=== PATIENT | female | born 1950 | race Caucasian/White ===

== ENCOUNTER 2016-10-09 09:00 | Inpatient (IN) | payer MEDICARE ==
[2016-10-09] MEDS ORDERED: ceFAZolin 2 GM in SODIUM CHLORIDE 0.9% 100 ML IVPB STA (12:48)
[2016-10-09] MEDS ORDERED: LACTATED RINGERS 1,000 ML IV ONE (12:52)
[2016-10-09] MEDS ORDERED: LIDOCAINE 1% 20 ML VIAL (10MG/ML) FOR IV START INTRADERMA ONE (12:53)
[2016-10-09 12:57] LABS: Glucose,Whole Blood 159 mg/dL (75-99)
[2016-10-09] MEDS ORDERED: HEPARIN SODIUM,PORCINE 5,000 UNIT/ML 1 ML VIAL SQ STA (12:57)
[2016-10-09] MEDS ORDERED: ONDANSETRON 4 MG/2 ML VIAL IVP ONE (13:17)
[2016-10-09] MEDS ORDERED: DEXAMETHASONE SOD PHOS (MDV) 100 MG/10 ML VIAL IVP ONE (13:18)
[2016-10-09 13:35] LABS: Anisocytosis Slight; Aty Lym Flag Slight; CH 19.8; CHCM 26.3; HCT 29.5 % (34.0-46.0); HDW 3.18; HGB 8.2 gm/dL (11.4-16.0); Hypochromasia Marked; MCH 20.8 pg (25.0-35.0); MCHC 27.7 g/dL (31.0-37.0); MCV 75.2 fL (80.0-100.0); Mean Platelet Volume 8.4; Microcytosis Moderate; RBC 3.92 m/uL (3.80-5.40); RDW 17.4 % (11.5-15.5); WBC 8.2 k/uL (3.8-10.6); WBC (Perox) 8.66
[2016-10-09 13:38] LABS: Anion Gap 11 mmol/L; Blood Urea Nitrogen 23 mg/dL (7-17); C Reactive Protein 8.1 mg/L (<10.0); Carbon Dioxide 27 mmol/L (22-30); Chloride 104 mmol/L (98-107); Glucose 151 mg/dL (74-99); Magnesium 1.3 mg/dL (1.6-2.3); Non-African American GFR(MDRD) >60 (>60 ml/min/1.73 sqM); Potassium 4.2 mmol/L (3.5-5.1); Sodium 142 mmol/L (137-145)
[2016-10-09 13:47] LABS: INR 1.2 (<1.1); Prothrombin Time 12.2 sec (9.0-12.0)
[2016-10-09 14:18] LABS: Add Differential Manual Differential
[2016-10-09 14:19] LABS: Manual Review Performed; Nucleated Red Blood Cells 0 /100 WBC (0-0); Total Cells Counted 100
[2016-10-09 14:20] LABS: Toxic Granulation Present
[2016-10-09] MEDS ORDERED: PROPOFOL 10 MG/ML 20 ML VIAL IV ONE (14:37)
[2016-10-09] MEDS ORDERED: fentaNYL (PF) 50 MCG/ML 2 ML AMP ONE (14:37)
[2016-10-09] MEDS ORDERED: MIDAZOLAM 2 MG/2 ML VIAL ONE (14:37)
[2016-10-09] MEDS ORDERED: SUCCINYLCHOLINE CHLORIDE 100 MG/5 ML SYR IV ONE (14:37)
[2016-10-09] MEDS ORDERED: LIDOCAINE 1% INJ 10MG/ML (20 ML MDV) ONE (14:37)
[2016-10-09 14:58] LABS: Erythrocyte Sedimentation Rate 14 mm/hr (0-20)
[2016-10-09] MEDS ORDERED: SENNOSIDES-DOCUSATE SODIUM 1 EACH TAB PO PRN (15:35)
[2016-10-09] MEDS ORDERED: HYDROcodone/APAP 5-325MG 1 EACH TAB PO PRN (15:35)
[2016-10-09] MEDS ORDERED: diphenhydrAMINE 25 MG CAP PO PRN (15:35)
[2016-10-09] MEDS ORDERED: ONDANSETRON 4 MG/2 ML VIAL IVP PRN (15:35)
[2016-10-09] MEDS ORDERED: hydrOXYzine PAMOATE 25 MG CAP PO PRN (15:35)
[2016-10-09] MEDS ORDERED: PROCHLORPERAZINE SUPPOSITORY 25 MG SUPP RECTAL PRN (15:35)
[2016-10-09] MEDS ORDERED: TEMAZEPAM 15 MG CAP PO PRN (15:35)
[2016-10-09] MEDS ORDERED: METOCLOPRAMIDE 5 MG/ML 2 ML VIAL IVP PRN (15:35)
[2016-10-09] MEDS ORDERED: HYDROmorphone 1 MG/ML 1 ML SYRINGE IVP PRN ×3 (15:35)
[2016-10-09 16:04] LABS: Glucose,Whole Blood 178 mg/dL (75-99)
[2016-10-09 17:37] LABS: Glucose,Whole Blood 291 mg/dL (75-99)
[2016-10-09] MEDS: LACTATED RINGERS 1,000 ML IV SCH (19:22)
[2016-10-09] MEDS: SOTALOL 80 MG TAB PO SCH (20:40)
[2016-10-09] MEDS: ASPIRIN 325 MG TAB PO SCH (20:40)
[2016-10-09 21:16] LABS: Glucose,Whole Blood 330 mg/dL (75-99)
--- NOTE | 2016-10-09 21:59 | P.CONS ---
History of Present Illness - Reason for Consult Consult date: 10/09/16 - Chief Complaint Pain left knee - History of Present Illness 66-year-old female with a long-standing history of diabetes mellitus type 2, obesity, and COPD presents to Hospital status post fall more than a month ago. She relates that she was trying to kill [place] that was in the house. She lost her balance or 260 pounds fell directly onto the left knee. She felt like was a rug burn at first. In the following days it became worse. She saw her primary care physician. She was treated locally in the office. She had some local debridements performed in the office also. She then developed marked worsening. She was seen in orthopedics. She has now been admitted recently had a room for the surgical incision and drainage of the site. Possibly a patellar bursa debridement also occurred. She's feeling relatively well postoperative. Pain is well-controlled. She denying fevers, chills or rigors. Other new acute complaints at this time. Review of Systems HEENT:Denies headache or acute visual change. Denies sinus or mouth discomforts. Denies neck stiffness or pain. Denies significant oral cavity pain. Denies difficulty on swallowing. Lungs: She has chronic shortness of breath and cough without much sputum production. She has no hemoptysis. Cardiovascular: Chronic shortness of breath with cough but has no orthopnea or PND. She does have dyspnea on exertion. Denies chest pain or pressure Gastrointestinal:Denies nausea, vomiting, diarrhea, constipation, hematemesis, melena, hematochezia. No no significant change of bowel habit noticed. Musculoskeletal: denies significant myalgias or arthralgias. No new joint swelling. Denies new back pain. Skin: As per the HPI Neuro: Denies headache or visual change. Denies any new onset weakness or difficulty with ambulation. Denies falls or seizures. Psychiatric:Denies anxiety or depression. Endocrine: Denies significant fatigue, chronic weight gain Past Medical History Past Medical History: Atrial Fibrillation, Diabetes Mellitus, GERD/Reflux History of Any Multi-Drug Resistant Organisms: None Reported Past Surgical History: Appendectomy, Hysterectomy, Orthopedic Surgery, Tonsillectomy Additional Past Surgical History / Comment(s): cardioversion, arthroscopy lt knee Past Anesthesia/Blood Transfusion Reactions: No Reported Reaction Additional Psychological History / Comment(s): and lives independently. No animal exposures. Retired. Stopped smoking 3 years ago with a [id number] history. Denies alcohol abuse no experience. No travels Smoking Status: Former smoker - Past Family History Mother Family Medical History: No Reported History Medications and Allergies Home Medications and Allergies Comment(s): Current Medications Hydrocodone Bitart/Acetaminophen ([place] 5-325) 1 each PO Q6HR PRN PRN Reason: Pain Scale 1 to 5 Hydrocodone Bitart/Acetaminophen ([place] 5-325) 2 each PO Q6HR PRN PRN Reason: Pain Scale 6 to 10 Aspirin (Aspirin) 325 mg PO BID [facility] Last Admin: 10/09/16 20:40 Dose: Not Given Atenolol (Tenormin) 50 mg PO DAILY [facility] Diphenhydramine HCl (Benadryl) 25 mg PO HS PRN PRN Reason: Insomnia Furosemide (Lasix) 40 mg PO DAILY [facility] Hydromorphone HCl (Dilaudid) 0.125 mg IVP Q3HR PRN PRN Reason: Pain Scale 1 to 3 Hydromorphone HCl (Dilaudid) 0.25 mg IVP Q3HR PRN PRN Reason: Pain Scale 4 to 6 Hydromorphone HCl (Dilaudid) 0.5 mg IVP Q3HR PRN PRN Reason: Pain Scale 7 to 10 Lactated Ringer's (Lactated Ringers) 1,000 mls @ 20 mls/hr IV .Q24H [facility] Last Admin: 10/09/16 19:22 Dose: Not Given Cefazolin Sodium 2 gm/ Sodium (Chloride) 100 mls @ 100 mls/hr IVPB Q8HR [facility] Stop: 10/10/16 08:59 Isosorbide Mononitrate (Imdur) 60 mg PO DAILY [facility] Lisinopril (Zestril) 20 mg PO DAILY [facility] Metformin HCl (Glucophage) 1,000 mg PO BID-W/MEALS [facility] Metoclopramide HCl (Reglan) 10 mg IVP Q6HR PRN PRN Reason: Nausea And Vomiting Miscellaneous Information (Pre Op Abx Message) 1 each MISCELLANE ONCE ONE Stop: 10/10/16 05:01 Multivitamins (Theragran) 1 each PO DAILY@1200 [facility] Pantoprazole Sodium (Protonix) 40 mg PO AC-BRKFST [facility] Prochlorperazine Maleate (Compazine) 25 mg RECTAL BID PRN PRN Reason: Nausea And Vomiting Rivaroxaban (Xarelto) 20 mg PO W/SUPPER [facility] Senna/Docusate Sodium (Senokot-S) 2 each PO HS PRN PRN Reason: Constipation Sotalol HCl (Betapace) 80 mg PO BID [facility] Last Admin: 10/09/16 20:40 Dose: Not Given Temazepam (Restoril) 15 mg PO HS PRN PRN Reason: Insomnia Home Medications Medication Instructions Recorded Confirmed Type Aspirin 325 mg PO DAILY 06/17/16 10/09/16 History Atenolol [Tenormin] 50 mg PO DAILY 06/17/16 10/09/16 History Enalapril [Vasotec] 20 mg PO DAILY 06/17/16 10/09/16 History Furosemide [Lasix] 40 mg PO DAILY 06/17/16 10/09/16 History Isosorbide Mononitrate ER [Imdur] 60 mg PO DAILY 06/17/16 10/09/16 History Multivitamins, Thera [Multivitamin] 1 tab PO DAILY 06/17/16 10/09/16 History Omeprazole [PriLOSEC] 20 mg PO -[facility] 06/17/16 10/09/16 History Rivaroxaban [Xarelto] 20 mg PO DAILY 06/17/16 10/09/16 History Sotalol [Betapace] 80 mg PO BID 06/17/16 10/09/16 History metFORMIN HCL 1,000 mg PO BID 06/17/16 10/09/16 History Allergies Allergy/AdvReac Type Severity Reaction Status Date / Time No Known Allergies Allergy Verified 06/17/16 10:27 Physical Exam Vitals: Vital Signs Temp Pulse Pulse Resp BP BP Pulse Ox 10/09/16 16:20 84 18 164/80 96 10/09/16 16:05 87 18 162/82 96 10/09/16 15:50 79 18 166/85 97 10/09/16 15:35 85 18 182/84 97 10/09/16 15:20 97.6 F 96 20 184/79 96 10/09/16 12:20 97.8 F 85 16 149/91 96 Intake and Output 10/09/16 10/09/16 10/09/16 06:59 14:59 22:59 Intake Total 600 100 Output Total 5 Balance 600 95 Intake: IV 600 100 Output: Estimated Blood Loss 5 Other: Weight 117.934 kg Patient Weight 10/10/16 06:59 Weight 117.934 kg Obese 66-year-old woman who is comfortable at this time. HEENT: Anicteric conjunctiva are pink and moist nasal mucosa grossly intact without significant lesions, there is no thrush. Neck: The neck is supple without significant lymphadenopathy or thyromegaly. Lungs: Symmetrical air entry. Expiratory wheezes are scattered in the lung hernandez but no jesus bronchial sounds are heard. No dullness or egophony is noted. Heart: Regular rate and rhythm with an audible S1-S2, no S3 no S4. There is no significant murmur click or rub, PMI was nondisplaced. Abdomen: Obese, Positive bowel sounds soft and nontender without palpable masses or organomegaly. There was no guarding or rebound. Extremities: The upper extremities have excellent pulses they are symmetric, no significant petechiae or telangiectasia. No splinter hemorrhages were noted. T the right lower extremity reveals no acute injuries or lesions. The left lower extremity reveals evidence the recent surgical intervention and being such a short time the dressing is not removed. Above and below the dressing is not ascending erythema. No ascending lymphangitis. No lymphadenopathy to the left groin. No other abnormal lymph nodes are noted. Neuro: Awake alert oriented to person place and time. There are no acute new gross focal sensory motor deficits. Results CBC & Chem 7: 10/09/16 13:10 10/09/16 13:10 Labs: Abnormal Lab Results - Last 24 Hours (Table) 10/09/16 10/09/16 10/09/16 Range/Units 12:55 13:10 13:10 Hgb 8.2 L (11.4-16.0) gm/dL Hct 29.5 L (34.0-46.0) % MCV 75.2 L (80.0-100.0) fL MCH 20.8 L (25.0-35.0) pg MCHC 27.7 L (31.0-37.0) g/dL RDW 17.4 H (11.5-15.5) % PT (9.0-12.0) sec BUN 23 H (7-17) mg/dL Glucose 151 H (74-99) mg/dL POC Glucose (mg/dL) 159 H (75-99) mg/dL Magnesium 1.3 L (1.6-2.3) mg/dL 10/09/16 10/09/16 10/09/16 Range/Units 13:10 16:01 17:35 Hgb (11.4-16.0) gm/dL Hct (34.0-46.0) % MCV (80.0-100.0) fL MCH (25.0-35.0) pg MCHC (31.0-37.0) g/dL RDW (11.5-15.5) % PT 12.2 H (9.0-12.0) sec BUN (7-17) mg/dL Glucose (74-99) mg/dL POC Glucose (mg/dL) 178 H 291 H (75-99) mg/dL Magnesium (1.6-2.3) mg/dL 10/09/16 Range/Units 20:51 Hgb (11.4-16.0) gm/dL Hct (34.0-46.0) % MCV (80.0-100.0) fL MCH (25.0-35.0) pg MCHC (31.0-37.0) g/dL RDW (11.5-15.5) % PT (9.0-12.0) sec BUN (7-17) mg/dL Glucose (74-99) mg/dL POC Glucose (mg/dL) 330 H (75-99) mg/dL Magnesium (1.6-2.3) mg/dL Laboratory Results WBC 8.2 k/uL (3.8-10.6) 10/09/16 13:10 RBC 3.92 m/uL (3.80-5.40) 10/09/16 13:10 Hgb 8.2 gm/dL (11.4-16.0) L 10/09/16 13:10 Hct 29.5 % (34.0-46.0) L 10/09/16 13:10 MCV 75.2 fL (80.0-100.0) L 10/09/16 13:10 MCH 20.8 pg (25.0-35.0) L 10/09/16 13:10 MCHC 27.7 g/dL (31.0-37.0) L 10/09/16 13:10 RDW 17.4 % (11.5-15.5) H 10/09/16 13:10 Plt Count 351 k/uL (150-450) 10/09/16 13:10 Neutrophils % (Manual) 74.0 % 10/09/16 13:10 Lymphocytes % (Manual) 21.0 % 10/09/16 13:10 Monocytes % (Manual) 5.0 % 10/09/16 13:10 Neutrophils # (Manual) 6.1 k/uL (1.3-7.7) 10/09/16 13:10 Lymphocytes # (Manual) 1.7 k/uL (1.0-4.8) 10/09/16 13:10 Monocytes # (Manual) 0.4 k/uL (0-1.0) 10/09/16 13:10 Nucleated RBCs 0 /100 WBC (0-0) 10/09/16 13:10 Manual Slide Review Performed 10/09/16 13:10 Toxic Granulation Present 10/09/16 13:10 Hypochromasia Marked 10/09/16 13:10 Poikilocytosis (manual Present 10/09/16 13:10 Anisocytosis Slight 10/09/16 13:10 Microcytosis Moderate 10/09/16 13:10 ESR 14 mm/hr (0-20) 10/09/16 13:10 PT 12.2 sec (9.0-12.0) H 10/09/16 13:10 INR 1.2 (<1.1) 10/09/16 13:10 Sodium 142 mmol/L (137-145) 10/09/16 13:10 Potassium 4.2 mmol/L (3.5-5.1) 10/09/16 13:10 Chloride 104 mmol/L (98-107) 10/09/16 13:10 Carbon Dioxide 27 mmol/L (22-30) 10/09/16 13:10 Anion Gap 11 mmol/L 10/09/16 13:10 BUN 23 mg/dL (7-17) H 10/09/16 13:10 Creatinine 0.80 mg/dL (0.52-1.04) 10/09/16 13:10 Est GFR (MDRD) Af Amer >60 (>60 ml/min/1.73 sqM) 10/09/16 13:10 Est GFR (MDRD) Non-Af >60 (>60 ml/min/1.73 sqM) 10/09/16 13:10 Glucose 151 mg/dL (74-99) H 10/09/16 13:10 POC Glucose (mg/dL) 330 mg/dL (75-99) H 10/09/16 20:51 POC Glu Staff Physical Therapy Assistant ID Nidia Benites 10/09/16 20:51 Magnesium 1.3 mg/dL (1.6-2.3) L 10/09/16 13:10 C-Reactive Protein 8.1 mg/L (<10.0) 10/09/16 13:10 Assessment and Plan (1) Ulcer of left knee Narrative/Plan: 66-year-old female with a history of obesity, diabetes mellitus type 2 poorly controlled and COPD presents to Hospital for evaluation and surgical incision and drainage of her left knee. Suffered a fall approximately a month ago was been having a nonhealing ulceration since. Appears to possibly had a bursal involvement. Now status post incision and drainage. Dressings intact at this time. Cultures are process. No notation from the out patient evaluations of MRSA. We'll continue ceftezole and and high dose given her obesity and normal renal function. Local wound care can be derived once the postsurgical dressings are removed. If the bursa infection was encountered may do well to have a course of intravenous antibiotic therapy at discharge. Status: Acute (2) Traumatic ecchymosis of left knee Status: Acute (3) Diabetes mellitus type 2 in obese Status: Acute (4) Anemia Status: Acute
[2016-10-09] MEDS: HYDROcodone/APAP 5-325MG 1 EACH TAB PO PRN (22:46)
[2016-10-10] MEDS: ceFAZolin 2 GM in SODIUM CHLORIDE 0.9% 100 ML IVPB SCH ×2 (00:35→07:20)
[2016-10-10] MEDS: HYDROcodone/APAP 5-325MG 1 EACH TAB PO PRN ×2 (01:07→17:46)
[2016-10-10] MEDS ORDERED: Pre Op ABX Message 1 EACH MISC MISCELLANE ONE (05:00)
[2016-10-10] MEDS ORDERED: PANTOPRAZOLE 40 MG TABLET PO SCH (07:30)
[2016-10-10] MEDS ORDERED: metFORMIN 500 MG TAB PO SCH ×4 (07:30→19:30)
[2016-10-10 07:38] LABS: Glucose,Whole Blood 264 mg/dL (75-99)
[2016-10-10 08:52] LABS: Anisocytosis Slight; Aty Lym Flag Slight; CH 19.7; CHCM 24.9; HCT 29.1 % (34.0-46.0); HDW 2.99; HGB 7.6 gm/dL (11.4-16.0); Hypochromasia Marked; MCH 20.5 pg (25.0-35.0); MCV 78.9 fL (80.0-100.0); Mean Platelet Volume 7.1; Microcytosis Slight; RBC 3.69 m/uL (3.80-5.40); RDW 17.2 % (11.5-15.5); WBC 12.2 k/uL (3.8-10.6); WBC (Perox) 13.04
[2016-10-10] MEDS ORDERED: FUROSEMIDE 40 MG TAB PO SCH (09:00)
[2016-10-10] MEDS ORDERED: LISINOPRIL 20 MG TAB PO SCH ×2 (09:00→18:00)
[2016-10-10] MEDS ORDERED: ATENOLOL 50 MG TAB PO SCH (09:00)
[2016-10-10] MEDS ORDERED: ISOSORBIDE MONONITRATE ER 60 MG TAB.ER.24H PO SCH (09:00)
--- NOTE | 2016-10-10 09:02 | P.PN ---
Subjective Principal diagnosis: Open wound left knee Status post irrigation and debridement left knee This is a 66-year-old female who is status post irrigation and debridement of her wound to the left knee. We are waiting recommendations by infectious disease. She is doing well today with no new complaints or concerns. Vital signs are stable. Objective - Vital Signs Vital signs: Vital Signs Temp 97.9 F 10/10/16 07:00 Pulse 92 10/10/16 07:00 Resp 20 10/10/16 07:00 BP 130/60 10/10/16 07:00 Pulse Ox 95 10/10/16 07:00 Intake & Output 10/09/16 10/10/16 10/10/16 18:59 06:59 18:59 Intake Total 700 1090 Output Total 5 Balance 695 1090 Weight 117.934 kg Intake: IV 700 Intake, IV Titration 300 Amount Lactated Ringers 1,000 ml 200 @ 20 mls/hr IV .Q24H [facility] Rx#:[id number] ceFAZolin 2 gm In Sodium 100 Chloride 0.9% 100 ml @ 100 mls/hr IVPB Q8HR [facility] Rx#:[id number] Oral 790 Output: Estimated Blood Loss 5 Other: Voiding Method Toilet # Voids 3 2 - Exam This is a pleasant 66-year-old female in no acute distress. She is alert and oriented 3. Exam the left knee reveals that her dressing is clean, dry and intact. She has full foot and ankle motion without difficulty or pain. Neurovascular status to the lower extremities intact. - Labs CBC & Chem 7: 10/09/16 13:10 10/09/16 13:10 Labs: Abnormal Lab Results - Last 24 Hours (Table) 10/09/16 10/09/16 10/09/16 Range/Units 12:55 13:10 13:10 Hgb 8.2 L (11.4-16.0) gm/dL Hct 29.5 L (34.0-46.0) % MCV 75.2 L (80.0-100.0) fL MCH 20.8 L (25.0-35.0) pg MCHC 27.7 L (31.0-37.0) g/dL RDW 17.4 H (11.5-15.5) % PT (9.0-12.0) sec BUN 23 H (7-17) mg/dL Glucose 151 H (74-99) mg/dL POC Glucose (mg/dL) 159 H (75-99) mg/dL Magnesium 1.3 L (1.6-2.3) mg/dL 10/09/16 10/09/16 10/09/16 Range/Units 13:10 16:01 17:35 Hgb (11.4-16.0) gm/dL Hct (34.0-46.0) % MCV (80.0-100.0) fL MCH (25.0-35.0) pg MCHC (31.0-37.0) g/dL RDW (11.5-15.5) % PT 12.2 H (9.0-12.0) sec BUN (7-17) mg/dL Glucose (74-99) mg/dL POC Glucose (mg/dL) 178 H 291 H (75-99) mg/dL Magnesium (1.6-2.3) mg/dL 10/09/16 10/10/16 Range/Units 20:51 07:29 Hgb (11.4-16.0) gm/dL Hct (34.0-46.0) % MCV (80.0-100.0) fL MCH (25.0-35.0) pg MCHC (31.0-37.0) g/dL RDW (11.5-15.5) % PT (9.0-12.0) sec BUN (7-17) mg/dL Glucose (74-99) mg/dL POC Glucose (mg/dL) 330 H 264 H (75-99) mg/dL Magnesium (1.6-2.3) mg/dL Microbiology - Last 24 Hours (Table) 10/09/16 15:02 Gram Stain - Preliminary Knee - Left Wound Culture - Preliminary 10/09/16 15:02 Anaerobic Culture - Preliminary Knee - Left Assessment and Plan (1) Diabetes mellitus type 2 in obese Status: Acute (2) Open wound of left knee Status: Acute Plan: The clinical findings are discussed the patient. We're waiting recommendations for wound care by Dr. Cortés. She'll most likely follow-up with home care center.
[2016-10-10] MEDS: ASPIRIN 325 MG TAB PO SCH ×2 (09:26→20:15)
[2016-10-10] MEDS: SOTALOL 80 MG TAB PO SCH (09:27)
[2016-10-10 10:45] LABS: Add Differential Manual Differential
[2016-10-10 10:46] LABS: Manual Review Performed; Nucleated Red Blood Cells 0 /100 WBC (0-0); Total Cells Counted 100
[2016-10-10 11:29] LABS: Glucose,Whole Blood 168 mg/dL (75-99)
[2016-10-10] MEDS: LACTATED RINGERS 1,000 ML IV SCH (14:19)
[2016-10-10] MEDS: MULTIVITAMINS, THERA 1 EACH TAB PO SCH (14:20)
[2016-10-10] MEDS ORDERED: ALPRAZolam 0.25 MG TAB PO PRN (16:47)
--- NOTE | 2016-10-10 17:10 | OP ---
DATE OF SERVICE: 10/09/2016 SURGEON: MYAH TONG DO CONTRACT CONSULTANT: none PREOPERATIVE DIAGNOSIS: Open devitalized wound of the anterior aspect of the left knee following contusion. POSTOPERATIVE DIAGNOSIS: Open devitalized wound of the anterior aspect of the left knee following contusion; possible underlying infection. OPERATION: Surgical debridement of the devitalized soft tissue, anterior aspect of the left knee with full thickness incision and [place] drain placement patella. ANESTHESIA: ESTIMATED BLOOD LOSS: SPECIMENS REMOVED: COMPLICATIONS: OPERATIVE FINDINGS: DESCRIPTION OF PROCEDURE: The patient was taken to the operative suite and placed in supine position. General inhalation anesthesia was performed by the department of anesthesiology. Betadine prep was carried out over the left knee and sterile drapes were applied in the usual manner. Sharp debridement through the subcutaneous layer and around edges was carried out. The subcutaneous tissue was excised and copiously irrigated with Pulsavac antibiotic solution was performed. A [place] drain was inserted and sutured into position with 2-0 Vicryl. A sterile dressing utilizing the Silvadene was placed in the wound. Adaptic 4x4 sterile padding was maintained. She was transferred to the recovery room in satisfactory postoperative condition. GROSS PATHOLOGY: There was evidence of delayed healing with patella contusion approximately 5 weeks ago. A culture and sensitivity was obtained from wound. Wound care was ordered with possible wound vac. DARIANA
[2016-10-10] MEDS ORDERED: RIVAROXABAN 10 MG TAB PO SCH (17:30)
[2016-10-10 17:32] LABS: Glucose,Whole Blood 116 mg/dL (75-99)
[2016-10-10] MEDS: INSULIN LISPRO (humaLOG) 300 UNIT/3 ML VIAL SQ SCH ×2 (17:45→20:15)
[2016-10-10 18:47] LABS: Hemoglobin A1C 6.3 % (4.2-6.1)
[2016-10-10 18:53] LABS: Appearance,Urine Clear (Clear); Bilirubin,Urine Negative (Negative); Glucose,Urine (UA) Negative (Negative); Ketones,Urine Negative (Negative); Leukocyte Esterase,Urine Negative (Negative); Nitrite,Urine Negative (Negative); PH, Urine 5.5 (5.0-8.0); Particle Count 1304; Protein,Urine 1+ (Negative); RBC,Urine 1 /hpf (0-5); Specific Gravity,Urine 1.025 (1.001-1.035); Squamous Epithelial Cell,Urine 1 /hpf (0-4); UA Billing (MACRO vs. MICRO) MICRO; Urobilinogen,Urine <2.0 mg/dL (<2.0); WBC,Urine 1 /hpf (0-5)
--- NOTE | 2016-10-10 18:55 | CONS ---
DATE OF CONSULTATION: 10/10/2016 REASON FOR CONSULTATION: Advice regarding diabetes mellitus and other multiple medical issues requested by Dr. Lopez. HISTORY OF PRESENT ILLNESS: This 66 year old woman with a past medical history of multiple medical problems including atrial fibrillation, diabetes mellitus, GERD, history of appendectomy, history of hysterectomy, being followed by Dr. Reilly in the outpatient setting apparently feel on the left knee about a few weeks ago. The patient is sustained an ulcer, which was not improving and the patient came to [facility] and Dr. Lopez saw the patient and performed irrigation and debridement of the wound to the left knee. The final cultures are pending at this time. The patient on broad-spectrum IV antibiotics. There is no history of any fever, rigors or chills. No history of headache, loss of consciousness or seizures at this time. Past medical history of atrial fibrillation, diabetes, gastroesophageal reflux disease, appendectomy, history of orthopedic surgery. Medications prior to admission include: 1. Metformin 1000 mg p.o. b.i.d. 2. Sotalol 80 mg p.o. b.i.d. 3. Xarelto 20 mg p.o. daily. 4. Prilosec 20 mg q.h.s. 5. Multivitamin one p.o. daily. 6. Imdur 60 mg. 7. Lasix 40 mg. 8. Vasotec 20 mg b.i.d. 9. Tenormin 50 mg daily. 10. Aspirin 325 mg daily. ALLERGIES: None. FAMILY HISTORY: No history of heart disease or strokes in the family. SOCIAL HISTORY: Previous history of smoking. No history of current smoking or alcohol intake. REVIEW OF SYSTEMS: ENT: No diminishing hearing. No diminished vision. CARDIOVASCULAR: No angina or palpitations. RESPIRATORY: No cough. GI: No nausea. : No dysuria. Nervous system: No numbness, weakness. ALLERGIES/IMMUNOLOGY: No history of asthma or hayfever. MUSCULOSKELETAL: As mentioned earlier. HEMATOLOGY/ONCOLOGY: As mentioned earlier. ENDOCRINE: As mentioned earlier. CONSTITUTIONAL: As mentioned earlier. DERMATOLOGY: Negative. RHEUMATOLOGY: Negative. PSYCHIATRY: As mentioned earlier. PHYSICAL EXAMINATION: The patient is alert and oriented x3. Pulse 89, blood pressure 138/75. Respiratory rate 16. Temperature 98.1. Pulse ox 92% on room air. HEENT: Conjunctivae normal. Oral mucosa moist. NECK: No jugular venous distention. No carotid bruit. No lymph node enlargement. CARDIOVASCULAR: S1, S2 muffled. RESPIRATORY: Breath sounds diminished at the bases. No rhonchi, no crackles. ABDOMEN: Soft, nontender, obese. No mass palpable. Legs: Status post left irrigation and debridement of the left knee, which is dressed. Otherwise pulses felt normal. CENTRAL NERVOUS SYSTEM: Higher function as mentioned. Moves all four limbs. No focal motor or sensory deficits. LYMPHATICS: No lymph nodes palpable in the neck, axillae or groin. SKIN: As mentioned earlier. LABS: WBC 12.5, hemoglobin 7.6 Accu-Cheks noted. ASSESSMENT: 1. Left ulcer, possibly posttraumatic, status post irrigation and debridement. 2. Diabetes mellitus type 2. 3. Hypomagnesemia. 4. Anemia, normocytic anemia of chronic disease. 5. Increased WBC. 6. Obesity with body mass index of 38.5. 7. History of atrial fibrillation. 8. History of diabetes mellitus type 2. 9. History of gastroesophageal reflux disease. 10. History of appendectomy. 11. History of hysterectomy. 12. Remote history of nicotine dependence. 13. FULL CODE. RECOMMENDATIONS AND DISCUSSION: In this 66-year-old woman who presented with multiple complex medical problems, we will monitor the patient closely, continue the current medications, continue symptomatic treatment. Recommend resume the home medications. Accu-Cheks a.c. and at bedtime and empiric antibiotics. Follow the cultures. Closely follow with infectious disease. Guarded prognosis because of multiple complex medical issues. Further recommendations to follow. A copy of dictation being forwarded to Dr. Reilly who is the primary physician. Deep venous thrombosis prophylaxis.
[2016-10-10] MEDS ORDERED: SOTALOL 80 MG TAB PO SCH ×2 (19:30)
[2016-10-10] MEDS ORDERED: ATENOLOL 50 MG PO SCH (20:11)
[2016-10-10 21:11] LABS: Glucose,Whole Blood 147 mg/dL (75-99)
--- NOTE | 2016-10-10 23:03 | P.PN ---
Subjective Principal diagnosis: trauma left knee 66-year-old female with a long-standing history of diabetes mellitus type 2, obesity, and COPD presents to Hospital status post fall more than a month ago. She relates that she was trying to kill [place] that was in the house. She lost her balance or 260 pounds fell directly onto the left knee. She felt like was a rug burn at first. In the following days it became worse. She saw her primary care physician. She was treated locally in the office. She had some local debridements performed in the office also. She then developed marked worsening. She was seen in orthopedics. She has now been admitted recently had a room for the surgical incision and drainage of the site. Possibly a patellar bursa debridement also occurred. She's feeling relatively well postoperative. Pain is well-controlled. She denying fevers, chills or rigors. Other new acute complaints at this time. eeling better today. Case is discussed with the surgeons a deep debridement has occurred and appears to involve the bursa Objective - Vital Signs Vital signs: Vital Signs Temp 98.1 F 10/10/16 15:00 Pulse 89 10/10/16 22:51 Resp 16 10/10/16 22:51 BP 138/75 10/10/16 15:00 Pulse Ox 91 L 10/10/16 15:00 Intake & Output 10/10/16 10/10/16 10/11/16 06:59 18:59 06:59 Intake Total 1090 1580 80 Balance 1090 1580 80 Intake: Intake, IV Titration 300 260 80 Amount Lactated Ringers 1,000 ml 200 160 80 @ 20 mls/hr IV .Q24H NEREIDA Rx#:[id number] ceFAZolin 2 gm In Sodium 100 100 Chloride 0.9% 100 ml @ 100 mls/hr IVPB Q8HR NEREIDA Rx#:[id number] Oral 790 1320 Other: Voiding Method Toilet Toilet Toilet # Voids 3 3 - Exam Obese 66-year-old woman who is comfortable at this time. HEENT: Anicteric conjunctiva are pink and moist nasal mucosa grossly intact without significant lesions, there is no thrush. Neck: The neck is supple without significant lymphadenopathy or thyromegaly. Lungs: Symmetrical air entry. Expiratory wheezes are scattered in the lung hernandez but no jesus bronchial sounds are heard. No dullness or egophony is noted. Heart: Regular rate and rhythm with an audible S1-S2, no S3 no S4. There is no significant murmur click or rub, PMI was nondisplaced. Abdomen: Obese, Positive bowel sounds soft and nontender without palpable masses or organomegaly. There was no guarding or rebound. Extremities: The upper extremities have excellent pulses they are symmetric, no significant petechiae or telangiectasia. No splinter hemorrhages were noted. T the right lower extremity reveals no acute injuries or lesions. The left lower extremity reveals evidence the recent surgical intervention The surgical ulceration is noted. Measuring at 3.2 x 5.1 x 0.7 cm. There is some undermining at the 6 o'clock position of about a centimeter. There is still good amount of slough at the base the wound. Drainage is still in place. This is minimally tender. . No ascending lymphangitis. No lymphadenopathy to the left groin. No other abnormal lymph nodes are noted. Neuro: Awake alert oriented to person place and time. There are no acute new gross focal sensory motor deficits. - Labs CBC & Chem 7: 10/10/16 08:00 10/09/16 13:10 Labs: Abnormal Lab Results - Last 24 Hours (Table) 10/10/16 10/10/16 10/10/16 Range/Units 07:29 08:00 08:00 WBC 12.2 H (3.8-10.6) k/uL RBC 3.69 L (3.80-5.40) m/uL Hgb 7.6 L (11.4-16.0) gm/dL Hct 29.1 L (34.0-46.0) % MCV 78.9 L (80.0-100.0) fL MCH 20.5 L (25.0-35.0) pg MCHC 26.0 L (31.0-37.0) g/dL RDW 17.2 H (11.5-15.5) % Neutrophils # (Manual) 10.0 H (1.3-7.7) k/uL Lymphocytes # (Manual) 0.9 L (1.0-4.8) k/uL Monocytes # (Manual) 1.3 H (0-1.0) k/uL POC Glucose (mg/dL) 264 H (75-99) mg/dL Hemoglobin A1c 6.3 H (4.2-6.1) % Urine Protein (Negative) 10/10/16 10/10/16 10/10/16 Range/Units 11:23 17:29 18:30 WBC (3.8-10.6) k/uL RBC (3.80-5.40) m/uL Hgb (11.4-16.0) gm/dL Hct (34.0-46.0) % MCV (80.0-100.0) fL MCH (25.0-35.0) pg MCHC (31.0-37.0) g/dL RDW (11.5-15.5) % Neutrophils # (Manual) (1.3-7.7) k/uL Lymphocytes # (Manual) (1.0-4.8) k/uL Monocytes # (Manual) (0-1.0) k/uL POC Glucose (mg/dL) 168 H 116 H (75-99) mg/dL Hemoglobin A1c (4.2-6.1) % Urine Protein 1+ H (Negative) 10/10/16 Range/Units 21:02 WBC (3.8-10.6) k/uL RBC (3.80-5.40) m/uL Hgb (11.4-16.0) gm/dL Hct (34.0-46.0) % MCV (80.0-100.0) fL MCH (25.0-35.0) pg MCHC (31.0-37.0) g/dL RDW (11.5-15.5) % Neutrophils # (Manual) (1.3-7.7) k/uL Lymphocytes # (Manual) (1.0-4.8) k/uL Monocytes # (Manual) (0-1.0) k/uL POC Glucose (mg/dL) 147 H (75-99) mg/dL Hemoglobin A1c (4.2-6.1) % Urine Protein (Negative) Microbiology - Last 24 Hours (Table) 10/09/16 15:02 Gram Stain - Preliminary Knee - Left Wound Culture - Preliminary Presumptive Staph aureus 10/09/16 15:02 Anaerobic Culture - Preliminary Knee - Left Laboratory Results WBC 12.2 k/uL (3.8-10.6) H 10/10/16 08:00 RBC 3.69 m/uL (3.80-5.40) L 10/10/16 08:00 Hgb 7.6 gm/dL (11.4-16.0) L 10/10/16 08:00 Hct 29.1 % (34.0-46.0) L 10/10/16 08:00 MCV 78.9 fL (80.0-100.0) L 10/10/16 08:00 MCH 20.5 pg (25.0-35.0) L 10/10/16 08:00 MCHC 26.0 g/dL (31.0-37.0) L 10/10/16 08:00 RDW 17.2 % (11.5-15.5) H 10/10/16 08:00 Plt Count 364 k/uL (150-450) 10/10/16 08:00 Neutrophils % (Manual) 82.0 % 10/10/16 08:00 Lymphocytes % (Manual) 7.0 % 10/10/16 08:00 Monocytes % (Manual) 11.0 % 10/10/16 08:00 Neutrophils # (Manual) 10.0 k/uL (1.3-7.7) H 10/10/16 08:00 Lymphocytes # (Manual) 0.9 k/uL (1.0-4.8) L 10/10/16 08:00 Monocytes # (Manual) 1.3 k/uL (0-1.0) H 10/10/16 08:00 Nucleated RBCs 0 /100 WBC (0-0) 10/10/16 08:00 Manual Slide Review Performed 10/10/16 08:00 Toxic Granulation Present 10/09/16 13:10 Hypochromasia Marked 10/10/16 08:00 Poikilocytosis (manual Present 10/10/16 08:00 Anisocytosis Slight 10/10/16 08:00 Microcytosis Slight 10/10/16 08:00 ESR 14 mm/hr (0-20) 10/09/16 13:10 PT 12.2 sec (9.0-12.0) H 10/09/16 13:10 INR 1.2 (<1.1) 10/09/16 13:10 Sodium 142 mmol/L (137-145) 10/09/16 13:10 Potassium 4.2 mmol/L (3.5-5.1) 10/09/16 13:10 Chloride 104 mmol/L (98-107) 10/09/16 13:10 Carbon Dioxide 27 mmol/L (22-30) 10/09/16 13:10 Anion Gap 11 mmol/L 10/09/16 13:10 BUN 23 mg/dL (7-17) H 10/09/16 13:10 Creatinine 0.80 mg/dL (0.52-1.04) 10/09/16 13:10 Est GFR (MDRD) Af Amer >60 (>60 ml/min/1.73 sqM) 10/09/16 13:10 Est GFR (MDRD) Non-Af >60 (>60 ml/min/1.73 sqM) 10/09/16 13:10 Glucose 151 mg/dL (74-99) H 10/09/16 13:10 POC Glucose (mg/dL) 147 mg/dL (75-99) H 10/10/16 21:02 POC Glu [employer] Engineer JEM Kassidy Dill 10/10/16 21:[address] Glu mg/dL 134 mg/dL 10/10/16 08:00 Hemoglobin A1c 6.3 % (4.2-6.1) H 10/10/16 08:00 Magnesium 1.3 mg/dL (1.6-2.3) L 10/09/16 13:10 C-Reactive Protein 8.1 mg/L (<10.0) 10/09/16 13:10 Urine Color Yellow 10/10/16 18:30 Urine Appearance Clear (Clear) 10/10/16 18:30 Urine pH 5.5 (5.0-8.0) 10/10/16 18:30 Ur Specific Meta 1.025 (1.001-1.035) 10/10/16 18:30 Urine Protein 1+ (Negative) H 10/10/16 18:30 Urine Glucose (UA) Negative (Negative) 10/10/16 18:30 Urine Ketones Negative (Negative) 10/10/16 18:30 Urine Blood Negative (Negative) 10/10/16 18:30 Urine Nitrite Negative (Negative) 10/10/16 18:30 Urine Bilirubin Negative (Negative) 10/10/16 18:30 Urine Urobilinogen <2.0 mg/dL (<2.0) 10/10/16 18:30 Ur Leukocyte Esterase Negative (Negative) 10/10/16 18:30 Urine RBC 1 /hpf (0-5) 10/10/16 18:30 Urine WBC 1 /hpf (0-5) 10/10/16 18:30 Ur Squamous Epith Cells 1 /hpf (0-4) 10/10/16 18:30 Hyaline Casts 1 /lpf (0-2) 10/10/16 18:30 Microbiology 10/09/16 15:02 Knee - Left Gram Stain - Preliminary 10/09/16 15:02 Knee - Left Wound Culture - Preliminary Presumptive Staph aureus 10/09/16 15:02 Knee - Left Anaerobic Culture - Preliminary Assessment and Plan (1) Ulcer of left knee Narrative/Plan: 66-year-old female with a history of obesity, diabetes mellitus type 2 poorly controlled and COPD presents to Hospital for evaluation and surgical incision and drainage of her left knee. Suffered a fall approximately a month ago was been having a nonhealing ulceration since. Appears to possibly had a bursal involvement. Now status post incision and drainage. Dressings intact at this time. Cultures are process. No notation from the out patient evaluations of MRSA. We'll continue ceftezole and and high dose given her obesity and normal renal function. Local wound care will be opticell silver and once infection is improved then wound vac can be used. Appears the infection is deep and will plan a course of outpatient IV antibiotic therapy likely at the office. Cultures will direct antibiotic therapy. PICC on thursday Status: Acute (2) Traumatic ecchymosis of left knee Status: Acute (3) Diabetes mellitus type 2 in obese Status: Acute (4) Anemia Status: Acute
[2016-10-11 07:14] LABS: Glucose,Whole Blood 129 mg/dL (75-99)
[2016-10-11] MEDS ORDERED: PANTOPRAZOLE 40 MG TABLET PO SCH (07:30)
[2016-10-11] MEDS: ASPIRIN 325 MG TAB PO SCH ×2 (08:03→20:16)
[2016-10-11] MEDS: INSULIN LISPRO (humaLOG) 300 UNIT/3 ML VIAL SQ SCH ×4 (08:03→20:16)
[2016-10-11] MEDS: OMEPRAZOLE 20 MG PO SCH (08:03)
[2016-10-11] MEDS: METFORMIN 1000 MG PO SCH ×2 (08:03→20:15)
[2016-10-11] MEDS: SOTALOL 80 MG PO SCH ×2 (08:04→20:15)
[2016-10-11] MEDS: ENALAPRIL 20 MG PO SCH (08:04)
[2016-10-11] MEDS: FUROSEMIDE 40 MG PO SCH (08:04)
[2016-10-11] MEDS: ATENOLOL 50 MG PO SCH (08:04)
[2016-10-11] MEDS: ISOSORBIDE MONONITRATE 60 MG PO SCH (08:04)
[2016-10-11 08:53] LABS: Anisocytosis Slight; Aty Lym Flag Slight; CH 19.7; HDW 2.96; HGB 7.9 gm/dL (11.4-16.0); Hypochromasia Marked; MCH 21.5 pg (25.0-35.0); MCHC 27.3 g/dL (31.0-37.0); MCV 78.8 fL (80.0-100.0); Mean Platelet Volume 7.5; Microcytosis Slight; RBC 3.68 m/uL (3.80-5.40); RDW 17.1 % (11.5-15.5); WBC 11.4 k/uL (3.8-10.6); WBC (Perox) 11.41
[2016-10-11 08:56] LABS: Anion Gap 12 mmol/L; Blood Urea Nitrogen 35 mg/dL (7-17); Calcium 8.8 mg/dL (8.4-10.2); Carbon Dioxide 26 mmol/L (22-30); Chloride 104 mmol/L (98-107); Glucose 107 mg/dL (74-99); Magnesium 1.4 mg/dL (1.6-2.3); Non-African American GFR(MDRD) 55 (>60 ml/min/1.73 sqM); Potassium 4.6 mmol/L (3.5-5.1); Sodium 142 mmol/L (137-145)
--- NOTE | 2016-10-11 09:53 | P.PN ---
Subjective Principal diagnosis: Open wound of left knee, Status post irrigation and debridement left knee This is a pleasant 66-year-old female status post irrigation and debridement of the left knee. This is postoperative day #1. Patient reports her pain is under control. Patient states she has been keeping the wound covered as directed. Patient denies any fever/chills. Patient has no new complaints today. Objective - Vital Signs Vital signs: Vital Signs Temp 97.5 F L 10/11/16 07:00 Pulse 81 10/11/16 07:00 Resp 18 10/11/16 07:00 BP 147/70 10/11/16 07:00 Pulse Ox 92 L 10/11/16 07:00 Intake & Output 10/10/16 10/11/16 10/11/16 18:59 06:59 18:59 Intake Total 1580 80 Balance 1580 80 Intake: Intake, IV Titration 260 80 Amount Lactated Ringers 1,000 ml 160 80 @ 20 mls/hr IV .Q24H NEREIDA Rx#:[id number] ceFAZolin 2 gm In Sodium 100 Chloride 0.9% 100 ml @ 100 mls/hr IVPB Q8HR NEREIDA Rx#:[id number] Oral 1320 Other: Voiding Method Toilet Toilet # Voids 3 1 - Exam Vital signs are stable. Patient is in no acute distress and is alert and oriented 3. Calf is soft and nontender. Surgical wound site is clean and covered with a dressing. There is mild drainage from the surgical site. No significant surrounding erythema. No tenderness to palpation. Neurovascular status intact. Patient has full foot and ankle motion. - Labs CBC & Chem 7: 10/11/16 08:04 10/11/16 08:04 Labs: Abnormal Lab Results - Last 24 Hours (Table) 10/10/16 10/10/16 10/10/16 Range/Units 08:00 08:00 11:23 WBC (3.8-10.6) k/uL RBC (3.80-5.40) m/uL Hgb (11.4-16.0) gm/dL Hct (34.0-46.0) % MCV (80.0-100.0) fL MCH (25.0-35.0) pg MCHC (31.0-37.0) g/dL RDW (11.5-15.5) % Neutrophils # (Manual) 10.0 H (1.3-7.7) k/uL Lymphocytes # (Manual) 0.9 L (1.0-4.8) k/uL Monocytes # (Manual) 1.3 H (0-1.0) k/uL BUN (7-17) mg/dL Glucose (74-99) mg/dL POC Glucose (mg/dL) 168 H (75-99) mg/dL Hemoglobin A1c 6.3 H (4.2-6.1) % Magnesium (1.6-2.3) mg/dL Urine Protein (Negative) 10/10/16 10/10/16 10/10/16 Range/Units 17:29 18:30 21:02 WBC (3.8-10.6) k/uL RBC (3.80-5.40) m/uL Hgb (11.4-16.0) gm/dL Hct (34.0-46.0) % MCV (80.0-100.0) fL MCH (25.0-35.0) pg MCHC (31.0-37.0) g/dL RDW (11.5-15.5) % Neutrophils # (Manual) (1.3-7.7) k/uL Lymphocytes # (Manual) (1.0-4.8) k/uL Monocytes # (Manual) (0-1.0) k/uL BUN (7-17) mg/dL Glucose (74-99) mg/dL POC Glucose (mg/dL) 116 H 147 H (75-99) mg/dL Hemoglobin A1c (4.2-6.1) % Magnesium (1.6-2.3) mg/dL Urine Protein 1+ H (Negative) 10/11/16 10/11/16 10/11/16 Range/Units 07:12 08:04 08:04 WBC 11.4 H (3.8-10.6) k/uL RBC 3.68 L (3.80-5.40) m/uL Hgb 7.9 L (11.4-16.0) gm/dL Hct 29.0 L (34.0-46.0) % MCV 78.8 L (80.0-100.0) fL MCH 21.5 L (25.0-35.0) pg MCHC 27.3 L (31.0-37.0) g/dL RDW 17.1 H (11.5-15.5) % Neutrophils # (Manual) (1.3-7.7) k/uL Lymphocytes # (Manual) (1.0-4.8) k/uL Monocytes # (Manual) (0-1.0) k/uL BUN 35 H (7-17) mg/dL Glucose 107 H (74-99) mg/dL POC Glucose (mg/dL) 129 H (75-99) mg/dL Hemoglobin A1c (4.2-6.1) % Magnesium 1.4 L (1.6-2.3) mg/dL Urine Protein (Negative) Microbiology - Last 24 Hours (Table) 10/09/16 15:02 Gram Stain - Preliminary Knee - Left Wound Culture - Preliminary Presumptive Staph aureus Assessment and Plan (1) Open wound of left knee Status: Acute Plan: #1. Continue antibiotics and wound care per infectious disease. Cultures are still pending. #2. Patient is scheduled for a PICC line on Thursday, per infectious disease. #3. Will continue to follow patient closely.
[2016-10-11 11:10] LABS: Add Differential Manual Differential
[2016-10-11 11:14] LABS: Manual Review Performed; Metamyelocytes % 0.5 %; Nucleated Red Blood Cells 0 /100 WBC (0-0); Total Cells Counted 200
[2016-10-11 11:27] LABS: Glucose,Whole Blood 167 mg/dL (75-99)
[2016-10-11] MEDS: MAGNESIUM SULFATE-D5W PMX 1 GM in DEXTROSE/WATER 1 100ML.BAG IVPB SCH ×2 (12:05→13:11)
[2016-10-11] MEDS: MULTIVITAMINS, THERA 1 EACH TAB PO SCH (12:10)
[2016-10-11 16:58] LABS: Glucose,Whole Blood 82 mg/dL (75-99)
[2016-10-11] MEDS: XARELTO 20 MG PO SCH (17:22)
[2016-10-11] MEDS: HYDROcodone/APAP 5-325MG 1 EACH TAB PO PRN (20:14)
[2016-10-11 20:17] LABS: Glucose,Whole Blood 122 mg/dL (75-99)
--- NOTE | 2016-10-11 22:10 | PN ---
DATE OF SERVICE: 10/11/2016 This 66-year-old woman who was admitted with left knee ulcer, possible posttraumatic, had irrigation and debridement. The cultures are showing presumptive Staph aureus. No chest pain. No palpitations. No fever. Blood sugars have been controlled. On exam, alert and oriented times three. Pulse 81, blood pressure 114/77, respiration 18, temperature 97.4, pulse ox 92% on room air. HEENT: Conjunctivae normal. NECK: No jugular venous distention. CARDIOVASCULAR: S1, S2 muffled. RESPIRATORY: Breath sounds diminished at the bases. A few scattered rhonchi, no crackles. ABDOMEN: Soft, nontender. Legs: Status post surgery on the left knee. CENTRAL NERVOUS SYSTEM: No focal deficits. LABS: WBC 11.2, hemoglobin 7.9. Otherwise magnesium 1.4. ASSESSMENT: 1. Left knee ulcer, possibly posttraumatic, status post irrigation and debridement with presumptive Staph aureus. 2. Diabetes mellitus, type II. 3. Hypomagnesemia. 4. Anemia, normocytic anemia of chronic disease. 5. Increased WBC. 6. Obesity, body mass index 38.5. 7. History of atrial fibrillation, chronic persistent. 8. History of diabetes Type 2. 9. Gastroesophageal reflux disease. 10. History of an appendectomy. 11. Hysterectomy. 12. Remote history of nicotine dependence. 13. FULL CODE. RECOMMENDATIONS AND DISCUSSION: Recommend to continue current medications. Continue with monitoring. Symptomatic treatment. Continue with antibiotics. Await final ID. Monitor the hemoglobin closely. Further recommendations to follow. Blood sugars have been noted.
[2016-10-12] MEDS: LACTATED RINGERS 1,000 ML IV SCH ×2 (00:21→11:47)
[2016-10-12 06:50] LABS: Glucose,Whole Blood 125 mg/dL (75-99)
[2016-10-12] MEDS: METFORMIN 1000 MG PO SCH ×2 (07:30→20:29)
[2016-10-12] MEDS: OMEPRAZOLE 20 MG PO SCH (07:30)
--- NOTE | 2016-10-12 07:54 | P.PN ---
Subjective Principal diagnosis: Open wound of left knee, Status post irrigation and debridement left knee This is a pleasant 66-year-old female status post irrigation and debridement of the left knee. This is postoperative day #2. Patient reports her pain continues to be under control. Patient denies any fever/chills, numbness/ tingling. Patient has no new complaints today. Objective - Vital Signs Vital signs: Vital Signs Temp 97.9 F 10/12/16 07:00 Pulse 93 10/12/16 07:00 Resp 18 10/12/16 07:00 BP 184/82 10/12/16 07:00 Pulse Ox 91 L 10/12/16 07:00 Intake & Output 10/11/16 10/12/16 10/12/16 18:59 06:59 18:59 Intake Total 1400 120 Balance 1400 120 Weight 117.934 kg Intake: Intake, IV Titration 800 Amount Lactated Ringers 1,000 ml 800 @ 20 mls/hr IV .Q24H NEREIDA Rx#:[id number] Oral 600 120 Other: Voiding Method Toilet Toilet # Voids 5 1 - Exam Vital signs are stable. Patient is in no acute distress and is alert and oriented 3. Calf is soft and nontender. Surgical wound site is clean and intact. Dressing was taken down and there is mild drainage from the wound. No significant surrounding erythema. No tenderness to palpation. Neurovascular status intact. Patient has full foot and ankle motion. - Labs CBC & Chem 7: 10/11/16 08:04 10/11/16 08:04 Labs: Abnormal Lab Results - Last 24 Hours (Table) 10/11/16 10/11/16 10/11/16 Range/Units 08:04 08:04 11:25 WBC 11.4 H (3.8-10.6) k/uL RBC 3.68 L (3.80-5.40) m/uL Hgb 7.9 L (11.4-16.0) gm/dL Hct 29.0 L (34.0-46.0) % MCV 78.8 L (80.0-100.0) fL MCH 21.5 L (25.0-35.0) pg MCHC 27.3 L (31.0-37.0) g/dL RDW 17.1 H (11.5-15.5) % Neutrophils # (Manual) 8.9 H (1.3-7.7) k/uL BUN 35 H (7-17) mg/dL Glucose 107 H (74-99) mg/dL POC Glucose (mg/dL) 167 H (75-99) mg/dL Magnesium 1.4 L (1.6-2.3) mg/dL 10/11/16 10/12/16 Range/Units 20:13 06:48 WBC (3.8-10.6) k/uL RBC (3.80-5.40) m/uL Hgb (11.4-16.0) gm/dL Hct (34.0-46.0) % MCV (80.0-100.0) fL MCH (25.0-35.0) pg MCHC (31.0-37.0) g/dL RDW (11.5-15.5) % Neutrophils # (Manual) (1.3-7.7) k/uL BUN (7-17) mg/dL Glucose (74-99) mg/dL POC Glucose (mg/dL) 122 H 125 H (75-99) mg/dL Magnesium (1.6-2.3) mg/dL Microbiology - Last 24 Hours (Table) 10/09/16 15:02 Anaerobic Culture - Preliminary Knee - Left 10/09/16 15:02 Gram Stain - Final Knee - Left Wound Culture - Final Staphylococcus aureus Assessment and Plan (1) Open wound of left knee Status: Acute Plan: #1. Continue antibiotics and wound care per infectious disease. #2. Patient is scheduled for a PICC line on Thursday, per infectious disease. #3. Will continue to follow patient closely.
[2016-10-12] MEDS: INSULIN LISPRO (humaLOG) 300 UNIT/3 ML VIAL SQ SCH ×4 (08:00→23:24)
[2016-10-12] MEDS: FUROSEMIDE 40 MG PO SCH (10:12)
[2016-10-12] MEDS: ATENOLOL 50 MG PO SCH (10:12)
[2016-10-12] MEDS: ASPIRIN 325 MG TAB PO SCH ×2 (10:12→23:24)
[2016-10-12] MEDS: HYDROcodone/APAP 5-325MG 1 EACH TAB PO PRN (10:13)
[2016-10-12] MEDS: ISOSORBIDE MONONITRATE 60 MG PO SCH (10:17)
[2016-10-12] MEDS: SOTALOL 80 MG PO SCH ×2 (10:17→20:29)
[2016-10-12] MEDS: ENALAPRIL 20 MG PO SCH (10:17)
[2016-10-12 11:19] LABS: Glucose,Whole Blood 98 mg/dL (75-99)
[2016-10-12] MEDS: MULTIVITAMINS, THERA 1 EACH TAB PO SCH (11:50)
[2016-10-12] MEDS: XARELTO 20 MG PO SCH (16:59)
[2016-10-12 17:08] LABS: Glucose,Whole Blood 121 mg/dL (75-99)
[2016-10-12] MEDS: MAGNESIUM OXIDE 400 MG TAB PO SCH (17:53)
[2016-10-12 19:56] LABS: Glucose,Whole Blood 163 mg/dL (75-99)
[2016-10-13] MEDS: HYDROcodone/APAP 5-325MG 1 EACH TAB PO PRN ×2 (03:28→20:15)
--- NOTE | 2016-10-13 05:52 | PN ---
DATE OF SERVICE: 10/12/2016 This 66-year-old woman was admitted with left knee ulcer, MSSA grown from the culture. No chest pain or palpitations. No fever. The patient is on broad-spectrum IV antibiotics. Infectious Disease and as well as Orthopedics following the patient. no fever, no cough. On exam, the patient is alert and oriented x3. Pulse is 76. Blood pressure is 129/64, respirations 18, temperature 97.9, pulse ox 94% on room air. HEENT: Conjunctivae normal. NECK: No jugular venous distention. CARDIOVASCULAR: S1 and S2, muffled. RESPIRATORY: Breath sounds diminished at the bases. No rhonchi, no crackles. ABDOMEN: Soft, nontender. LEGS: No edema, no swelling. NERVOUS SYSTEM: No focal deficits. LABS: Magnesium 1.5. Other labs are noted, reviewed. Blood sugars are noted. ASSESSMENT: 1. Left knee ulcer, possibly posttraumatic, status post irrigation debridement with methicillin-susceptible Staphylococcus aureus. 2. Diabetes mellitus type 2. 3. Hypomagnesemia. 4. Anemia, normocytic anemia of chronic disease. 5. Increased WBC. 6. Obesity with body mass index of 38.5. 7. History of atrial fibrillation, chronic, persistent. 8. History of diabetes mellitus type 2. 9. Gastroesophageal reflux disease. 10. History of appendectomy. 11. History of hysterectomy. 12. Remote history of nicotine dependence. 13. FULL CODE. RECOMMENDATIONS AND DISCUSSION: Recommend to continue current medications, continue with monitoring and symptomatic treatment. Otherwise, at this time will monitor the patient closely. Antibiotics. Further recommendations to follow. Closely follow with orthopedics MTDD
[2016-10-13 06:54] LABS: Anisocytosis Slight; Aty Lym Flag Slight; CH 19.6; CHCM 25.5; HCT 27.6 % (34.0-46.0); HDW 3.08; HGB 7.5 gm/dL (11.4-16.0); Hypochromasia Marked; MCH 20.8 pg (25.0-35.0); MCV 77.1 fL (80.0-100.0); Microcytosis Slight; RBC 3.58 m/uL (3.80-5.40); WBC (Perox) 11.24
[2016-10-13 07:12] LABS: Anion Gap 9 mmol/L; Blood Urea Nitrogen 23 mg/dL (7-17); Calcium 8.8 mg/dL (8.4-10.2); Carbon Dioxide 25 mmol/L (22-30); Chloride 105 mmol/L (98-107); Glucose 133 mg/dL (74-99); Magnesium 1.6 mg/dL (1.6-2.3); Non-African American GFR(MDRD) >60 (>60 ml/min/1.73 sqM); Potassium 4.8 mmol/L (3.5-5.1); Sodium 139 mmol/L (137-145)
[2016-10-13 07:23] LABS: Glucose,Whole Blood 156 mg/dL (75-99)
[2016-10-13] MEDS: INSULIN LISPRO (humaLOG) 300 UNIT/3 ML VIAL SQ SCH ×4 (08:24→21:39)
[2016-10-13] MEDS: METFORMIN 1000 MG PO SCH ×2 (08:25→20:16)
[2016-10-13] MEDS: OMEPRAZOLE 20 MG PO SCH (08:25)
[2016-10-13] MEDS: ASPIRIN 325 MG TAB PO SCH ×2 (08:26→21:39)
[2016-10-13] MEDS: SOTALOL 80 MG PO SCH ×2 (08:27→20:16)
[2016-10-13] MEDS: ENALAPRIL 20 MG PO SCH (08:28)
[2016-10-13] MEDS: ATENOLOL 50 MG PO SCH (08:29)
[2016-10-13] MEDS: FUROSEMIDE 40 MG PO SCH (08:29)
[2016-10-13] MEDS: MAGNESIUM OXIDE 400 MG TAB PO SCH (08:29)
[2016-10-13] MEDS: ISOSORBIDE MONONITRATE 60 MG PO SCH (08:30)
--- NOTE | 2016-10-13 09:32 | P.PN ---
Subjective Principal diagnosis: Open wound of left knee, Status post irrigation and debridement left knee This is a pleasant 66-year-old female status post irrigation and debridement of the left knee. This is postoperative day #3. Patient denies any pain to the left lower extremity. Patient denies any fever/chills, numbness/tingling. Patient has no new complaints today. Objective - Vital Signs Vital signs: Vital Signs Temp 96.9 F L 10/13/16 07:00 Pulse 85 10/13/16 07:00 Resp 20 10/13/16 07:00 BP 159/73 10/13/16 07:00 Pulse Ox 98 10/13/16 07:00 Intake & Output 10/12/16 10/13/16 10/13/16 18:59 06:59 18:59 Intake Total 1200 690 Balance 1200 690 Weight 117.934 kg Intake: Intake, IV Titration 600 100 Amount Lactated Ringers 1,000 ml 600 100 @ 20 mls/hr IV .Q24H NEREIDA Rx#:[id number] Oral 600 590 Other: Voiding Method Toilet Toilet Toilet # Voids 5 1 - Exam Vital signs are stable. Patient is in no acute distress and is alert and oriented 3. Calf is soft and nontender. Surgical wound site is clean and intact. Drain intact. Dressing was taken down and there is mild drainage from the wound. No significant surrounding erythema. No tenderness to palpation. Neurovascular status intact. Patient has full foot and ankle motion. - Labs CBC & Chem 7: 10/13/16 06:36 10/13/16 06:36 Labs: Abnormal Lab Results - Last 24 Hours (Table) 10/12/16 10/12/16 10/13/16 Range/Units 17:06 19:55 06:36 WBC 11.0 H (3.8-10.6) k/uL RBC 3.58 L (3.80-5.40) m/uL Hgb 7.5 L (11.4-16.0) gm/dL Hct 27.6 L (34.0-46.0) % MCV 77.1 L (80.0-100.0) fL MCH 20.8 L (25.0-35.0) pg MCHC 27.0 L (31.0-37.0) g/dL RDW 17.0 H (11.5-15.5) % BUN (7-17) mg/dL Glucose (74-99) mg/dL POC Glucose (mg/dL) 121 H 163 H (75-99) mg/dL 10/13/16 10/13/16 Range/Units 06:36 07:18 WBC (3.8-10.6) k/uL RBC (3.80-5.40) m/uL Hgb (11.4-16.0) gm/dL Hct (34.0-46.0) % MCV (80.0-100.0) fL MCH (25.0-35.0) pg MCHC (31.0-37.0) g/dL RDW (11.5-15.5) % BUN 23 H (7-17) mg/dL Glucose 133 H (74-99) mg/dL POC Glucose (mg/dL) 156 H (75-99) mg/dL Assessment and Plan (1) Open wound of left knee Status: Acute Plan: #1. Continue antibiotics and wound care per infectious disease. #2. Patient is scheduled for a PICC line today, per infectious disease. #3. Will continue to follow patient closely. #4. Orthopedically, patient is stable for discharge. Awaiting infectious disease recommendations for outpatient therapy.
[2016-10-13 11:01] LABS: Add Differential Manual Differential
[2016-10-13 11:04] LABS: Nucleated Red Blood Cells 0 /100 WBC (0-0); Total Cells Counted 100
[2016-10-13 12:05] LABS: Glucose,Whole Blood 208 mg/dL (75-99)
[2016-10-13] MEDS ORDERED: LIDOCAINE 2% INJ 20 MG/ML (20 ML MDV) ONE (13:13)
[2016-10-13] MEDS: MULTIVITAMINS, THERA 1 EACH TAB PO SCH (13:22)
[2016-10-13] MEDS: LACTATED RINGERS 1,000 ML IV SCH (13:22)
[2016-10-13] MEDS ORDERED: LIDOCAINE 2% INJ 20 MG/ML SQ ONE (13:32)
--- NOTE | 2016-10-13 14:40 | IR ---
EXAMINATION TYPE: IR cvc insert >=5 years DATE OF EXAM: 10/13/2016 COMPARISON: NONE CLINICAL HISTORY: Infection Needs long-term intravenous access for antibiotics. PROCEDURE: After informed consent, the skin overlying the left basilic vein was localized with ultrasound and no mandie to be compressible and patent. An ultrasound image was obtained and submitted on the patient's c chavez. The overlying skin was prepped and draped and Lidocaine was used for local anesthesia. A skin adrian was made with a scalpel. Access was gained to the vein under ultrasound guidance with a 21 gau ge needle and a 0.018 inch wire was advanced. Access site was dilated with Peel-Away sheath and cath eter tailored to the appropriate length and advanced such that the distal tip is at the cavoatrial ju nction. Spot image was obtained verifying placement. Catheter was fixed to the skin with suture and a sterile dressing was placed following hemostasis. Catheter was aspirated and flushed with saline. Patient was discharged in stable condition without complication. Maximal barrier technique is utili zed. Ultrasound image is documented on the chart. Ultrasound used with sterile technique. Fluoro time and fluoroscopic images submitted to document procedure: 1 intraoperative C-arm image, 1. 4 minutes fluoroscopy time IMPRESSION: STATUS POST ULTRASOUND AND FLUOROSCOPIC GUIDED PICC LINE PLACEMENT, READY FOR USE. THIS PROCEDURE WAS PERFORMED BY THE UNDERSIGNED.
[2016-10-13 17:27] LABS: Glucose,Whole Blood 113 mg/dL (75-99)
[2016-10-13] MEDS: XARELTO 20 MG PO SCH (18:36)
--- NOTE | 2016-10-13 18:36 | PN ---
DATE OF SERVICE: 10/13/2016 This 66-year-old woman was admitted with left knee ulcer, had MSSA grown from the culture. No chest pain, no palpitation. No fever. PICC line has been inserted. On exam, alert and oriented x3. Pulse is 85, blood pressure 159/73, respirations 20, temperature 96.9, pulse ox 98% on room air. HEENT: Conjunctivae normal. NECK: No jugular venous distention. CARDIOVASCULAR: S1 and S2. RESPIRATORY: Breath sounds diminished at the bases. No rhonchi, no crackles. ABDOMEN: Soft, nontender. LEGS: No edema. NERVOUS SYSTEM: No focal deficits. Labs at this time shows WBC 11, hemoglobin 7.5. ASSESSMENT: 1. Left knee arthroplasty, posttraumatic, status post irrigation and debridement with methicillin-resistant Staphylococcus aureus. 2. Diabetes mellitus type 2. 3. Hypomagnesemia. 4. Anemia, normocytic anemia of chronic disease. 5. Increased WBC. 6. Obesity with body mass index of 38.5. 7. History of atrial fibrillation, chronic, persistent. 8. History of diabetes mellitus type 2. 9. History of gastroesophageal reflux disease. 10. History of appendectomy. 11. History of hysterectomy. 12. Remote history of nicotine dependence. 13. FULL CODE. RECOMMENDATIONS AND DISCUSSION: In this 66-year-old woman who presented with multiple complex medical issues, we will monitor the patient closely. Continue the current medications and symptomatic treatment. Otherwise at this time, continue with antibiotics. Closely follow with Orthopedic Surgery. Further recommendations to follow.
[2016-10-13] MEDS: cefTRIAXone 2,000 MG in SODIUM CHLORIDE 0.9% 100 ML IVPB SCH (18:45)
--- NOTE | 2016-10-13 21:13 | P.PN ---
Subjective Principal diagnosis: trauma left knee 66-year-old female with a long-standing history of diabetes mellitus type 2, obesity, and COPD presents to Hospital status post fall more than a month ago. She relates that she was trying to kill [place] that was in the house. She lost her balance or 260 pounds fell directly onto the left knee. She felt like was a rug burn at first. In the following days it became worse. She saw her primary care physician. She was treated locally in the office. She had some local debridements performed in the office also. She then developed marked worsening. She was seen in orthopedics. She has now been admitted recently had a room for the surgical incision and drainage of the site. Possibly a patellar bursa debridement also occurred. She's feeling relatively well postoperative. Pain is well-controlled. She denying fevers, chills or rigors. Other new acute complaints at this time. eeling better today. Case is discussed with the surgeons a deep debridement has occurred and appears to involve the bursa Showing some improvement. Cultures show evidence of MSSA. Working with discharge planners as to best possible antibiotic plan at discharge. Objective - Vital Signs Vital signs: Vital Signs Temp 98.4 F 10/13/16 15:00 Pulse 72 10/13/16 15:00 Resp 20 10/13/16 15:00 BP 145/89 10/13/16 15:00 Pulse Ox 96 10/13/16 15:00 Intake & Output 10/13/16 10/13/16 10/14/16 06:59 18:59 06:59 Intake Total 690 600 Balance 690 600 Intake: Intake, IV Titration 100 Amount Lactated Ringers 1,000 ml 100 @ 20 mls/hr IV .Q24H [facility] Rx#:[id number] Oral 590 600 Other: Voiding Method Toilet Toilet # Voids 1 3 - Exam Obese 66-year-old woman who is comfortable at this time. HEENT: Anicteric conjunctiva are pink and moist nasal mucosa grossly intact without significant lesions, there is no thrush. Neck: The neck is supple without significant lymphadenopathy or thyromegaly. Lungs: Symmetrical air entry. Expiratory wheezes are scattered in the lung hernandez but no jesus bronchial sounds are heard. No dullness or egophony is noted. Heart: Regular rate and rhythm with an audible S1-S2, no S3 no S4. There is no significant murmur click or rub, PMI was nondisplaced. Abdomen: Obese, Positive bowel sounds soft and nontender without palpable masses or organomegaly. There was no guarding or rebound. Extremities: The upper extremities have excellent pulses they are symmetric, no significant petechiae or telangiectasia. No splinter hemorrhages were noted. T the right lower extremity reveals no acute injuries or lesions. The left lower extremity reveals evidence the recent surgical intervention The surgical ulceration is noted. Measuring at 3.2 x 5.1 x 0.7 cm. There is some undermining at the 6 o'clock position of about a centimeter. There is still good amount of slough at the base the wound. Drainage is still in place. This is minimally tender. . No ascending lymphangitis. No lymphadenopathy to the left groin. No other abnormal lymph nodes are noted. PICC line left arm without difficulty Neuro: Awake alert oriented to person place and time. There are no acute new gross focal sensory motor deficits. - Labs CBC & Chem 7: 10/13/16 06:36 10/13/16 06:36 Labs: Abnormal Lab Results - Last 24 Hours (Table) 10/13/16 10/13/16 10/13/16 Range/Units 06:36 06:36 07:18 WBC 11.0 H (3.8-10.6) k/uL RBC 3.58 L (3.80-5.40) m/uL Hgb 7.5 L (11.4-16.0) gm/dL Hct 27.6 L (34.0-46.0) % MCV 77.1 L (80.0-100.0) fL MCH 20.8 L (25.0-35.0) pg MCHC 27.0 L (31.0-37.0) g/dL RDW 17.0 H (11.5-15.5) % Neutrophils # (Manual) 9.1 H (1.3-7.7) k/uL BUN 23 H (7-17) mg/dL Glucose 133 H (74-99) mg/dL POC Glucose (mg/dL) 156 H (75-99) mg/dL 10/13/16 10/13/16 Range/Units 11:45 17:24 WBC (3.8-10.6) k/uL RBC (3.80-5.40) m/uL Hgb (11.4-16.0) gm/dL Hct (34.0-46.0) % MCV (80.0-100.0) fL MCH (25.0-35.0) pg MCHC (31.0-37.0) g/dL RDW (11.5-15.5) % Neutrophils # (Manual) (1.3-7.7) k/uL BUN (7-17) mg/dL Glucose (74-99) mg/dL POC Glucose (mg/dL) 208 H 113 H (75-99) mg/dL Laboratory Results WBC 11.0 k/uL (3.8-10.6) H 10/13/16 06:36 RBC 3.58 m/uL (3.80-5.40) L 10/13/16 06:36 Hgb 7.5 gm/dL (11.4-16.0) L 10/13/16 06:36 Hct 27.6 % (34.0-46.0) L 10/13/16 06:36 MCV 77.1 fL (80.0-100.0) L 10/13/16 06:36 MCH 20.8 pg (25.0-35.0) L 10/13/16 06:36 MCHC 27.0 g/dL (31.0-37.0) L 10/13/16 06:36 RDW 17.0 % (11.5-15.5) H 10/13/16 06:36 Plt Count 295 k/uL (150-450) 10/13/16 06:36 Neutrophils % (Manual) 83.0 % 10/13/16 06:36 Lymphocytes % (Manual) 9.0 % 10/13/16 06:36 Monocytes % (Manual) 8.0 % 10/13/16 06:36 Metamyelocytes % 0.5 % 10/11/16 08:04 Neutrophils # (Manual) 9.1 k/uL (1.3-7.7) H 10/13/16 06:36 Lymphocytes # (Manual) 1.0 k/uL (1.0-4.8) 10/13/16 06:36 Monocytes # (Manual) 0.9 k/uL (0-1.0) 10/13/16 06:36 Nucleated RBCs 0 /100 WBC (0-0) 10/13/16 06:36 Manual Slide Review Performed 10/11/16 08:04 Toxic Granulation Present 10/09/16 13:10 Hypochromasia Marked 10/13/16 06:36 Poikilocytosis (manual Present 10/13/16 06:36 Anisocytosis Slight 10/13/16 06:36 Microcytosis Slight 10/13/16 06:36 ESR 14 mm/hr (0-20) 10/09/16 13:10 PT 12.2 sec (9.0-12.0) H 10/09/16 13:10 INR 1.2 (<1.1) 10/09/16 13:10 Sodium 139 mmol/L (137-145) 10/13/16 06:36 Potassium 4.8 mmol/L (3.5-5.1) 10/13/16 06:36 Chloride 105 mmol/L (98-107) 10/13/16 06:36 Carbon Dioxide 25 mmol/L (22-30) 10/13/16 06:36 Anion Gap 9 mmol/L 10/13/16 06:36 BUN 23 mg/dL (7-17) H 10/13/16 06:36 Creatinine 0.73 mg/dL (0.52-1.04) 10/13/16 06:36 Est GFR (MDRD) Af Amer >60 (>60 ml/min/1.73 sqM) 10/13/16 06:36 Est GFR (MDRD) Non-Af >60 (>60 ml/min/1.73 sqM) 10/13/16 06:36 Glucose 133 mg/dL (74-99) H 10/13/16 06:36 POC Glucose (mg/dL) 113 mg/dL (75-99) H 10/13/16 17:24 POC Glu Health Safety Instructor ID Lj Ware 10/13/16 17:[address] Glu mg/dL 134 mg/dL 10/10/16 08:00 Hemoglobin A1c 6.3 % (4.2-6.1) H 10/10/16 08:00 Calcium 8.8 mg/dL (8.4-10.2) 10/13/16 06:36 Magnesium 1.6 mg/dL (1.6-2.3) 10/13/16 06:36 C-Reactive Protein 8.1 mg/L (<10.0) 10/09/16 13:10 Urine Color Yellow 10/10/16 18:30 Urine Appearance Clear (Clear) 10/10/16 18:30 Urine pH 5.5 (5.0-8.0) 10/10/16 18:30 Ur Specific [place] 1.025 (1.001-1.035) 10/10/16 18:30 Urine Protein 1+ (Negative) H 10/10/16 18:30 Urine Glucose (UA) Negative (Negative) 10/10/16 18:30 Urine Ketones Negative (Negative) 10/10/16 18:30 Urine Blood Negative (Negative) 10/10/16 18:30 Urine Nitrite Negative (Negative) 10/10/16 18:30 Urine Bilirubin Negative (Negative) 10/10/16 18:30 Urine Urobilinogen <2.0 mg/dL (<2.0) 10/10/16 18:30 Ur Leukocyte Esterase Negative (Negative) 10/10/16 18:30 Urine RBC 1 /hpf (0-5) 10/10/16 18:30 Urine WBC 1 /hpf (0-5) 10/10/16 18:30 Ur Squamous Epith Cells 1 /hpf (0-4) 10/10/16 18:30 Hyaline Casts 1 /lpf (0-2) 10/10/16 18:30 Microbiology 10/09/16 15:02 Knee - Left Anaerobic Culture - Preliminary 10/09/16 15:02 Knee - Left Gram Stain - Final 10/09/16 15:02 Knee - Left Wound Culture - Final Staphylococcus aureus Assessment and Plan (1) Ulcer of left knee Narrative/Plan: 66-year-old female with a history of obesity, diabetes mellitus type 2 poorly controlled and COPD presents to Hospital for evaluation and surgical incision and drainage of her left knee. Suffered a fall approximately a month ago was been having a nonhealing ulceration since. Appears to possibly had a bursal involvement. Now status post incision and drainage. Dressings intact at this time. As noted culture reveals MSSA No notation from the out patient evaluations of MRSA. We'll continue cefazolin and and high dose given her obesity and normal renal function. Local wound care will be opticell silver and once infection is improved then wound vac can be used. Working with discharge planners for her outpatient intravenous antibiotic therapy with Rocephin for the isolated MSSA Working with discharge planners also for negative pressure therapy system application at home. Follow-up with the wound center after discharge. Status: Acute (2) Traumatic ecchymosis of left knee Status: Acute (3) Diabetes mellitus type 2 in obese Status: Acute (4) Anemia Status: Acute
[2016-10-13 21:15] LABS: Glucose,Whole Blood 129 mg/dL (75-99)
[2016-10-13] MEDS: SOTALOL 80 MG TAB PO SCH (22:24)
[2016-10-14 07:35] LABS: Glucose,Whole Blood 94 mg/dL (75-99)
[2016-10-14] MEDS: INSULIN LISPRO (humaLOG) 300 UNIT/3 ML VIAL SQ SCH ×2 (09:06→13:39)
[2016-10-14] MEDS: METFORMIN 1000 MG PO SCH (09:06)
[2016-10-14] MEDS: ATENOLOL 50 MG PO SCH (09:07)
[2016-10-14] MEDS: ASPIRIN 325 MG TAB PO SCH (09:07)
[2016-10-14] MEDS: OMEPRAZOLE 20 MG PO SCH (09:07)
[2016-10-14] MEDS: FUROSEMIDE 40 MG PO SCH (09:08)
[2016-10-14] MEDS: ISOSORBIDE MONONITRATE 60 MG PO SCH (09:10)
[2016-10-14] MEDS: ENALAPRIL 20 MG PO SCH (09:16)
[2016-10-14] MEDS: MAGNESIUM OXIDE 400 MG TAB PO SCH (09:24)
[2016-10-14] MEDS: SOTALOL 80 MG TAB PO SCH (09:24)
[2016-10-14] MEDS: MULTIVITAMINS, THERA 1 EACH TAB PO SCH (09:24)
--- NOTE | 2016-10-14 09:27 | P.DS ---
Providers Date of admission: 10/09/16 11:59 Expected date of discharge: 10/14/16 Attending physician: Scott Lopez Consults: 10/09/16 15:35 Consult Physician Routine Consulting Provider: Arun Cortés Consult Reason/Comments: left knee infection Do you want consulting provider notified?: Yes Primary care physician: Sara Reilly - Discharge Diagnosis(es) (1) Open wound of left knee Current Visit: Yes Status: Acute Hospital Course: This is a 66-year-old female with known history of a fall about one month ago. Patient was having issues with pain and swelling in the left knee ever since this fall. Patient tried several attempts at outpatient treatment without success.. The patient presents for orthopedic evaluation. After discussion and consideration patient elects to proceed with surgical irrigation and debridement of the left knee. The patient is seen preoperatively by Dr. Lopez and cleared for surgery. Patient is admitted to [facility] on 10/09/2016 for irrigation and debridement of the left knee. The procedures performed without complication or sequelae. The patient is doing well postoperatively. Labs and vital signs are stable on day of discharge. On day of discharge patient's surgical wound is clean and intact. There is minimal erythema. There is mild drainage. There is no tenderness to palpation of the left knee. Calf is soft and nontender. Patient has full foot and ankle motion without difficulty or pain. Neurovascular status to the left lower extremity is intact. Patient is discharged home in good condition with a PICC line and outpatient IV antibiotics per infectious disease recommendations. Please see med rec for accurate list of home medications. Plan - Discharge Summary New Discharge Prescriptions: New HYDROcodone/APAP 5-325MG [Canones 5-325] 1 - 2 tab PO Q4-6H PRN #60 tab PRN Reason: Pain Sennosides-Docusate Sodium [Senokot-S] 1 tab PO BID #60 tablet cefTRIAXone [Rocephin] 2,000 mg IVPB Q24HR #21 vial No Action Omeprazole [PriLOSEC] 20 mg PO AC-BRKFST Isosorbide Mononitrate ER [Imdur] 60 mg PO DAILY Aspirin 325 mg PO DAILY Multivitamins, Thera [Multivitamin] 1 tab PO DAILY Sotalol [Betapace] 80 mg PO BID Rivaroxaban [Xarelto] 20 mg PO DAILY Furosemide [Lasix] 40 mg PO DAILY Enalapril [Vasotec] 20 mg PO DAILY Atenolol [Tenormin] 50 mg PO DAILY metFORMIN HCL 1,000 mg PO BID Discharge Medication List Aspirin 325 mg PO DAILY 06/17/16 [History] Atenolol [Tenormin] 50 mg PO DAILY 06/17/16 [History] Enalapril [Vasotec] 20 mg PO DAILY 06/17/16 [History] Furosemide [Lasix] 40 mg PO DAILY 06/17/16 [History] Isosorbide Mononitrate ER [Imdur] 60 mg PO DAILY 06/17/16 [History] Multivitamins, Thera [Multivitamin] 1 tab PO DAILY 06/17/16 [History] Omeprazole [PriLOSEC] 20 mg PO AC-BRKFST 06/17/16 [History] Rivaroxaban [Xarelto] 20 mg PO DAILY 06/17/16 [History] Sotalol [Betapace] 80 mg PO BID 06/17/16 [History] metFORMIN HCL 1,000 mg PO BID 06/17/16 [History] HYDROcodone/APAP 5-325MG [Canones 5-325] 1 - 2 tab PO Q4-6H PRN #60 tab 10/13/16 [ Rx] Sennosides-Docusate Sodium [Senokot-S] 1 tab PO BID #60 tablet 10/13/16 [Rx] cefTRIAXone [Rocephin] 2,000 mg IVPB Q24HR #21 vial 10/13/16 [Rx] Follow up Appointment(s)/Referral(s): Scott Lopez DO [Doctor of Osteopathic Medicine] - 10 Days
[2016-10-14 12:07] LABS: Glucose,Whole Blood 249 mg/dL (75-99)
[2016-10-14] MEDS: LACTATED RINGERS 1,000 ML IV SCH (13:39)
[2016-10-14 15:03] VITALS: BP 184/84; PULSE 79; RESP 18; TEMP 98.3
[2016-10-14] MEDS: cefTRIAXone 2,000 MG in SODIUM CHLORIDE 0.9% 100 ML IVPB SCH (15:38)
--- NOTE | 2016-10-14 23:18 | P.PN ---
Subjective Principal diagnosis: trauma left knee 66-year-old female with a long-standing history of diabetes mellitus type 2, obesity, and COPD presents to Hospital status post fall more than a month ago. She relates that she was trying to kill [place] that was in the house. She lost her balance or 260 pounds fell directly onto the left knee. She felt like was a rug burn at first. In the following days it became worse. She saw her primary care physician. She was treated locally in the office. She had some local debridements performed in the office also. She then developed marked worsening. She was seen in orthopedics. She has now been admitted recently had a room for the surgical incision and drainage of the site. Possibly a patellar bursa debridement also occurred. She's feeling relatively well postoperative. Pain is well-controlled. She denying fevers, chills or rigors. Other new acute complaints at this time. eeling better today. Case is discussed with the surgeons a deep debridement has occurred and appears to involve the bursa Showing some improvement. Cultures show evidence of MSSA. Working with discharge planners as to best possible antibiotic plan at discharge. Objective - Vital Signs Vital signs: Vital Signs Temp 98.3 F 10/14/16 15:00 Pulse 79 10/14/16 15:00 Resp 18 10/14/16 15:00 BP 184/84 10/14/16 15:00 Pulse Ox 93 L 10/14/16 15:00 Intake & Output 10/14/16 10/14/16 10/15/16 06:59 18:59 06:59 Intake Total 480 100 Balance 480 100 Intake: IV 100 0.9 100 Oral 480 Other: Voiding Method Toilet Toilet # Voids 2 3 - Exam Obese 66-year-old woman who is comfortable at this time. HEENT: Anicteric conjunctiva are pink and moist nasal mucosa grossly intact without significant lesions, there is no thrush. Neck: The neck is supple without significant lymphadenopathy or thyromegaly. Lungs: Symmetrical air entry. Expiratory wheezes are scattered in the lung hernandez but no jesus bronchial sounds are heard. No dullness or egophony is noted. Heart: Regular rate and rhythm with an audible S1-S2, no S3 no S4. There is no significant murmur click or rub, PMI was nondisplaced. Abdomen: Obese, Positive bowel sounds soft and nontender without palpable masses or organomegaly. There was no guarding or rebound. Extremities: The upper extremities have excellent pulses they are symmetric, no significant petechiae or telangiectasia. No splinter hemorrhages were noted. T the right lower extremity reveals no acute injuries or lesions. The left lower extremity reveals evidence the recent surgical intervention The surgical ulceration is noted. Measuring at 3.2 x 5.1 x 0.7 cm. There is some undermining at the 6 o'clock position of about a centimeter. There is still good amount of slough at the base the wound. Drainage is still in place. This is minimally tender. . No ascending lymphangitis. No lymphadenopathy to the left groin. No other abnormal lymph nodes are noted. PICC line left arm without difficulty Neuro: Awake alert oriented to person place and time. There are no acute new gross focal sensory motor deficits. - Labs CBC & Chem 7: 10/13/16 06:36 10/13/16 06:36 Labs: Abnormal Lab Results - Last 24 Hours (Table) 10/14/16 Range/Units 11:54 POC Glucose (mg/dL) 249 H (75-99) mg/dL Microbiology - Last 24 Hours (Table) 10/09/16 15:02 Anaerobic Culture - Final Knee - Left Assessment and Plan (1) Ulcer of left knee Narrative/Plan: 66-year-old female with a history of obesity, diabetes mellitus type 2 poorly controlled and COPD presents to Hospital for evaluation and surgical incision and drainage of her left knee. Suffered a fall approximately a month ago was been having a nonhealing ulceration since. Appears to possibly had a bursal involvement. Now status post incision and drainage. Dressings intact at this time. As noted culture reveals MSSA No notation from the out patient evaluations of MRSA. We'll continue cefazolin and and high dose given her obesity and normal renal function. Local wound care will be opticell silver and once infection is improved then wound vac can be used. Working with discharge planners for her outpatient intravenous antibiotic therapy with Rocephin for the isolated MSSA Working with discharge planners also for negative pressure therapy system application at home. Follow-up with the wound center after discharge. Status: Acute (2) Traumatic ecchymosis of left knee Status: Acute (3) Diabetes mellitus type 2 in obese Status: Acute (4) Anemia Status: Acute
--- NOTE | 2016-10-16 07:54 | PN ---
DATE OF SERVICE: 10/14/2016 This 66-year-old woman who was admitted with a left knee arthroplasty also had MSSA growing from the cultures. No chest pain or palpitations. No fever. On exam, alert and oriented x3. Pulse is 77, blood pressure 158/74, respirations 16, temperature 97.7, pulse ox 94% on room air. HEENT: Conjunctivae normal. NECK: No jugular venous distention. CARDIOVASCULAR: S1 and S2 muffled. RESPIRATORY: Breath sounds diminished at the bases. No rhonchi, no crackles. ABDOMEN: Soft, obese, nontender. LEGS: Status post left knee arthroplasty. NEVOUS SYSTEM: No focal deficits. LABS: WBC 11, hemoglobin 7.5. ASSESSMENT: 1. Left knee ulcer, posttraumatic, status post irrigation and debridement with MSSA. 2. Diabetes mellitus type 2. 3. Hypomagnesemia. 4. Anemia, normocytic anemia of chronic disease. 5. Increased WBC. 6. Obesity with body mass index of 38.5. 7. History of atrial fibrillation, chronic persistent. 8. History of diabetes mellitus type 2. 9. History of gastroesophageal reflux disease. 10. History of appendectomy. 11. History of hysterectomy. 12. Remote history of nicotine dependence. RECOMMENDATIONS AND DISCUSSION: Recommend to continue current medications. Continues with symptomatic treatment. Continue with IV antibiotics, PICC line. Continue the home medications. Closely follow with the primary physician. Further recommendations per ID and as well as orthopedic surgery. Further recommendations to follow. MTDD
--- NOTE | 2016-10-16 14:30 | CDI ---
In responding to this query, please exercise your independent professional judgment. The [facility] Coding Staff and Clinical Documentation Specialists appreciate your assistance in clarifying documentation, maintaining compliance with coding guidelines, accurately documenting patients condition and capturing severity of illness. The fact that a question is asked does not imply that any particular answer is desired or expected. Communication forms are a method of clarifying documentation and are not made part of the Legal Health Record. Thank you in advance for your clarification. Last Revision, February 2015 Srikanth Lujan [address] [facility] [place] [address] Documentation Clarification Form Date: 10/16/2016 2:22:00 PM From: Vita Lee Admit Date: 10/09/2016 11:59:00 AM Patient Name: Joy Mehta Visit Number: [id number] Discharge Date: 10/14/16 Dr. Scott Lopez Per your operative note, a debridement was performed on the left knee. History/Risk Factors: COPD, DM, persistent A fib Clinical Indicators: nonhealing open wound of left knee Treatment: surgical debridement Five elements required for accurate and compliant documentation of a debridement : 1. Technique used (e.g., excisional, excised, cutting, etc.) 2. Instrument(s) used (e.g., scalpel, curette, etc.) 3. Nature of the tissue removed (e.g., necrotic, devitalized tissues, non- viable tissue, etc.) 4. Appearance and size of the wound (e.g., down to fresh bleeding tissue, 7cm x 10cm, etc.) 5. Depth of the debridement* (e.g., skin, subcutaneous tissue, fascia, muscle , bone, etc.) In order to capture the severity of condition and code the appropriate procedure could you please document the following, in addition the depth: Excisional debridement (the removal of necrotic, devitalized tissue or slough by means of cutting away of tissue) Non-excisional debridement (the removal of necrotic, devitalized tissue or slough by means of flushing, brushing, or washing. (Irrigation) Other; with explanation for clinical findings Unable to determine (no explanation for clinical findings) Please document in your operative report in order to capture severity of illness and risk of mortality. Include clinical findings that support your diagnosis. FYI: Press F11 to launch patient chart. Place X here if this finding has no clinical significance, is not applicable or if you are not able to provide any additional documentation. MARISA Mckeon, [facility], [facility] Certified I-10 Cover Remover/[place]/Cover Remover II If you have any questions or concerns please contact Michelle Silver, Procedures Analyst, Srikanth Lujan @ [phone] [facility]
== END 2016-10-14 17:33 | disposition home health service (06) | DRG 571 ==
LOC: 2ORMAIN 11:59 → 5MS5E 15:20
PROVIDERS: ADMIT Orthopaedic Surgery; ATTEND Orthopaedic Surgery
PROC: 0JBP0ZZ Excision of Left Lower Leg Subcutaneous Tissue and Fascia, Open Approach (ICD-10-PCS; 2016-10-09)
PROC: 02HV33Z Insertion of Infusion Device into Superior Vena Cava, Percutaneous Approach (ICD-10-PCS; principal; 2016-10-13 13:15)
PROC: B548ZZA Ultrasonography of Superior Vena Cava, Guidance (ICD-10-PCS; 2016-10-13 13:15)
DX: S81.002A Unspecified open wound, left knee, initial encounter (principal); I48.1 Persistent atrial fibrillation; I48.2 Chronic atrial fibrillation; E83.42 Hypomagnesemia; J44.9 Chronic obstructive pulmonary disease, unspecified; L08.9 Local infection of the skin and subcutaneous tissue, unspecified; B95.61 Methicillin susceptible Staphylococcus aureus infection as the cause of diseases classified elsewhere; E11.9 Type 2 diabetes mellitus without complications; K21.9 Gastro-esophageal reflux disease without esophagitis; E66.9 Obesity, unspecified; D63.8 Anemia in other chronic diseases classified elsewhere; Z68.38 Body mass index [BMI] 38.0-38.9, adult; Z79.01 Long term (current) use of anticoagulants; Z79.84 Long term (current) use of oral hypoglycemic drugs; Z79.4 Long term (current) use of insulin; Z79.82 Long term (current) use of aspirin; Z79.899 Other long term (current) drug therapy; Z90.710 Acquired absence of both cervix and uterus; Z90.49 Acquired absence of other specified parts of digestive tract; Z87.891 Personal history of nicotine dependence; Z96.652 Presence of left artificial knee joint; W01.0XXA Fall on same level from slipping, tripping and stumbling without subsequent striking against object, initial encounter
CPT/HCPCS: 36569; 76937; 77001; 80048; 80051; 81001; 82565; 82947; 83036; 83735; 84520; 85025; 85610; 85652; 86140; 87070; 87075; 87077; 87186; 87205; 93005

== ENCOUNTER 2017-04-22 19:53 | Inpatient (IN) | payer MEDICARE ==
[2017-04-22 20:33] LABS: Glucose,Whole Blood 177 mg/dL (75-99)
[2017-04-22] MEDS ORDERED: HYDROcodone/APAP 5-325MG 1 EACH TAB PO STA (21:13)
[2017-04-22 21:27] LABS: Anisocytosis Moderate; Basophils % (A) 0 %; Eosinophils % (A) 0 %; HCT 34.3 % (34.0-46.0); HGB 9.3 gm/dL (11.4-16.0); Hypochromasia Marked; Lymphocytes # (A) 2.3 k/uL (1.0-4.8); Lymphocytes % (A) 17 %; MCH 21.3 pg (25.0-35.0); MCHC 27.1 g/dL (31.0-37.0); MCV 78.8 fL (80.0-100.0); Mean Platelet Volume 7.8; Microcytosis Moderate; Monocytes # (A) 0.6 k/uL (0-1.0); Monocytes % (A) 5 %; Neutrophils # (A) 10.2 k/uL (1.3-7.7); Neutrophils % (A) 75 %; Platelet Count 161 k/uL (150-450); RBC 4.36 m/uL (3.80-5.40); RDW 22.4 % (11.5-15.5); WBC 13.6 k/uL (3.8-10.6)
[2017-04-22] MEDS: SODIUM CHLORIDE 0.9% 1,000 ML IV SCH (21:29)
[2017-04-22 21:37] LABS: ALT 30 U/L (9-52); AST 40 U/L (14-36); Albumin 3.3 g/dL (3.5-5.0); Alkaline Phosphatase 67 U/L (38-126); Anion Gap 13 mmol/L; Blood Urea Nitrogen 38 mg/dL (7-17); Calcium 8.9 mg/dL (8.4-10.2); Carbon Dioxide 23 mmol/L (22-30); Chloride 100 mmol/L (98-107); Glucose 167 mg/dL (74-99); Potassium 5.6 mmol/L (3.5-5.1); Sodium 136 mmol/L (137-145); Total Bilirubin 0.6 mg/dL (0.2-1.3); Total Protein 6.1 g/dL (6.3-8.2)
[2017-04-22] MEDS ORDERED: AMPICILLIN-SULBACTAM 3 GM in SODIUM CHLORIDE 0.9% 100 ML IVPB STA (23:17)
[2017-04-22] MEDS ORDERED: NALOXONE 0.4 MG/ML 1 ML VIAL IV PRN (23:18)
--- NOTE | 2017-04-22 23:18 | ED ---
General Adult HPI - General Chief complaint: Skin/Abscess/Foreign Body Stated complaint: CELLULITIS Time Seen by Provider: 04/22/17 20:16 Source: patient, EMS, RN notes reviewed, old records reviewed Mode of arrival: EMS Limitations: no limitations - History of Present Illness Initial comments: Chief complaint and history of present illness a 67-year-old female who is living in a nursing facility. She's been there because of chronic inflammation and infectioncellulitis to both lower extremities. She was seen by her family attending who sent her in for further evaluation and rehospitalization with IV antibiotics. - Related Data Home Medications Medication Instructions Recorded Confirmed Aspirin 325 mg PO HS 06/17/16 04/22/17 Multivitamins, Thera [Multivitamin 1 tab PO HS 06/17/16 04/22/17 (formulary)] Omeprazole [PriLOSEC] 20 mg PO AC-BRKFST 06/17/16 04/22/17 Rivaroxaban [Xarelto] 20 mg PO DAILY 06/17/16 04/22/17 metFORMIN HCL 1,000 mg PO BID 06/17/16 04/22/17 Ascorbic Acid [Vitamin C] 500 mg PO HS 03/15/17 04/22/17 Budesonide/Formoterol Fumarate 2 puff INHALATION RT-BID 03/15/17 04/22/17 [Symbicort 160-4.5 Mcg Inhaler] Acetaminophen Tab [Tylenol Tab] 650 mg PO Q4H PRN 04/22/17 04/22/17 Albuterol Nebulized [Ventolin 2.5 mg INHALATION RT-Q6H PRN 04/22/17 04/22/17 Nebulized] Atorvastatin [Lipitor] 10 mg PO HS@199904/22/17 04/22/17 Dexamethasone [Hexadrol] 4 mg PO DAILY 04/22/17 04/22/17 Furosemide [Lasix] 20 mg PO DAILY 04/22/17 04/22/17 HYDROcodone/APAP 10-325MG [[place] 1 tab PO Q4H PRN 04/22/17 04/22/17 10-325] INSULIN LISPRO (HumaLOG) [humaLOG] 10 unit SQ AC-TID 04/22/17 04/22/17 INSULIN LISPRO (humaLOG) [humaLOG] See Protocol SQ AC-TID PRN 04/22/17 04/22/17 Insulin Detemir [Levemir] 35 unit SQ HS 04/22/17 04/22/17 Metoprolol Tartrate [Lopressor] 50 mg PO BID 04/22/17 04/22/17 Previous Rx's Medication Instructions Recorded Bisacodyl [Dulcolax] 10 mg RECTAL DAILY PRN supp 03/27/17 Gabapentin [Neurontin] 200 mg PO BID cap 03/27/17 Allergies Allergy/AdvReac Type Severity Reaction Status Date / Time bee venom protein (honey bee) Allergy Swelling Verified 04/22/17 20:24 Review of Systems ROS Statement: Those systems with pertinent positive or pertinent negative responses have been documented in the HPI. review of systems. Patient denies any visual acuity changes no headache no chest pain or shortness of breath denies abdominal pain. Appetite is good. She complains of burning and pain to both lower extremities ongoing and getting progressively worse of late. All systems were reviewed. Past medical problems significant for chronic A. fib, insulin-dependent diabetes mellitus and GERD. Her surgeries include hysterectomy, appendectomy, tonsillectomy and cardioversion. The patientQuit smoking years ago denies alcohol use at this time. Family history noncontributory. ROS Other: All systems not noted in ROS Statement are negative. Past Medical History Past Medical History: Atrial Fibrillation, Diabetes Mellitus, GERD/Reflux History of Any Multi-Drug Resistant Organisms: None Reported Past Surgical History: Appendectomy, Hysterectomy, Orthopedic Surgery, Tonsillectomy Additional Past Surgical History / Comment(s): cardioversion, arthroscopy lt knee, SEPTEMBER 2016 -cleaned left knee and left drain tube in Past Anesthesia/Blood Transfusion Reactions: No Reported Reaction Past Psychological History: No Psychological Hx Reported Smoking Status: Former smoker - Past Family History Mother Family Medical History: No Reported History General Exam - General Exam Comments Initial Comments: General: The patient is awake and alert,here because of this recurrent cellulitis both lower extremities with open lesions. Vital signs show temperature 97.0 pulse 107 story rate 20 pulse ox 95% on room air blood pressure 180/81. Eye: Pupils are equal, round and reactive to light, extra-ocular movements are intact ; there is normal conjunctiva bilaterally. No signs of icterus. Ears, nose, mouth and throat: There are moist mucous membranes and no oral lesions. Neck: The neck is supple, there is no tenderness . Cardiovascular: history of A. fib, irregular rate and rhythm.. No murmur, rub or gallop is appreciated. Respiratory: Lungs are clear to auscultation, respirations are non-labored, breath sounds are equal. No wheezes, stridor, rales, or rhonchi. Gastrointestinal: Soft, non-distended, non-tender abdomen without masses or organomegaly noted. There is no rebound or guarding present. No CVA tenderness. Bowel sounds are unremarkable.morbidly obese, 113 kg Back: denies any back pain. Unable to examine at this time. Musculoskeletal: upper extremities normal full range of motion. Patient reports she is able to ambulate. Examination of the lower extremity shows cellulitis to both lower extremities from her toes to her mid calf bilaterally. With open ulcers. She reports while at the care home these legs have been wrapped. She describes it as painful and tingly. Neurological: no complaint of any focal or lateralizing findings. Skin: ulcers and skin breakdown noted on the lower extremities. Limitations: no limitations Course Vital Signs 04/22/17 04/22/17 04/22/17 19:59 21:01 23:00 Temperature 97 F L Pulse Rate 107 H 107 H 107 H Respiratory 20 18 20 Rate Blood Pressure 180/81 155/70 157/71 O2 Sat by Pulse 95 97 97 Oximetry Medical Decision Making - Medical Decision Making medical decision making; the patient's here because of recurrent and chronic cellulitis with ulcers on both lower extremities. Sent in by her family doctor for admission. Labs show white count of 13.6 hemoglobin 9 hematocrit 34, potassium 5.6 BUN 38 creatinine 0.84 with a GFR greater than 60. Glucose 167. Cultures of the wound been taken and are pending. - Lab Data Result diagrams: 04/22/17 21:14 04/22/17 21:14 Lab Results 04/22/17 04/22/17 04/22/17 Range/Units 20:13 21:14 21:14 WBC 13.6 H (3.8-10.6) k/uL RBC 4.36 (3.80-5.40) m/uL Hgb 9.3 L (11.4-16.0) gm/dL Hct 34.3 (34.0-46.0) % MCV 78.8 L (80.0-100.0) fL MCH 21.3 L (25.0-35.0) pg MCHC 27.1 L (31.0-37.0) g/dL RDW 22.4 H (11.5-15.5) % Plt Count 161 (150-450) k/uL Neutrophils % 75 % Lymphocytes % 17 % Monocytes % 5 % Eosinophils % 0 % Basophils % 0 % Neutrophils # 10.2 H (1.3-7.7) k/uL Lymphocytes # 2.3 (1.0-4.8) k/uL Monocytes # 0.6 (0-1.0) k/uL Eosinophils # 0.0 (0-0.7) k/uL Basophils # 0.0 (0-0.2) k/uL Hypochromasia Marked Anisocytosis Moderate Microcytosis Moderate Sodium 136 L (137-145) mmol/L Potassium 5.6 H (3.5-5.1) mmol/L Chloride 100 (98-107) mmol/L Carbon Dioxide 23 (22-30) mmol/L Anion Gap 13 mmol/L BUN 38 H (7-17) mg/dL Creatinine 0.84 (0.52-1.04) mg/dL Est GFR (MDRD) Af Amer >60 (>60 ml/min/1.73 sqM) Est GFR (MDRD) Non-Af >60 (>60 ml/min/1.73 sqM) Glucose 167 H (74-99) mg/dL POC Glucose (mg/dL) 177 H (75-99) mg/dL POC Glu Attending Physician ID Emilie Bernabe Calcium 8.9 (8.4-10.2) mg/dL Total Bilirubin 0.6 (0.2-1.3) mg/dL AST 40 H (14-36) U/L ALT 30 (9-52) U/L Alkaline Phosphatase 67 (38-126) U/L Total Protein 6.1 L (6.3-8.2) g/dL Albumin 3.3 L (3.5-5.0) g/dL Disposition Clinical Impression: Cellulitis of both lower extremities Disposition: ADMITTED IP TO THIS HOSP Condition: Fair Referrals: Sara Reilly MD [Primary Care Provider] - 1-2 days
[2017-04-22] MEDS ORDERED: BISACODYL 10 MG SUPP RECTAL PRN (23:21)
[2017-04-22] MEDS ORDERED: ACETAMINOPHEN TAB 325 MG TAB PO PRN (23:21)
[2017-04-22] MEDS ORDERED: ALBUTEROL NEBULIZED 2.5 MG/3 ML INHALATION PRN (23:21)
[2017-04-23] MEDS: HYDROcodone/APAP 10-325MG 1 EACH TAB PO PRN ×7 (00:03→22:32)
[2017-04-23] MEDS ORDERED: HYDROmorphone 1 MG/ML 1 ML SYRINGE IVP PRN (03:36)
[2017-04-23] MEDS: SODIUM CHLORIDE 0.9% 1,000 ML IV SCH ×3 (03:45→23:34)
[2017-04-23] MEDS: AMPICILLIN-SULBACTAM 3 GM in SODIUM CHLORIDE 0.9% 100 ML IVPB SCH ×2 (05:25→11:27)
[2017-04-23 07:40] LABS: Glucose,Whole Blood 272 mg/dL (75-99)
[2017-04-23] MEDS: INSULIN ASPART 100 UNIT/ML 1 ML 10 ML VIAL SQ SCH ×5 (07:53→21:48)
[2017-04-23] MEDS: PANTOPRAZOLE 40 MG TABLET PO SCH (07:56)
[2017-04-23] MEDS: FUROSEMIDE 20 MG TAB PO SCH (07:58)
[2017-04-23] MEDS: METOPROLOL TARTRATE 50 MG TAB PO SCH ×2 (07:59→20:17)
[2017-04-23] MEDS: GABAPENTIN 100 MG CAP PO SCH ×2 (07:59→20:16)
[2017-04-23] MEDS: RIVAROXABAN 10 MG TAB PO SCH (07:59)
[2017-04-23] MEDS: metFORMIN 500 MG TAB PO SCH ×2 (07:59→20:17)
[2017-04-23] MEDS: SYMBICORT 160-4.5 MCG INHALER INHALATION SCH ×2 (09:06→20:14)
[2017-04-23 12:27] LABS: Glucose,Whole Blood 265 mg/dL (75-99)
--- NOTE | 2017-04-23 14:48 | P.CONS ---
History of Present Illness - Reason for Consult Consult date: 04/23/17 Bilateral lower extremity cellulitis - History of Present Illness This is a 67-year-old female patient well-known to ID service as she was seen on on October admission after a fall on her left knee causing a rug burn. She underwent an I&D of the site and was then placed on Rocephin for 21 day course which she has completed and had complete healing of the left knee. She then presented on March 15 status post ablation of the vein in the right leg done by Dr. Bonilla at [facility]. 2 weeks following this she developed increased redness, sores and sloughing of the tissue. Lasix was increased but drainage became much worse with chills and she was not able to walk due to swelling and pain in her feet and thus came into [facility] emergency center for evaluation. She was treated for sepsis and septic shock secondary to bilateral cellulitis of the lower extremities complicated by acute respiratory failure, acute kidney injury, metabolic encephalopathy, right occipital stroke. Patient was eventually stabilized and discharged to [facility] on cefepime 2 g every 12 hours through April 08. Patient presented to [facility] emergency center due to increasing redness, swelling and weeping of the bilateral lower extremities. She has been afebrile with a white count of 13.6. Creatinine was 0.84 and albumin 3.3. Patient was found to be tachycardic. Wound culture was obtained that Gram stain is showing gram-positive cocci, gram-negative bacilli and budding yeast. Blood cultures status received. Patient has been admitted to the [facility] floor and started on Unasyn. She is also been seen by Dr. Taylor. Patient feels that she has had urine output but denies pain with urination. She denies any fever or chills. She states her blood sugars are running in the 200s at the [place] [facility]. She states she is using a walker but tires very easily. She also relates that she has been watching her salt intake and eating more sugar free foods. Hemoglobin A1c is pending. Review of Systems All systems: negative Constitutional: Reports weakness, Denies chills, Denies fever, Denies weight gain, Denies weight loss Eyes: denies blurred vision, denies pain Ears, nose, mouth and throat: Denies headache, Denies sore throat Cardiovascular: Reports leg edema, Denies chest pain, Denies decreased exercise tolerance, Denies dyspnea on exertion, Denies lightheadedness, Denies shortness of breath, Denies syncope Respiratory: Denies cough, Denies cough with sputum, Denies dyspnea, Denies excessive sputum, Denies hemoptysis, Denies home oxygen, Denies wheezing Gastrointestinal: Denies abdominal pain, Denies diarrhea, Denies loss of appetite, Denies nausea, Denies vomiting Genitourinary: Denies dysuria, Denies hematuria Musculoskeletal: Denies myalgias Integumentary: Denies pruritus, Denies rash Neurological: Denies numbness, Denies weakness Psychiatric: Denies anxiety, Denies depression Endocrine: Denies fatigue, Denies weight change Past Medical History Past Medical History: Atrial Fibrillation, Asthma, Heart Failure, Diabetes Mellitus, GERD/Reflux, Hypertension Additional Past Medical History / Comment(s): Anemia, sepsis, metabolic encephalopathy, carotid artery stenosis, BL LE cellulitis, acute kidney failure. History of Any Multi-Drug Resistant Organisms: None Reported Past Surgical History: Appendectomy, Hysterectomy, Orthopedic Surgery, Tonsillectomy Additional Past Surgical History / Comment(s): Cardioversion, arthroscopy of left knee, September 2016 - cleaned left knee and left drain tube in. Past Anesthesia/Blood Transfusion Reactions: No Reported Reaction Smoking Status: Former smoker Additional Past Alcohol Use History / Comment(s): Patient was a smoker one pack per day for 25 years and quit in 1970. She has used marijuana occasionally in the past. She denies any other street drug use. She drinks alcohol occasionally. She is currently at [facility]. Prior to that she was living with her son and [id number] and there are 2 dogs in the home. She is . - Past Family History Mother Family Medical History: No Reported History Medications and Allergies Home Medications Medication Instructions Recorded Confirmed Type Aspirin 325 mg PO HS 06/17/16 04/22/17 History Multivitamins, Thera [Multivitamin 1 tab PO HS 06/17/16 04/22/17 History (formulary)] Omeprazole [PriLOSEC] 20 mg PO AC-BRKFST 06/17/16 04/22/17 History Rivaroxaban [Xarelto] 20 mg PO DAILY 06/17/16 04/22/17 History metFORMIN HCL 1,000 mg PO BID 06/17/16 04/22/17 History Ascorbic Acid [Vitamin C] 500 mg PO HS 03/15/17 04/22/17 History Budesonide/Formoterol Fumarate 2 puff INHALATION RT-BID 03/15/17 04/22/17 History [Symbicort 160-4.5 Mcg Inhaler] Bisacodyl [Dulcolax] 10 mg RECTAL DAILY PRN supp 03/27/17 04/22/17 Rx Gabapentin [Neurontin] 200 mg PO BID cap 03/27/17 04/22/17 Rx Acetaminophen Tab [Tylenol Tab] 650 mg PO Q4H PRN 04/22/17 04/22/17 History Albuterol Nebulized [Ventolin 2.5 mg INHALATION RT-Q6H PRN 04/22/17 04/22/17 History Nebulized] Atorvastatin [Lipitor] 10 mg PO HS@199904/22/17 04/22/17 History Dexamethasone [Hexadrol] 4 mg PO DAILY 04/22/17 04/22/17 History Furosemide [Lasix] 20 mg PO DAILY 04/22/17 04/22/17 History HYDROcodone/APAP 10-325MG [[place] 1 tab PO Q4H PRN 04/22/17 04/22/17 History 10-325] INSULIN LISPRO (HumaLOG) [humaLOG] 10 unit SQ AC-TID 04/22/17 04/22/17 History INSULIN LISPRO (humaLOG) [humaLOG] See Protocol SQ AC-TID PRN 04/22/17 04/22/17 History Insulin Detemir [Levemir] 35 unit SQ HS 04/22/17 04/22/17 History Metoprolol Tartrate [Lopressor] 50 mg PO BID 04/22/17 04/22/17 History Allergies Allergy/AdvReac Type Severity Reaction Status Date / Time bee venom protein (honey bee) Allergy Swelling Verified 04/22/17 20:24 Physical Exam Vitals: Vital Signs Temp Pulse Pulse Resp BP BP Pulse Ox 04/23/17 07:00 96.9 F L 116 H 20 175/83 93 L 04/23/17 00:45 97.7 F 110 H 20 137/73 96 04/23/17 00:08 98 F 90 20 161/72 96 04/22/17 23:00 107 H 20 157/71 97 04/22/17 21:01 107 H 18 155/70 97 04/22/17 19:59 97 F L 107 H 20 180/81 95 Intake and Output 04/22/17 04/23/17 04/23/17 22:59 06:59 14:59 Intake Total 200 240 Balance 200 240 Intake: Oral 200 240 Other: Voiding Method Bedside Commode Bedside Commode Incontinent # Voids 1 1 # Bowel Movements 1 Weight 113.398 kg 113 kg Gen: This is a morbidly obese 67-year-old female. She is sitting on the edge of the bed and appears to be in no acute distress. She is complaining of significant pain and burning to the bilateral lower extremities. HEENT: Head is atraumatic, normocephalic. Pupils equal, round. Sclerae is anicteric. Conjunctiva pink. Oral mucous membranes moist. No thrush noted. NECK: Supple. No JVD. No lymphadenopathy. No thyromegaly. LUNGS: Scattered wheezes. No intercostal retractions. HEART: Regular rate and rhythm. No murmur. ABDOMEN: Obese Soft. Bowel sounds are present. No masses. No tenderness. EXTREMITIES: Significant edema and ulcerations to bilateral lower extremities most severe on the right. NEUROLOGICAL: Patient is awake, alert and oriented x3. Cranial nerves 2 through 12 are grossly intact. Generalized weakness noted. Results Results: Laboratory Results WBC 13.6 k/uL (3.8-10.6) H 04/22/17 21:14 RBC 4.36 m/uL (3.80-5.40) 04/22/17 21:14 Hgb 9.3 gm/dL (11.4-16.0) L 04/22/17 21:14 Hct 34.3 % (34.0-46.0) 04/22/17 21:14 MCV 78.8 fL (80.0-100.0) L 04/22/17 21:14 MCH 21.3 pg (25.0-35.0) L 04/22/17 21:14 MCHC 27.1 g/dL (31.0-37.0) L 04/22/17 21:14 RDW 22.4 % (11.5-15.5) H 04/22/17 21:14 Plt Count 161 k/uL (150-450) 04/22/17 21:14 Neutrophils % 75 % 04/22/17 21:14 Lymphocytes % 17 % 04/22/17 21:14 Monocytes % 5 % 04/22/17 21:14 Eosinophils % 0 % 04/22/17 21:14 Basophils % 0 % 04/22/17 21:14 Neutrophils # 10.2 k/uL (1.3-7.7) H 04/22/17 21:14 Lymphocytes # 2.3 k/uL (1.0-4.8) 04/22/17 21:14 Monocytes # 0.6 k/uL (0-1.0) 04/22/17 21:14 Eosinophils # 0.0 k/uL (0-0.7) 04/22/17 21:14 Basophils # 0.0 k/uL (0-0.2) 04/22/17 21:14 Hypochromasia Marked 04/22/17 21:14 Anisocytosis Moderate 04/22/17 21:14 Microcytosis Moderate 04/22/17 21:14 Sodium 136 mmol/L (137-145) L 04/22/17 21:14 Potassium 5.6 mmol/L (3.5-5.1) H 04/22/17 21:14 Chloride 100 mmol/L (98-107) 04/22/17 21:14 Carbon Dioxide 23 mmol/L (22-30) 04/22/17 21:14 Anion Gap 13 mmol/L 04/22/17 21:14 BUN 38 mg/dL (7-17) H 04/22/17 21:14 Creatinine 0.84 mg/dL (0.52-1.04) 04/22/17 21:14 Est GFR (MDRD) Af Amer >60 (>60 ml/min/1.73 sqM) 04/22/17 21:14 Est GFR (MDRD) Non-Af >60 (>60 ml/min/1.73 sqM) 04/22/17 21:14 Glucose 167 mg/dL (74-99) H 04/22/17 21:14 POC Glucose (mg/dL) 265 mg/dL (75-99) H 04/23/17 12:17 POC Glu Process Technician ID Florecita Antonio 04/23/17 12:17 Calcium 8.9 mg/dL (8.4-10.2) 04/22/17 21:14 Total Bilirubin 0.6 mg/dL (0.2-1.3) 04/22/17 21:14 AST 40 U/L (14-36) H 04/22/17 21:14 ALT 30 U/L (9-52) 04/22/17 21:14 Alkaline Phosphatase 67 U/L (38-126) 04/22/17 21:14 Total Protein 6.1 g/dL (6.3-8.2) L 04/22/17 21:14 Albumin 3.3 g/dL (3.5-5.0) L 04/22/17 21:14 CBC & Chem 7: 04/22/17 21:14 04/22/17 21:14 Labs: Abnormal Lab Results - Last 24 Hours (Table) 04/22/17 04/22/17 04/22/17 Range/Units 20:13 21:14 21:14 WBC 13.6 H (3.8-10.6) k/uL Hgb 9.3 L (11.4-16.0) gm/dL MCV 78.8 L (80.0-100.0) fL MCH 21.3 L (25.0-35.0) pg MCHC 27.1 L (31.0-37.0) g/dL RDW 22.4 H (11.5-15.5) % Neutrophils # 10.2 H (1.3-7.7) k/uL Sodium 136 L (137-145) mmol/L Potassium 5.6 H (3.5-5.1) mmol/L BUN 38 H (7-17) mg/dL Glucose 167 H (74-99) mg/dL POC Glucose (mg/dL) 177 H (75-99) mg/dL AST 40 H (14-36) U/L Total Protein 6.1 L (6.3-8.2) g/dL Albumin 3.3 L (3.5-5.0) g/dL 04/23/17 04/23/17 Range/Units 07:19 12:17 WBC (3.8-10.6) k/uL Hgb (11.4-16.0) gm/dL MCV (80.0-100.0) fL MCH (25.0-35.0) pg MCHC (31.0-37.0) g/dL RDW (11.5-15.5) % Neutrophils # (1.3-7.7) k/uL Sodium (137-145) mmol/L Potassium (3.5-5.1) mmol/L BUN (7-17) mg/dL Glucose (74-99) mg/dL POC Glucose (mg/dL) 272 H 265 H (75-99) mg/dL AST (14-36) U/L Total Protein (6.3-8.2) g/dL Albumin (3.5-5.0) g/dL Microbiology - Last 24 Hours (Table) 04/22/17 21:14 Gram Stain - Preliminary Leg - Right Wound Culture - Preliminary Assessment and Plan Plan: This is a 67-year-old female who presented to the hospital with significant bilateral lower extremity cellulitis with ulcerations. Patient's antibiotic switched to cefepime to cover for Pseudomonas, staph and strep. Previous wound culture was positive for Staphylococcus aureus and Pseudomonas fluorescens. Dr. Taylor is also on consult. Local wound care will be addressed. Continue supportive care. Patient will need tight glucose control. Will follow wound and blood cultures. The above dictated assessment and findings were discussed with Dr. Cortés. The impression and plan of care have been directed as dictated. Anupama Perales nurse practitioner acting as scribe for Dr. Cortés.
[2017-04-23 15:51] LABS: Hemoglobin A1C 6.6 % (4.0-6.0)
[2017-04-23 16:25] VITALS: BMI 36.8
[2017-04-23] MEDS ORDERED: ALPRAZolam 0.25 MG TAB PO PRN (16:39)
[2017-04-23] MEDS: CEFEPIME 2 GM in SODIUM CHLORIDE 0.9% 50 ML IVPB SCH ×2 (17:04→20:16)
[2017-04-23 17:17] LABS: Glucose,Whole Blood 201 mg/dL (75-99)
--- NOTE | 2017-04-23 17:18 | HP ---
HISTORY AND PHYSICAL DATE OF ADMISSION: 04/23/17 CHIEF COMPLAINTS: Bilateral leg cellulitis. HISTORY OF PRESENT ILLNESS: This 67-year-old woman with a past medical history of multiple medical problems including atrial fibrillation, history of CHF, diabetes, hypertension, history of anemia, appendectomy, also had previous bilateral leg cellulitis. Patient currently in ECF. The patient is complaining of increase in swelling and erythema and as well as some discharge. The patient is sent for further evaluation and treatment. There is no history of fever, rigors or chills. No history of headache, loss of consciousness, seizures. PAST MEDICAL HISTORY: History of atrial ablation, asthma, CHF, CAD, history of diabetes, GERD, hypertension, anemia. MEDICATIONS: Prior to admission include home medications are: 1. Metformin 1000 mg p.o. b.i.d. 2. Xarelto 20 mg. 3. Prilosec 20 mg a.c. breakfast. 4. Multivitamins one p.o. daily. 5. Lopressor 50 mg b.i.d. 6. Levemir 30 units subcu q.h.s. 7. Humalog scale a.c. and q.h.s. 8. [place] 10 mg q.4h p.r.n. 9. Neurontin 200 mg p.o. b.i.d. 10.Lasix 20 mg b.i.d. 11.Hexadrol 4 mg p.o. daily. 12.Symbicort 160/4.5 two puffs b.i.d. 13.Dulcolax 10 mg rectally daily p.r.n. 14.Lipitor 10 mg q.h.s. 15.Aspirin 320 mg q.h.s. 16.Multivitamins C 500 mg q.h.s. 17.Ventolin 2.5 q.6h. 18.Tylenol 650 q.4h p.r.n. ALLERGIES: BEE VENOM. FAMILY HISTORY: No history of heart disease or strokes in the family. SOCIAL HISTORY: History of occasional alcohol. No history of PTSD and previous smoker. REVIEW OF SYSTEMS: ENT: Diminished vision and diminished hearing. Cardiac systems: S1, S2 muffled. Respiratory: Breath sounds diminished in the bases. GI: No nausea or vomiting. : No dysuria. Central nervous system: No numbness or weakness. Musculoskeletal: As mentioned earlier. Hematology/Oncology: No history of anemia. Endocrine: History of diabetes. Constitutional: As mentioned earlier. Dermatology: Negative. Rheumatology: Negative. Psychiatric: As mentioned earlier. PHYSICAL EXAMINATION: Alert and oriented times three. Pulse is 96, blood pressure 128/70, respiration 20, temperature 98 degrees, pulse ox 94% on room air. HEENT: Conjunctivae normal. Neck: No jugular venous distention. Cardiovascular: S1, S2 muffled. Respiratory: Breath sounds diminished in the bases. Scattered rhonchi and crackles. Expiratory wheezing also present. ABDOMEN: Soft, nontender. No mass palpable. Legs: Bilateral leg edema and bilateral edema and bilateral leg cellulitis also present. Pulses diminished bilaterally. Nervous system: Higher functions as mentioned earlier, moves all 4 limbs, no focal motor or sensory deficits. Lymphatics: No lymph nodes palpable in the neck, axillae or groin. SKIN: No ulcer, rash or bleeding. LABS: At this time shows WBC 13.2, hemoglobin 9.3, sodium 130, potassium 5.6, hemoglobin ASSESSMENT: 1. Acute bilateral leg cellulitis with failure for outpatient treatment. 2. Increased potassium, hyperkalemia. 3. Hyponatremia. 4. Increased WBC. 5. Atrial fibrillation. 6. History of asthma. 7. History of congestive heart failure. 8. Diabetes type 2. 9. Hypertension. 10.History of metabolic encephalopathy. 11.History of carotid artery stenosis. 12.History of bilateral leg cellulitis. 13.History of hysterectomy. 14.Remote history of nicotine dependence. 15.FULL CODE. RECOMMENDATIONS AND DISCUSSION: In this 67-year-old woman who presented with multiple complex medical issues, we will monitor the patient closely, continue the current management and symptomatic treatment. Otherwise at this time I recommend monitor potassium closely. Kayexalate. I would also recommend broad-spectrum IV antibiotics. Local treatment. Cultures. The previous cultures showed multiple organisms including MSSA and Pseudomonas fluorescens and Staph aureus, Staph hominis infections. Currently patient is on cefepime and continue to monitor. Prognosis guarded. See orders for details. Further recommendations to follow. Patient is on Xarelto also. MMODL / IJN: [id number] / MTDD
[2017-04-23] MEDS: FUROSEMIDE 10 MG/ML 4 ML VIAL IV SCH (17:21)
--- NOTE | 2017-04-23 17:23 | XR ---
EXAMINATION TYPE: XR chest 1V portable DATE OF EXAM: 04/23/2017 COMPARISON: 03/24/2017 HISTORY: Short of breath. Heart failure. TECHNIQUE: Single frontal view of the chest is obtained. FINDINGS: There is elevated right diaphragm. There is slight coarsening of interstitial markings. He art is probably enlarged. Thoracic aorta is atheromatous. IMPRESSION: Chronic elevated right diaphragm. No gross heart failure. There is clearing of the pulmo nary congestion compared to last exam. Stable cardiomegaly.
[2017-04-23 20:10] LABS: Appearance,Urine Clear (Clear); Bacteria,Urine Rare /hpf; Bilirubin,Urine Negative (Negative); Blood,Urine Small (Negative); Color,Urine Light Yellow; Glucose,Urine (UA) Negative (Negative); Hyaline Casts,Urine 6 /lpf (0-2); Ketones,Urine Negative (Negative); Leukocyte Esterase,Urine Negative (Negative); Mucus,Urine Rare /hpf; Nitrite,Urine Negative (Negative); Protein,Urine Negative (Negative); RBC,Urine 4 /hpf (0-5); Specific Gravity,Urine 1.007 (1.001-1.035); Urobilinogen,Urine <2.0 mg/dL (<2.0); WBC,Urine 1 /hpf (0-5)
[2017-04-23] MEDS: ATORVASTATIN 10 MG TAB PO SCH (20:16)
[2017-04-23] MEDS: ASCORBIC ACID 500 MG TAB PO SCH (20:16)
[2017-04-23] MEDS: ASPIRIN 325 MG TAB PO SCH (20:16)
[2017-04-23] MEDS: MULTIVITAMINS, THERA 1 EACH TAB PO SCH (20:17)
[2017-04-23 21:12] LABS: Glucose,Whole Blood 141 mg/dL (75-99)
[2017-04-23] MEDS: INSULIN DETEMIR 100 UNIT/ML 10 ML VIAL SQ SCH (21:48)
--- NOTE | 2017-04-24 00:43 | P.CON ---
Consult Note - . Consult date: 04/23/17 Assessment/Plan:: This is a 67-year-old female patient well-known to ID service as she was seen on on October admission after a fall on her left knee causing a rug burn. She underwent an I&D of the site and was then placed on Rocephin for 21 day course which she has completed and had complete healing of the left knee. She then presented on March 15 status post ablation of the vein in the right leg done by Dr. Bonilla at [facility]. 2 weeks following this she developed increased redness, sores and sloughing of the tissue. Lasix was increased but drainage became much worse with chills and she was not able to walk due to swelling and pain in her feet and thus came into [facility] emergency center for evaluation. She was treated for sepsis and septic shock secondary to bilateral cellulitis of the lower extremities complicated by acute respiratory failure, acute kidney injury, metabolic encephalopathy, right occipital stroke. Patient was eventually stabilized and discharged to [facility] on cefepime 2 g every 12 hours through April 08. Patient presented to [facility] emergency center due to increasing redness, swelling and weeping of the bilateral lower extremities. She has been afebrile with a white count of 13.6. Creatinine was 0.84 and albumin 3.3. Patient was found to be tachycardic. Wound culture was obtained that Gram stain is showing gram-positive cocci, gram-negative bacilli and budding yeast. Blood cultures status received. Patient has been admitted to the [facility] floor and started on Unasyn. She is also been seen by Dr. Taylor. Patient feels that she has had urine output but denies pain with urination. She denies any fever or chills. She states her blood sugars are running in the 200s at the halfway. She states she is using a walker but tires very easily. She also relates that she has been watching her salt intake and eating more sugar free foods. Hemoglobin A1c is pending. please see the consult note as dictated by nurse practitioner Anupama Perales. Patient has had an extensive worsening to her lower extremities since last being seen. She is evidence of large necrotic areas that are quite painful. Her bilateral lower extremities are cool to cold with poor capillary refill and tenderness. at this time appears to have severe peripheral vascular disease with significant ischemic changes occurring to the bilateral lower extremities with extensive ulcerations. Local wound care with Silvadene can be applied which may be soothing with only Curlex being applied with no compression. vascular surgery consult is in progress. venous Dopplers are requested and defer to vascular surgery as to the workup to the arterial status, either by Doppler or by angiography. With her history of prior staphylococcal infection as well as Pseudomonas infection Cefepime is added. Prognosis is quite poor. I agree with evaluation , assessment and plan as dictated by nurse practitioner Mrs. Anupama Perales.
[2017-04-24] MEDS: HYDROcodone/APAP 10-325MG 1 EACH TAB PO PRN ×6 (02:11→20:57)
[2017-04-24] MEDS: SYMBICORT 160-4.5 MCG INHALER INHALATION SCH ×2 (07:22→20:01)
[2017-04-24] MEDS: INSULIN ASPART 100 UNIT/ML 1 ML 10 ML VIAL SQ SCH ×7 (08:00→21:02)
[2017-04-24] MEDS: PANTOPRAZOLE 40 MG TABLET PO SCH (08:01)
[2017-04-24] MEDS: CEFEPIME 2 GM in SODIUM CHLORIDE 0.9% 50 ML IVPB SCH ×2 (08:01→20:59)
[2017-04-24] MEDS: GABAPENTIN 100 MG CAP PO SCH ×2 (08:02→20:59)
[2017-04-24] MEDS: FUROSEMIDE 20 MG TAB PO SCH (08:02)
[2017-04-24] MEDS: FUROSEMIDE 10 MG/ML 4 ML VIAL IV SCH (08:02)
[2017-04-24] MEDS: RIVAROXABAN 10 MG TAB PO SCH (08:03)
[2017-04-24] MEDS: METOPROLOL TARTRATE 50 MG TAB PO SCH ×2 (08:03→21:00)
[2017-04-24] MEDS: metFORMIN 500 MG TAB PO SCH ×2 (08:03→20:59)
[2017-04-24 08:16] LABS: Glucose,Whole Blood 121 mg/dL (75-99)
[2017-04-24] MEDS: SILVER sulfADIAZINE Cream 400 GM 1 APPLIC APPLIC TOPICAL SCH ×2 (09:06→21:03)
--- NOTE | 2017-04-24 10:49 | US ---
EXAMINATION TYPE: US venous doppler duplex LE BI DATE OF EXAM: 04/24/2017 10:32 AM COMPARISON: NONE CLINICAL HISTORY: bilateral lower extremity deep venous thrombosis. SIDE PERFORMED: Bilateral TECHNIQUE: The lower extremity deep venous system is examined utilizing real time linear array sonog ling with graded compression, doppler sonography and color-flow sonography. VESSELS IMAGED: External Iliac Vein (EIV) Common Femoral Vein Deep Femoral Vein Greater Saphenous Vein * Femoral Vein Popliteal Vein Small Saphenous Vein * Proximal Calf Veins, not seen due to body habitus and swelling (* superficial vessels) Grayscale, color doppler, spectral doppler imaging performed of the deep veins of the lower extremiti es. There is normal flow, compressibility, vascular waveforms. Extensive bilateral edema. Large body habitus. Right Leg: Negative for DVT Left Leg: Negative for DVT IMPRESSION: No evidence for DVT at this time.
[2017-04-24 11:54] LABS: Glucose,Whole Blood 252 mg/dL (75-99)
--- NOTE | 2017-04-24 14:13 | CONS ---
CONSULTATION This patient is a 67-year-old, female patient is under care of Dr. Cortés. Patient has been admitted with history of extensive cellulitis with multiple superficial ulcer right lower extremity and also in the left lower extremity. MEDICAL HISTORY: Atrial fibrillation, asthma, heart failure, diabetes mellitus, hypertension, patient has multiple ulcers on the right lower extremity with weeping of bilateral lower extremities. PHYSICAL EXAMINATION: Patient was seen in her room. Her neck is supple. Chest has a few crackles at the lung bases. Abdomen is soft. Femorals are 1+. Posterior dorsalis pedis not palpable. Patient has multiple ulcers on right lower extremity with cellulitis, more on the right than on the left. Patient was seen by Infectious Disease. She is on Silvadene cream and compression wrap. According to nurses, patient will be going home. Family wants to take care of her at home. If she wants to be surgically evaluated, we will consider doing angiogram. We will discuss with Dr. Cortés. At this point, patient first need these ulcerations to be controlled with the local wound care of right lower extremity. I will discuss this case with Dr. Cortés and follow with you. MMODL / IJN: [id number] /
--- NOTE | 2017-04-24 14:48 | P.PN ---
Subjective Progress Note Date: 04/24/17 Principal diagnosis: Lower extremity ulcers This is a 67-year-old female patient well-known to ID service as she was seen on on October admission after a fall on her left knee causing a rug burn. She underwent an I&D of the site and was then placed on Rocephin for 21 day course which she has completed and had complete healing of the left knee. She then presented on March 15 status post ablation of the vein in the right leg done by Dr. Bonilla at [facility]. 2 weeks following this she developed increased redness, sores and sloughing of the tissue. Lasix was increased but drainage became much worse with chills and she was not able to walk due to swelling and pain in her feet and thus came into [facility] emergency center for evaluation. She was treated for sepsis and septic shock secondary to bilateral cellulitis of the lower extremities complicated by acute respiratory failure, acute kidney injury, metabolic encephalopathy, right occipital stroke. Patient was eventually stabilized and discharged to [facility] on cefepime 2 g every 12 hours through April 08. Patient presented to [facility] emergency center due to increasing redness, swelling and weeping of the bilateral lower extremities. She has been afebrile with a white count of 13.6. Creatinine was 0.84 and albumin 3.3. Patient was found to be tachycardic. Wound culture was obtained that Gram stain is showing gram-positive cocci, gram-negative bacilli and budding yeast. Blood cultures status received. Patient has been admitted to the [facility] floor and started on Unasyn. She is also been seen by Dr. Taylor. Patient feels that she has had urine output but denies pain with urination. She denies any fever or chills. She states her blood sugars are running in the 200s at the correction. She states she is using a walker but tires very easily. She also relates that she has been watching her salt intake and eating more sugar free foods. Hemoglobin A1c is at 6.6. Patient is feeling better today. Pain in her legs is improved. Has been seen by vascular surgery. Objective - Vital Signs Vital signs: Vital Signs Temp 97.7 F 04/24/17 07:00 Pulse 103 H 04/24/17 07:00 Resp 16 04/24/17 07:00 BP 155/72 04/24/17 07:00 Pulse Ox 90 L 04/24/17 07:00 Intake & Output 04/23/17 04/24/17 04/24/17 18:59 06:59 18:59 Intake Total 240 800 Balance 240 800 Weight 113 kg Intake: Oral 240 800 Other: Voiding Method Bedside Commode Bedside Commode Incontinent Diaper Incontinent # Voids 3 3 2 # Bowel Movements 0 1 - Exam Gen: This is a morbidly obese 67-year-old female. She is sitting on the edge of the bed and appears to be in no acute distress. She is complaining of significant pain and burning to the bilateral lower extremities. HEENT: Head is atraumatic, normocephalic. Pupils equal, round. Sclerae is anicteric. Conjunctiva pink. Oral mucous membranes moist. No thrush noted. NECK: Supple. No JVD. No lymphadenopathy. No thyromegaly. LUNGS: Scattered wheezes. No intercostal retractions. HEART: Regular rate and rhythm. No murmur. ABDOMEN: Obese Soft. Bowel sounds are present. No masses. No tenderness. EXTREMITIES: Significant edema and ulcerations which are full-thickness with drainage and some eschar formation to bilateral lower extremities most severe on the right. NEUROLOGICAL: Patient is awake, alert and oriented x3 - Labs CBC & Chem 7: 04/22/17 21:14 04/22/17 21:14 Labs: Abnormal Lab Results - Last 24 Hours (Table) 04/22/17 04/23/17 04/23/17 Range/Units 21:14 17:03 20:00 POC Glucose (mg/dL) 201 H (75-99) mg/dL Hemoglobin A1c 6.6 H (4.0-6.0) % Urine Blood Small H (Negative) Urine Bacteria Rare H (None) /hpf Hyaline Casts 6 H (0-2) /lpf Urine Mucus Rare H (None) /hpf 04/23/17 04/24/17 04/24/17 Range/Units 21:08 07:57 11:52 POC Glucose (mg/dL) 141 H 121 H 252 H (75-99) mg/dL Hemoglobin A1c (4.0-6.0) % Urine Blood (Negative) Urine Bacteria (None) /hpf Hyaline Casts (0-2) /lpf Urine Mucus (None) /hpf Microbiology - Last 24 Hours (Table) 04/23/17 08:55 Blood Culture - Preliminary Blood No Growth after 24 hours 04/23/17 21:46 Urine Culture - Preliminary Urine,Voided 04/22/17 21:14 Gram Stain - Preliminary Leg - Right Wound Culture - Preliminary Presumptive Staph aureus Yeast species Laboratory Results WBC 13.6 k/uL (3.8-10.6) H 04/22/17 21:14 RBC 4.36 m/uL (3.80-5.40) 04/22/17 21:14 Hgb 9.3 gm/dL (11.4-16.0) L 04/22/17 21:14 Hct 34.3 % (34.0-46.0) 04/22/17 21:14 MCV 78.8 fL (80.0-100.0) L 04/22/17 21:14 MCH 21.3 pg (25.0-35.0) L 04/22/17 21:14 MCHC 27.1 g/dL (31.0-37.0) L 04/22/17 21:14 RDW 22.4 % (11.5-15.5) H 04/22/17 21:14 Plt Count 161 k/uL (150-450) 04/22/17 21:14 Neutrophils % 75 % 04/22/17 21:14 Lymphocytes % 17 % 04/22/17 21:14 Monocytes % 5 % 04/22/17 21:14 Eosinophils % 0 % 04/22/17 21:14 Basophils % 0 % 04/22/17 21:14 Neutrophils # 10.2 k/uL (1.3-7.7) H 04/22/17 21:14 Lymphocytes # 2.3 k/uL (1.0-4.8) 04/22/17 21:14 Monocytes # 0.6 k/uL (0-1.0) 04/22/17 21:14 Eosinophils # 0.0 k/uL (0-0.7) 04/22/17 21:14 Basophils # 0.0 k/uL (0-0.2) 04/22/17 21:14 Hypochromasia Marked 04/22/17 21:14 Anisocytosis Moderate 04/22/17 21:14 Microcytosis Moderate 04/22/17 21:14 Sodium 136 mmol/L (137-145) L 04/22/17 21:14 Potassium 5.6 mmol/L (3.5-5.1) H 04/22/17 21:14 Chloride 100 mmol/L (98-107) 04/22/17 21:14 Carbon Dioxide 23 mmol/L (22-30) 04/22/17 21:14 Anion Gap 13 mmol/L 04/22/17 21:14 BUN 38 mg/dL (7-17) H 04/22/17 21:14 Creatinine 0.84 mg/dL (0.52-1.04) 04/22/17 21:14 Est GFR (MDRD) Af Amer >60 (>60 ml/min/1.73 sqM) 04/22/17 21:14 Est GFR (MDRD) Non-Af >60 (>60 ml/min/1.73 sqM) 04/22/17 21:14 Glucose 167 mg/dL (74-99) H 04/22/17 21:14 POC Glucose (mg/dL) 252 mg/dL (75-99) H 04/24/17 11:52 POC Glu [employer] ID Sheri Agudelo 04/24/17 11:[address] Glu mg/dL 143 04/22/17 21:14 Hemoglobin A1c 6.6 % (4.0-6.0) H 04/22/17 21:14 Calcium 8.9 mg/dL (8.4-10.2) 04/22/17 21:14 Total Bilirubin 0.6 mg/dL (0.2-1.3) 04/22/17 21:14 AST 40 U/L (14-36) H 04/22/17 21:14 ALT 30 U/L (9-52) 04/22/17 21:14 Alkaline Phosphatase 67 U/L (38-126) 04/22/17 21:14 Total Protein 6.1 g/dL (6.3-8.2) L 04/22/17 21:14 Albumin 3.3 g/dL (3.5-5.0) L 04/22/17 21:14 Urine Color Light Yellow 04/23/17 20:00 Urine Appearance Clear (Clear) 04/23/17 20:00 Urine pH 5.0 (5.0-8.0) 04/23/17 20:00 Ur Specific [place] 1.007 (1.001-1.035) 04/23/17 20:00 Urine Protein Negative (Negative) 04/23/17 20:00 Urine Glucose (UA) Negative (Negative) 04/23/17 20:00 Urine Ketones Negative (Negative) 04/23/17 20:00 Urine Blood Small (Negative) H 04/23/17 20:00 Urine Nitrite Negative (Negative) 04/23/17 20:00 Urine Bilirubin Negative (Negative) 04/23/17 20:00 Urine Urobilinogen <2.0 mg/dL (<2.0) 04/23/17 20:00 Ur Leukocyte Esterase Negative (Negative) 04/23/17 20:00 Urine RBC 4 /hpf (0-5) 04/23/17 20:00 Urine WBC 1 /hpf (0-5) 04/23/17 20:00 Urine Bacteria Rare /hpf (None) H 04/23/17 20:00 Hyaline Casts 6 /lpf (0-2) H 04/23/17 20:00 Urine Mucus Rare /hpf (None) H 04/23/17 20:00 Microbiology 04/23/17 08:55 Blood Blood Culture - Preliminary No Growth after 24 hours 04/23/17 21:46 Urine,Voided Urine Culture - Preliminary 04/22/17 21:14 Leg - Right Gram Stain - Preliminary 04/22/17 21:14 Leg - Right Wound Culture - Preliminary Presumptive Staph aureus Yeast species Assessment and Plan (1) Cellulitis of both lower extremities Narrative/Plan: Patient has had an extensive worsening to her lower extremities since last being seen. She is evidence of large necrotic areas that are quite painful. Her bilateral lower extremities are cool to cold with poor capillary refill and tenderness. at this time appears to have severe peripheral vascular disease with significant ischemic changes occurring to the bilateral lower extremities with extensive ulcerations. Local wound care with Silvadene can be applied which may be soothing with only Curlex being applied with no compression. vascular surgery consult is in progress. venous Dopplers are requested and defer to vascular surgery as to the workup to the arterial status, either by Doppler or by angiography. With her history of prior staphylococcal infection as well as Pseudomonas infection Cefepime is added. Prognosis is quite poor. Patient has been seen by vascular surgery. Awaiting their input as to the need for arterial assessment including angiography given the severe change of her lower extremities with the ulcerations in the evidence of arterial disease. Antibiotic therapy continues for now she'll cultures are final. Current Visit: Yes Status: Acute Code(s): L03.115 - CELLULITIS OF RIGHT LOWER LIMB; L03.116 - CELLULITIS OF LEFT LOWER LIMB SNOMED Code(s): 754398091 (2) Diabetes mellitus type 2 in obese Current Visit: No Status: Acute Code(s): E11.69 - TYPE 2 DIABETES MELLITUS WITH OTHER SPECIFIED COMPLICATION; E66.9 - OBESITY, UNSPECIFIED SNOMED Code(s) : 76645157
[2017-04-24 17:27] LABS: Glucose,Whole Blood 141 mg/dL (75-99)
[2017-04-24 20:30] LABS: Glucose,Whole Blood 231 mg/dL (75-99)
[2017-04-24] MEDS: ASPIRIN 325 MG TAB PO SCH (20:58)
[2017-04-24] MEDS: ASCORBIC ACID 500 MG TAB PO SCH (20:58)
[2017-04-24] MEDS: ATORVASTATIN 10 MG TAB PO SCH (20:58)
[2017-04-24] MEDS: MULTIVITAMINS, THERA 1 EACH TAB PO SCH (21:00)
[2017-04-24] MEDS: INSULIN DETEMIR 100 UNIT/ML 10 ML VIAL SQ SCH (21:03)
[2017-04-25] MEDS: SODIUM CHLORIDE 0.9% 1,000 ML IV SCH (05:14)
[2017-04-25] MEDS: HYDROmorphone 2 MG/ML 1 ML SYRINGE IVP PRN ×3 (05:45→21:01)
--- NOTE | 2017-04-25 07:23 | PN ---
PROGRESS NOTE DATE OF SERVICE: 04/24/2017 This 67-year-old woman who was admitted with bilateral leg cellulitis is being closely monitored. No chest pain. No palpitations. No fever. EXAM: Alert and oriented x3. Pulse 89, blood pressure 130/70, respiration 20, temperature 97.4, pulse ox 90% on room air. HEENT: Conjunctivae normal. NECK: No jugular venous distention. CARDIOVASCULAR: S1, S2. RESPIRATORY: Breath sounds diminished in the bases. A few scattered rhonchi. ABDOMEN: Soft. LEGS: Bilateral leg edema and leg swelling. NERVOUS SYSTEM: No focal deficits. LABS: Glucose 252, 141. WBC 13.6, sodium 133, potassium 5.6., ASSESSMENT: 1. Acute bilateral leg cellulitis with failure of outpatient treatment with Staph aureus, yeast and gram-negative bacilli. 2. Increased potassium, hyperkalemia. 3. Hyponatremia. 4. Increased WBC. 5. Atrial fibrillation. 6. History of asthma. 7. History of congestive heart failure. 8. Diabetes mellitus type 2. 9. Hypertension. 10.Metabolic encephalopathy. 11.History of carotid stenosis. 12.History of bilateral leg cellulitis. 13.History of hysterectomy. 14.Remote history of nicotine dependence. RECOMMENDATIONS AND DISCUSSION: I recommend to continue current medications, continue to monitor and symptomatic treatment. Otherwise continue the antibiotics. Vascular Surgery re-consultation. Cultures are showing Staph aureus, yeast and gram-negative bacilli. Otherwise a venous Doppler study was done which showed no evidence of DVT. Significant vascular disease suspected. Guarded prognosis because of multiple complex medical issues. Further recommendations to follow. Repeat labs have been recommended. MMODL / IJN: [id number] /
[2017-04-25 07:36] LABS: Glucose,Whole Blood 158 mg/dL (75-99)
[2017-04-25] MEDS: PANTOPRAZOLE 40 MG TABLET PO SCH (07:48)
[2017-04-25] MEDS: INSULIN ASPART 100 UNIT/ML 1 ML 10 ML VIAL SQ SCH ×7 (07:48→21:31)
[2017-04-25] MEDS: CEFEPIME 2 GM in SODIUM CHLORIDE 0.9% 50 ML IVPB SCH ×2 (07:49→20:48)
[2017-04-25] MEDS: FUROSEMIDE 10 MG/ML 4 ML VIAL IV SCH (07:49)
[2017-04-25] MEDS: FUROSEMIDE 20 MG TAB PO SCH (07:49)
[2017-04-25] MEDS: GABAPENTIN 100 MG CAP PO SCH ×2 (07:50→20:51)
[2017-04-25] MEDS: RIVAROXABAN 10 MG TAB PO SCH (07:51)
[2017-04-25] MEDS: METOPROLOL TARTRATE 50 MG TAB PO SCH ×2 (07:51→20:51)
[2017-04-25] MEDS: metFORMIN 500 MG TAB PO SCH ×2 (07:51→20:51)
[2017-04-25] MEDS: SILVER sulfADIAZINE Cream 400 GM 1 APPLIC APPLIC TOPICAL SCH ×2 (07:52→20:54)
[2017-04-25] MEDS: HYDROcodone/APAP 10-325MG 1 EACH TAB PO PRN ×4 (07:52→22:29)
[2017-04-25] MEDS: SYMBICORT 160-4.5 MCG INHALER INHALATION SCH ×2 (07:58→20:25)
[2017-04-25 08:21] LABS: Anisocytosis Moderate; Basophils # (A) 0.1 k/uL (0-0.2); Basophils % (A) 0 %; Eosinophils # (A) 0.1 k/uL (0-0.7); Eosinophils % (A) 1 %; HCT 35.5 % (34.0-46.0); HGB 9.4 gm/dL (11.4-16.0); Hypochromasia Marked; Lymphocytes # (A) 2.2 k/uL (1.0-4.8); Lymphocytes % (A) 18 %; MCH 21.3 pg (25.0-35.0); MCHC 26.5 g/dL (31.0-37.0); MCV 80.3 fL (80.0-100.0); Mean Platelet Volume 9.3; Microcytosis Slight; Monocytes # (A) 0.6 k/uL (0-1.0); Monocytes % (A) 5 %; Neutrophils % (A) 72 %; Platelet Count 153 k/uL (150-450); RBC 4.42 m/uL (3.80-5.40); RDW 21.7 % (11.5-15.5); WBC 12.5 k/uL (3.8-10.6)
[2017-04-25 08:52] LABS: Anion Gap 10 mmol/L; Blood Urea Nitrogen 33 mg/dL (7-17); Calcium 8.5 mg/dL (8.4-10.2); Carbon Dioxide 29 mmol/L (22-30); Chloride 98 mmol/L (98-107); Glucose 137 mg/dL (74-99); Potassium 3.7 mmol/L (3.5-5.1); Sodium 137 mmol/L (137-145)
[2017-04-25 11:39] LABS: Glucose,Whole Blood 175 mg/dL (75-99)
[2017-04-25 17:04] LABS: Glucose,Whole Blood 96 mg/dL (75-99)
[2017-04-25 20:50] LABS: Glucose,Whole Blood 160 mg/dL (75-99)
[2017-04-25] MEDS: ASCORBIC ACID 500 MG TAB PO SCH (20:51)
[2017-04-25] MEDS: ASPIRIN 325 MG TAB PO SCH (20:51)
[2017-04-25] MEDS: ATORVASTATIN 10 MG TAB PO SCH (20:51)
[2017-04-25] MEDS: MULTIVITAMINS, THERA 1 EACH TAB PO SCH (20:54)
[2017-04-25] MEDS: INSULIN DETEMIR 100 UNIT/ML 10 ML VIAL SQ SCH (21:31)
--- NOTE | 2017-04-25 23:17 | PN ---
PROGRESS NOTE DATE OF SERVICE: 04/25/2017 This 67-year-old woman was admitted with acute bilateral leg cellulitis with failure of outpatient treatment, had multiple organisms grown from the culture. Currently the culture showed Staph aureus, Malrene albicans and gram-negative bacilli. Staph aureus is MSSA. No chest pain. No palpitations. No fever. EXAM: Alert and oriented x2. Pulse 107, blood pressure 123/76, respirations 18, temperature 98.2, pulse ox 94% room air. HEENT: Conjunctivae normal. Oral mucosa moist. NECK: No jugular venous distention. No carotid bruits. No lymph node enlargement. CARDIOVASCULAR: S1, S2 muffled. No S3. No S4. RESPIRATORY: Breath sounds diminished in the bases. No rhonchi. No crackles. ABDOMEN: Soft. LEGS: Bilateral leg cellulitis. NERVOUS SYSTEM: No focal deficits. LABS: WBC 12.2, hemoglobin is 9.4. Accu-Cheks are noted. ASSESSMENT: 1. Acute bilateral leg cellulitis with failure of outpatient treatment with methicillin-sensitive Staphylococcus aureus and Marlene albicans as well as gram- negative bacilli from the cultures. 2. Increased potassium. Hyperkalemia present on admission. 3. Hyponatremia. 4. Increased WBC. 5. Atrial fibrillation, chronic. 6. History of congestive heart failure. 7. Diabetes mellitus type 2. 8. Hypertension. 9. History of metabolic encephalopathy. 10.History of carotid stenosis. 11.History of bilateral leg cellulitis. 12.History of hysterectomy. 13.Remote history of nicotine dependence. RECOMMENDATIONS AND DISCUSSION: Recommend to continue current medical management. Continue with monitoring and symptomatic treatment. Otherwise, continue with antibiotics. Guarded prognosis. Further recommendations to follow. MMODL / IJN: [id number] /
[2017-04-26] MEDS: SODIUM CHLORIDE 0.9% 1,000 ML IV SCH ×2 (05:12→23:11)
[2017-04-26] MEDS: HYDROcodone/APAP 10-325MG 1 EACH TAB PO PRN ×2 (06:29→12:14)
[2017-04-26 07:29] LABS: Glucose,Whole Blood 151 mg/dL (75-99)
[2017-04-26] MEDS: SYMBICORT 160-4.5 MCG INHALER INHALATION SCH ×2 (07:32→19:23)
[2017-04-26] MEDS: INSULIN ASPART 100 UNIT/ML 1 ML 10 ML VIAL SQ SCH ×7 (07:48→22:10)
[2017-04-26] MEDS: CEFEPIME 2 GM in SODIUM CHLORIDE 0.9% 50 ML IVPB SCH ×2 (07:48→22:05)
[2017-04-26] MEDS: PANTOPRAZOLE 40 MG TABLET PO SCH (07:48)
[2017-04-26] MEDS: FUROSEMIDE 10 MG/ML 4 ML VIAL IV SCH (07:49)
[2017-04-26] MEDS: FUROSEMIDE 20 MG TAB PO SCH (07:49)
[2017-04-26] MEDS: GABAPENTIN 100 MG CAP PO SCH ×2 (07:50→22:05)
[2017-04-26] MEDS: metFORMIN 500 MG TAB PO SCH ×2 (07:50→22:05)
[2017-04-26] MEDS: RIVAROXABAN 10 MG TAB PO SCH (07:50)
[2017-04-26] MEDS: METOPROLOL TARTRATE 50 MG TAB PO SCH ×2 (07:50→22:06)
[2017-04-26] MEDS: SILVER sulfADIAZINE Cream 400 GM 1 APPLIC APPLIC TOPICAL SCH ×2 (07:51→22:06)
[2017-04-26 09:00] LABS: Anisocytosis Moderate; Basophils % (A) 0 %; Eosinophils # (A) 0.1 k/uL (0-0.7); Eosinophils % (A) 1 %; HCT 35.4 % (34.0-46.0); Hypochromasia Marked; Lymphocytes % (A) 16 %; MCH 21.2 pg (25.0-35.0); MCHC 25.5 g/dL (31.0-37.0); MCV 83.1 fL (80.0-100.0); Mean Platelet Volume 7.5; Microcytosis Slight; Monocytes # (A) 0.6 k/uL (0-1.0); Monocytes % (A) 4 %; Neutrophils # (A) 9.4 k/uL (1.3-7.7); Neutrophils % (A) 75 %; Platelet Count 145 k/uL (150-450); RBC 4.26 m/uL (3.80-5.40); RDW 20.3 % (11.5-15.5); WBC 12.5 k/uL (3.8-10.6)
[2017-04-26 09:13] LABS: Anion Gap 10 mmol/L; Blood Urea Nitrogen 32 mg/dL (7-17); Calcium 8.6 mg/dL (8.4-10.2); Carbon Dioxide 29 mmol/L (22-30); Chloride 100 mmol/L (98-107); Glucose 225 mg/dL (74-99); Potassium 4.1 mmol/L (3.5-5.1); Sodium 139 mmol/L (137-145)
[2017-04-26 12:35] LABS: Glucose,Whole Blood 168 mg/dL (75-99)
[2017-04-26] MEDS: HYDROmorphone 2 MG/ML 1 ML SYRINGE IVP PRN (16:49)
[2017-04-26 17:42] LABS: Glucose,Whole Blood 118 mg/dL (75-99)
[2017-04-26 21:08] LABS: Glucose,Whole Blood 244 mg/dL (75-99)
[2017-04-26] MEDS: ATORVASTATIN 10 MG TAB PO SCH (22:04)
[2017-04-26] MEDS: ASCORBIC ACID 500 MG TAB PO SCH (22:05)
[2017-04-26] MEDS: ASPIRIN 325 MG TAB PO SCH (22:05)
[2017-04-26] MEDS: MULTIVITAMINS, THERA 1 EACH TAB PO SCH (22:06)
[2017-04-26] MEDS: INSULIN DETEMIR 100 UNIT/ML 10 ML VIAL SQ SCH (22:10)
[2017-04-27] MEDS: HYDROcodone/APAP 10-325MG 1 EACH TAB PO PRN ×2 (01:05→21:13)
[2017-04-27] MEDS: HYDROmorphone 2 MG/ML 1 ML SYRINGE IVP PRN ×3 (05:59→19:42)
[2017-04-27 07:26] LABS: Glucose,Whole Blood 151 mg/dL (75-99)
--- NOTE | 2017-04-27 07:28 | PN ---
PROGRESS NOTE DATE OF SERVICE: 04/26/2017 This is a 67-year-old woman who was admitted with acute bilateral leg cellulitis and failure for outpatient treatment with MSSA and Marlene albicans as well as gram- negative bacilli from the cultures, is being closely monitored at this time. Infectious Disease is following the patient closely. No chest pain. No palpitations. No fever. The final cultures are still pending at this time. Possible ECF rehab is being planned. PHYSICAL EXAM: Alert and oriented x3. Pulse 100, blood pressure 127/50, respiration 20, temperature 98.7 pulse ox 90% on room air. HEENT: Conjunctive normal. NECK: No jugular venous distension. CARDIOVASCULAR SYSTEM: S1, S2, muffled. RESPIRATORY: Breath sounds diminished at the bases. A few scattered rhonchi, no crackles. Abdomen is soft, nontender. LEGS: Bilateral leg edema, swelling and cellulitis. NERVOUS SYSTEM: No focal deficits. LABS: WBC 12.3, hemoglobin is 9, Accu-Cheks noted. ASSESSMENT: 1. Acute bilateral leg cellulitis with failure of outpatient treatment with possibly methicillin-susceptible Staphylococcus aureus, Marlene albicans as well as gram- negative bacilli from the cultures. 2. Increased potassium, hyperkalemia present on admission. 3. Hyponatremia. 4. Increased WBC. 5. Atrial fibrillation, chronic. 6. History of congestive heart failure. 7. Diabetes mellitus type 2. 8. Hypertension. 9. History of metabolic encephalopathy. 10.History of carotid stenosis. 11.History of bilateral leg cellulitis. 12.History of hysterectomy. 13.Remote history of nicotine dependence. RECOMMENDATION: Recommend to continue with the current management and continue with symptomatic treatment. Continue with antibiotics. Await for the final report. PT/OT evaluation, possible ECF rehab. Continue with the rest of medications. Prognosis guarded. Discussed with the patient, who understands and agrees and will follow local treatment. MMODL / IJN: [id number] /
[2017-04-27] MEDS: INSULIN ASPART 100 UNIT/ML 1 ML 10 ML VIAL SQ SCH ×7 (07:38→21:08)
[2017-04-27] MEDS: CEFEPIME 2 GM in SODIUM CHLORIDE 0.9% 50 ML IVPB SCH (07:44)
[2017-04-27] MEDS: GABAPENTIN 100 MG CAP PO SCH ×2 (07:59→20:18)
[2017-04-27] MEDS: FUROSEMIDE 10 MG/ML 4 ML VIAL IV SCH (08:00)
[2017-04-27] MEDS: FUROSEMIDE 20 MG TAB PO SCH (08:00)
[2017-04-27] MEDS: PANTOPRAZOLE 40 MG TABLET PO SCH (08:00)
[2017-04-27] MEDS: metFORMIN 500 MG TAB PO SCH ×2 (08:00→20:18)
[2017-04-27] MEDS: METOPROLOL TARTRATE 50 MG TAB PO SCH ×2 (08:01→20:17)
[2017-04-27] MEDS: SILVER sulfADIAZINE Cream 400 GM 1 APPLIC APPLIC TOPICAL SCH ×2 (08:01→20:18)
[2017-04-27] MEDS: RIVAROXABAN 10 MG TAB PO SCH (08:01)
[2017-04-27 09:08] LABS: Anion Gap 9 mmol/L; Blood Urea Nitrogen 32 mg/dL (7-17); Calcium 8.4 mg/dL (8.4-10.2); Carbon Dioxide 30 mmol/L (22-30); Chloride 99 mmol/L (98-107); Glucose 161 mg/dL (74-99); Potassium 3.8 mmol/L (3.5-5.1); Sodium 138 mmol/L (137-145)
[2017-04-27] MEDS: SYMBICORT 160-4.5 MCG INHALER INHALATION SCH ×2 (09:24→19:16)
[2017-04-27 09:42] LABS: Anisocytosis Moderate; HCT 33.7 % (34.0-46.0); HGB 8.7 gm/dL (11.4-16.0); Hypochromasia Marked; MCH 21.3 pg (25.0-35.0); MCHC 25.9 g/dL (31.0-37.0); MCV 82.3 fL (80.0-100.0); Mean Platelet Volume 7.5; Microcytosis Slight; Platelet Count 154 k/uL (150-450); RDW 20.3 % (11.5-15.5); WBC 9.7 k/uL (3.8-10.6)
[2017-04-27 12:08] LABS: Lymphocytes # (M) 1.84 k/uL (1.0-4.8); Monocytes # (M) 0.97 k/uL (0-1.0); Neutrophils # (M) 6.89 k/uL (1.3-7.7); Neutrophils % (M) 71 %; Nucleated Red Blood Cells 0 /100 WBC (0-0); Total Cells Counted 100; Toxic Granulation Present
[2017-04-27 12:09] LABS: Poikilocytosis (M) Present
[2017-04-27 12:21] LABS: Glucose,Whole Blood 189 mg/dL (75-99)
[2017-04-27 17:21] LABS: Glucose,Whole Blood 104 mg/dL (75-99)
[2017-04-27] MEDS: ATORVASTATIN 10 MG TAB PO SCH (20:17)
[2017-04-27] MEDS: ASPIRIN 325 MG TAB PO SCH (20:18)
[2017-04-27] MEDS: ASCORBIC ACID 500 MG TAB PO SCH (20:18)
[2017-04-27] MEDS: MULTIVITAMINS, THERA 1 EACH TAB PO SCH (20:18)
[2017-04-27 20:51] LABS: Glucose,Whole Blood 334 mg/dL (75-99)
[2017-04-27] MEDS ORDERED: CEFUROXIME 250 MG TAB PO SCH (21:00)
[2017-04-27] MEDS: INSULIN DETEMIR 100 UNIT/ML 10 ML VIAL SQ SCH (21:08)
--- NOTE | 2017-04-27 22:20 | P.PN ---
Subjective Progress Note Date: 04/27/17 Principal diagnosis: Lower extremity ulcers This is a 67-year-old female patient well-known to ID service as she was seen on on October admission after a fall on her left knee causing a rug burn. She underwent an I&D of the site and was then placed on Rocephin for 21 day course which she has completed and had complete healing of the left knee. She then presented on March 15 status post ablation of the vein in the right leg done by Dr. Bonilla at [facility]. 2 weeks following this she developed increased redness, sores and sloughing of the tissue. Lasix was increased but drainage became much worse with chills and she was not able to walk due to swelling and pain in her feet and thus came into [facility] emergency center for evaluation. She was treated for sepsis and septic shock secondary to bilateral cellulitis of the lower extremities complicated by acute respiratory failure, acute kidney injury, metabolic encephalopathy, right occipital stroke. Patient was eventually stabilized and discharged to [facility] on cefepime 2 g every 12 hours through April 08. Patient presented to [facility] emergency center due to increasing redness, swelling and weeping of the bilateral lower extremities. She has been afebrile with a white count of 13.6. Creatinine was 0.84 and albumin 3.3. Patient was found to be tachycardic. Wound culture was obtained that Gram stain is showing gram-positive cocci, gram-negative bacilli and budding yeast. Blood cultures status received. Patient has been admitted to the [facility] floor and started on Unasyn. She is also been seen by Dr. Taylor. Patient feels that she has had urine output but denies pain with urination. She denies any fever or chills. She states her blood sugars are running in the 200s at the senior care. She states she is using a walker but tires very easily. She also relates that she has been watching her salt intake and eating more sugar free foods. Hemoglobin A1c is at 6.6. Patient is feeling better today. Pain in her legs is improved. Has been seen by vascular surgery current plans only be for outpatient follow- up. Objective - Vital Signs Vital signs: Vital Signs Temp 97.6 F 04/27/17 15:00 Pulse 101 H 04/27/17 15:00 Resp 16 04/27/17 21:23 BP 154/70 04/27/17 15:00 Pulse Ox 95 04/27/17 15:00 Intake & Output 04/27/17 04/27/17 04/28/17 06:59 18:59 06:59 Intake Total 210 720 Balance 210 720 Weight 113 kg Intake: Intake, IV Titration 210 Amount Cefepime 2 gm In Sodium 50 Chloride 0.9% 50 ml @ 100 mls/hr IVPB Q12HR NEREIDA Rx #:[id number] Sodium Chloride 0.9% 1, 160 000 ml @ 20 mls/hr IV . Q24H NEREIDA Rx#:[id number] Oral 720 Other: Voiding Method Bedside Commode Diaper Incontinent # Voids 1 2 - Exam Gen: This is a morbidly obese 67-year-old female. She is sitting on the edge of the bed and appears to be in no acute distress. She is complaining of significant pain and burning to the bilateral lower extremities. HEENT: Head is atraumatic, normocephalic. Pupils equal, round. Sclerae is anicteric. Conjunctiva pink. Oral mucous membranes moist. No thrush noted. NECK: Supple. No JVD. No lymphadenopathy. No thyromegaly. LUNGS: Scattered wheezes. No intercostal retractions. HEART: Regular rate and rhythm. No murmur. ABDOMEN: Obese Soft. Bowel sounds are present. No masses. No tenderness. EXTREMITIES: The edema has shown marked improvement and ulcerations which are full-thickness in the bilateral lower extremities also improved. Drainage has generally resolved. Erythema has resolved. They're much less tender. No ulcers are seen. She finds a Silvadene to be very cooling. NEUROLOGICAL: Patient is awake, alert and oriented x3 - Labs CBC & Chem 7: 04/27/17 08:33 04/27/17 08:33 Labs: Abnormal Lab Results - Last 24 Hours (Table) 04/27/17 04/27/17 04/27/17 Range/Units 07:10 08:33 08:33 Hgb 8.7 L (11.4-16.0) gm/dL Hct 33.7 L (34.0-46.0) % MCH 21.3 L (25.0-35.0) pg MCHC 25.9 L (31.0-37.0) g/dL RDW 20.3 H (11.5-15.5) % BUN 32 H (7-17) mg/dL Glucose 161 H (74-99) mg/dL POC Glucose (mg/dL) 151 H (75-99) mg/dL 04/27/17 04/27/17 04/27/17 Range/Units 12:06 17:17 20:38 Hgb (11.4-16.0) gm/dL Hct (34.0-46.0) % MCH (25.0-35.0) pg MCHC (31.0-37.0) g/dL RDW (11.5-15.5) % BUN (7-17) mg/dL Glucose (74-99) mg/dL POC Glucose (mg/dL) 189 H 104 H 334 H (75-99) mg/dL Microbiology - Last 24 Hours (Table) 04/22/17 21:14 Gram Stain - Final Leg - Right Wound Culture - Final Staphylococcus aureus Marlene albicans Alcaligen. faecalis 04/23/17 08:55 Blood Culture - Preliminary Blood No Growth after 96 hours Laboratory Results WBC 9.7 k/uL (3.8-10.6) 04/27/17 08:33 RBC 4.10 m/uL (3.80-5.40) 04/27/17 08:33 Hgb 8.7 gm/dL (11.4-16.0) L 04/27/17 08:33 Hct 33.7 % (34.0-46.0) L 04/27/17 08:33 MCV 82.3 fL (80.0-100.0) 04/27/17 08:33 MCH 21.3 pg (25.0-35.0) L 04/27/17 08:33 MCHC 25.9 g/dL (31.0-37.0) L 04/27/17 08:33 RDW 20.3 % (11.5-15.5) H 04/27/17 08:33 Plt Count 154 k/uL (150-450) 04/27/17 08:33 Neutrophils % 75 % 04/26/17 08:34 Neutrophils % (Manual) 71 % 04/27/17 08:33 Lymphocytes % 16 % 04/26/17 08:34 Lymphocytes % (Manual) 19 % 04/27/17 08:33 Monocytes % 4 % 04/26/17 08:34 Monocytes % (Manual) 10 % 04/27/17 08:33 Eosinophils % 1 % 04/26/17 08:34 Basophils % 0 % 04/26/17 08:34 Neutrophils # 9.4 k/uL (1.3-7.7) H 04/26/17 08:34 Neutrophils # (Manual) 6.89 k/uL (1.3-7.7) 04/27/17 08:33 Lymphocytes # 2.0 k/uL (1.0-4.8) 04/26/17 08:34 Lymphocytes # (Manual) 1.84 k/uL (1.0-4.8) 04/27/17 08:33 Monocytes # 0.6 k/uL (0-1.0) 04/26/17 08:34 Monocytes # (Manual) 0.97 k/uL (0-1.0) 04/27/17 08:33 Eosinophils # 0.1 k/uL (0-0.7) 04/26/17 08:34 Basophils # 0.0 k/uL (0-0.2) 04/26/17 08:34 Nucleated RBCs 0 /100 WBC (0-0) 04/27/17 08:33 Manual Slide Review Performed 04/27/17 08:33 Toxic Granulation Present 04/27/17 08:33 Hypochromasia Marked 04/27/17 08:33 Poikilocytosis (manual Present 04/27/17 08:33 Anisocytosis Moderate 04/27/17 08:33 Microcytosis Slight 04/27/17 08:33 Sodium 138 mmol/L (137-145) 04/27/17 08:33 Potassium 3.8 mmol/L (3.5-5.1) 04/27/17 08:33 Chloride 99 mmol/L (98-107) 04/27/17 08:33 Carbon Dioxide 30 mmol/L (22-30) 04/27/17 08:33 Anion Gap 9 mmol/L 04/27/17 08:33 BUN 32 mg/dL (7-17) H 04/27/17 08:33 Creatinine 0.82 mg/dL (0.52-1.04) 04/27/17 08:33 Est GFR (MDRD) Af Amer >60 (>60 ml/min/1.73 sqM) 04/27/17 08:33 Est GFR (MDRD) Non-Af >60 (>60 ml/min/1.73 sqM) 04/27/17 08:33 Glucose 161 mg/dL (74-99) H 04/27/17 08:33 POC Glucose (mg/dL) 334 mg/dL (75-99) H 04/27/17 20:38 POC Glu [employer] ID Valorie Brantley 04/27/17 20:[address] Glu mg/dL 143 04/22/17 21:14 Hemoglobin A1c 6.6 % (4.0-6.0) H 04/22/17 21:14 Calcium 8.4 mg/dL (8.4-10.2) 04/27/17 08:33 Total Bilirubin 0.6 mg/dL (0.2-1.3) 04/22/17 21:14 AST 40 U/L (14-36) H 04/22/17 21:14 ALT 30 U/L (9-52) 04/22/17 21:14 Alkaline Phosphatase 67 U/L (38-126) 04/22/17 21:14 Total Protein 6.1 g/dL (6.3-8.2) L 04/22/17 21:14 Albumin 3.3 g/dL (3.5-5.0) L 04/22/17 21:14 Urine Color Light Yellow 04/23/17 20:00 Urine Appearance Clear (Clear) 04/23/17 20:00 Urine pH 5.0 (5.0-8.0) 04/23/17 20:00 Ur Specific [place] 1.007 (1.001-1.035) 04/23/17 20:00 Urine Protein Negative (Negative) 04/23/17 20:00 Urine Glucose (UA) Negative (Negative) 04/23/17 20:00 Urine Ketones Negative (Negative) 04/23/17 20:00 Urine Blood Small (Negative) H 04/23/17 20:00 Urine Nitrite Negative (Negative) 04/23/17 20:00 Urine Bilirubin Negative (Negative) 04/23/17 20:00 Urine Urobilinogen <2.0 mg/dL (<2.0) 04/23/17 20:00 Ur Leukocyte Esterase Negative (Negative) 04/23/17 20:00 Urine RBC 4 /hpf (0-5) 04/23/17 20:00 Urine WBC 1 /hpf (0-5) 04/23/17 20:00 Urine Bacteria Rare /hpf (None) H 04/23/17 20:00 Hyaline Casts 6 /lpf (0-2) H 04/23/17 20:00 Urine Mucus Rare /hpf (None) H 04/23/17 20:00 Microbiology 04/22/17 21:14 Leg - Right Gram Stain - Final 04/22/17 21:14 Leg - Right Wound Culture - Final Staphylococcus aureus Marlene albicans Alcaligen. faecalis 04/23/17 08:55 Blood Blood Culture - Preliminary No Growth after 96 hours 04/23/17 21:46 Urine,Voided Urine Culture - Final Assessment and Plan (1) Cellulitis of both lower extremities Narrative/Plan: Patient has had an extensive worsening to her lower extremities since last being seen. She is evidence of large necrotic areas that are quite painful. Her bilateral lower extremities are cool to cold with poor capillary refill and tenderness. at this time appears to have severe peripheral vascular disease with significant ischemic changes occurring to the bilateral lower extremities with extensive ulcerations. Local wound care with Silvadene can be applied which may be soothing with only Curlex being applied with no compression. vascular surgery consult is in progress. venous Dopplers are requested and defer to vascular surgery as to the workup to the arterial status, either by Doppler or by angiography. With her history of prior staphylococcal infection as well as Pseudomonas infection Cefepime is added. Prognosis is quite poor. Patient has been seen by vascular surgery. They're not believe it will perform any further interventions at this time. As far as cultures MSSA has been isolated. However now alcilgines has been isolated. Cefuroxime was transitioned to trimethoprim sulfamethoxazole to complete her course of therapy. Leg will go to extended care tomorrow. To complete her course of wound care, antibiotics and therapy. Current Visit: Yes Status: Acute Code(s): L03.115 - CELLULITIS OF RIGHT LOWER LIMB; L03.116 - CELLULITIS OF LEFT LOWER LIMB SNOMED Code(s): 677054661 (2) Diabetes mellitus type 2 in obese Current Visit: No Status: Acute Code(s): E11.69 - TYPE 2 DIABETES MELLITUS WITH OTHER SPECIFIED COMPLICATION; E66.9 - OBESITY, UNSPECIFIED SNOMED Code(s) : 76234016
[2017-04-27] MEDS: SODIUM CHLORIDE 0.9% 1,000 ML IV SCH (22:33)
[2017-04-28] MEDS: HYDROcodone/APAP 10-325MG 1 EACH TAB PO PRN ×4 (03:07→21:12)
[2017-04-28 07:30] LABS: Glucose,Whole Blood 151 mg/dL (75-99)
[2017-04-28] MEDS: INSULIN ASPART 100 UNIT/ML 1 ML 10 ML VIAL SQ SCH ×7 (07:54→21:12)
[2017-04-28] MEDS: FUROSEMIDE 10 MG/ML 4 ML VIAL IV SCH (07:55)
[2017-04-28] MEDS: GABAPENTIN 100 MG CAP PO SCH ×2 (08:01→21:06)
[2017-04-28] MEDS: metFORMIN 500 MG TAB PO SCH ×2 (08:01→21:06)
[2017-04-28] MEDS: PANTOPRAZOLE 40 MG TABLET PO SCH (08:01)
[2017-04-28] MEDS: FUROSEMIDE 20 MG TAB PO SCH (08:01)
[2017-04-28] MEDS: SULFAMETHOX-TMP 800-160MG 1 EACH TAB PO SCH ×2 (08:01→21:07)
[2017-04-28] MEDS: METOPROLOL TARTRATE 50 MG TAB PO SCH ×2 (08:02→21:06)
[2017-04-28] MEDS: RIVAROXABAN 10 MG TAB PO SCH (08:02)
[2017-04-28] MEDS: SILVER sulfADIAZINE Cream 400 GM 1 APPLIC APPLIC TOPICAL SCH ×2 (08:03→21:07)
[2017-04-28 09:06] LABS: Anion Gap 9 mmol/L; Blood Urea Nitrogen 28 mg/dL (7-17); Calcium 8.4 mg/dL (8.4-10.2); Carbon Dioxide 31 mmol/L (22-30); Chloride 98 mmol/L (98-107); Glucose 157 mg/dL (74-99); Potassium 4.7 mmol/L (3.5-5.1); Sodium 138 mmol/L (137-145)
[2017-04-28 09:10] LABS: Anisocytosis Moderate; HCT 35.3 % (34.0-46.0); HGB 9.2 gm/dL (11.4-16.0); Hypochromasia Marked; MCH 21.7 pg (25.0-35.0); MCHC 26.2 g/dL (31.0-37.0); MCV 82.7 fL (80.0-100.0); Mean Platelet Volume 8.3; Microcytosis Slight; Platelet Count 192 k/uL (150-450); RBC 4.26 m/uL (3.80-5.40); RDW 20.1 % (11.5-15.5); WBC 10.6 k/uL (3.8-10.6)
[2017-04-28] MEDS: SYMBICORT 160-4.5 MCG INHALER INHALATION SCH ×2 (09:27→19:01)
--- NOTE | 2017-04-28 10:33 | P.PN ---
Progress Note - Text Progress Note Date: 04/27/17 Addendum to Progress note for 04/26/[address] Duncan Assessment:14. Stage II Pressure Ulcer coccyx, present on admission, refer to nursing documentation/picture.
--- NOTE | 2017-04-28 10:50 | PN ---
PROGRESS NOTE DATE OF SERVICE: 04/27/2017 This is a 67-year-old woman who was admitted with acute bilateral leg cellulitis, being closely monitored. The cultures are showing Staph aureus, Marlene, and alcaligen faecalis. The Staph aureus is MSSA. No chest pain. No palpitations. No fever. PHYSICAL EXAM: Alert and oriented x2. Pulse is 94, blood pressure is 140/60, respiration 20, temperature 97.2, pulse ox 98% on 2 L. HEENT: Conjunctivae normal. NECK: No jugular venous distension. RESPIRATORY: Breath sounds diminished in the bases, a few scattered rhonchi. Abdomen is soft, nontender. LEGS: Bilateral leg edema. NERVOUS SYSTEM: No focal deficits. LABS: Noted. Accu-Cheks 104, 334, hemoglobin 8.7. ASSESSMENT: 1. Acute bilateral leg cellulitis with failure of outpatient treatment with possibly MSSA, Marlene albicans and as well as alcaligen. 2. Increase potassium, hyperkalemia present on admission. 3. Hyponatremia. 4. Increased WBC. 5. Atrial fibrillation, chronic. 6. History of congestive heart failure. 7. Diabetes mellitus type 2. 8. Hypertension. 9. History of metabolic encephalopathy. 10.History of carotid stenosis. 11.History of bilateral leg cellulitis. 12.History of hysterectomy. 13.Remote history of nicotine dependence. RECOMMENDATION: Recommend to continue with the current treatment: Continue with the antibiotics. Otherwise, closely monitor. Guarded prognosis because of multiple complex medical issues. Further recommendations to follow. MMODL / IJN: [id number] /
[2017-04-28 10:51] LABS: Eosinophils # (M) 0.11 k/uL (0-0.7); Lymphocytes # (M) 3.07 k/uL (1.0-4.8); Monocytes # (M) 0.53 k/uL (0-1.0); Neutrophils # (M) 6.89 k/uL (1.3-7.7); Neutrophils % (M) 65 %; Nucleated Red Blood Cells 0 /100 WBC (0-0); Total Cells Counted 100
[2017-04-28 10:56] LABS: Mixed Population RBC Present
[2017-04-28 10:57] LABS: Poikilocytosis (M) Present
[2017-04-28 12:01] LABS: Glucose,Whole Blood 302 mg/dL (75-99)
--- NOTE | 2017-04-28 17:38 | PN ---
PROGRESS NOTE DATE OF SERVICE: 04/28/2017 This 67-year-old woman who was admitted with bilateral leg cellulitis is being closely monitored. No chest pain. No palpitations. No fever. PHYSICAL EXAM: Alert and oriented x3. Pulse is 90. Blood pressure 116/85, respiratory rate 17, temperature 97.2, pulse ox 98% on 2 L. HEENT: Conjunctivae normal. NECK: No jugular venous distention. CARDIOVASCULAR: S1, S2 muffled. RESPIRATORY: Breath sounds diminished in the bases. A few scattered rhonchi. No crackles. ABDOMEN: Soft, nontender. Legs: Bilateral leg cellulitis and edema, swelling. Central nervous system: No focal deficits. LAB STUDIES: WBC 17, hemoglobin 10.2. Other labs are noted. ASSESSMENT: 1. Acute bilateral leg cellulitis with failure of outpatient treatment with possible MSSA Marlene albicans as well as alcaligenes. 2. Increased potassium hyperkalemia present on admission. 3. Hyponatremia. 4. Increased WBC. 5. Atrial ablation chronic. 6. History of congestive heart failure. 7. Diabetes type 2. 8. Hypertension. 9. History of metabolic encephalopathy. 10.History of carotid stenosis. 11.History of bilateral leg cellulitis. 12.Hysterectomy. 13.Remote history of nicotine dependence. DISCUSSION AND RECOMMENDATIONS: I recommend to continue current medications, management and symptomatic treatment. Otherwise, continue with the current medication, continue symptomatic treatment. Otherwise continue with antibiotics and PT/OT evaluation, possible ECF rehab. Further recommendations to follow. The patient might require preauthorization. MMODL / IJN: [id number] /
[2017-04-28 17:39] LABS: Glucose,Whole Blood 139 mg/dL (75-99)
[2017-04-28 20:56] LABS: Glucose,Whole Blood 207 mg/dL (75-99)
[2017-04-28] MEDS: MULTIVITAMINS, THERA 1 EACH TAB PO SCH (21:06)
[2017-04-28] MEDS: ASCORBIC ACID 500 MG TAB PO SCH (21:06)
[2017-04-28] MEDS: ASPIRIN 325 MG TAB PO SCH (21:06)
[2017-04-28] MEDS: ATORVASTATIN 10 MG TAB PO SCH (21:07)
[2017-04-28] MEDS: INSULIN DETEMIR 100 UNIT/ML 10 ML VIAL SQ SCH (21:12)
[2017-04-28] MEDS: SODIUM CHLORIDE 0.9% 1,000 ML IV SCH (22:54)
--- NOTE | 2017-04-28 23:38 | P.PN ---
Subjective Progress Note Date: 04/28/17 Principal diagnosis: Lower extremity ulcers This is a 67-year-old female patient well-known to ID service as she was seen on on October admission after a fall on her left knee causing a rug burn. She underwent an I&D of the site and was then placed on Rocephin for 21 day course which she has completed and had complete healing of the left knee. She then presented on March 15 status post ablation of the vein in the right leg done by Dr. Bonilla at [facility]. 2 weeks following this she developed increased redness, sores and sloughing of the tissue. Lasix was increased but drainage became much worse with chills and she was not able to walk due to swelling and pain in her feet and thus came into [facility] emergency center for evaluation. She was treated for sepsis and septic shock secondary to bilateral cellulitis of the lower extremities complicated by acute respiratory failure, acute kidney injury, metabolic encephalopathy, right occipital stroke. Patient was eventually stabilized and discharged to [facility] on cefepime 2 g every 12 hours through April 08. Patient presented to [facility] emergency center due to increasing redness, swelling and weeping of the bilateral lower extremities. She has been afebrile with a white count of 13.6. Creatinine was 0.84 and albumin 3.3. Patient was found to be tachycardic. Wound culture was obtained that Gram stain is showing gram-positive cocci, gram-negative bacilli and budding yeast. Blood cultures status received. Patient has been admitted to the [facility] floor and started on Unasyn. She is also been seen by Dr. Taylor. Patient feels that she has had urine output but denies pain with urination. She denies any fever or chills. She states her blood sugars are running in the 200s at the group home. She states she is using a walker but tires very easily. She also relates that she has been watching her salt intake and eating more sugar free foods. Hemoglobin A1c is at 6.6. Patient is feeling better today. Pain in her legs is improved. Feels the best she has in quite some time. Has been seen by vascular surgery current plans only be for outpatient follow- up. Objective - Vital Signs Vital signs: Vital Signs Temp 97.7 F 04/28/17 15:00 Pulse 90 04/28/17 15:00 Resp 17 04/28/17 22:31 BP 167/84 04/28/17 15:00 Pulse Ox 98 04/28/17 15:00 Intake & Output 04/28/17 04/28/17 04/29/17 06:59 18:59 06:59 Intake Total 480 Balance 480 Weight 113 kg 113 kg Intake: Oral 480 Other: Voiding Method Bedside Commode Bedside Commode Bedside Commode Diaper Incontinent # Voids 2 3 3 # Bowel Movements 1 1 2 - Exam Gen: This is a morbidly obese 67-year-old female. She is sitting on the edge of the bed and appears to be in no acute distress. She is complaining of significant pain and burning to the bilateral lower extremities. HEENT: Head is atraumatic, normocephalic. Pupils equal, round. Sclerae is anicteric. Conjunctiva pink. Oral mucous membranes moist. No thrush noted. NECK: Supple. No JVD. No lymphadenopathy. No thyromegaly. LUNGS: Scattered wheezes. No intercostal retractions. HEART: Regular rate and rhythm. No murmur. ABDOMEN: Obese Soft. Bowel sounds are present. No masses. No tenderness. EXTREMITIES: The edema has shown marked improvement and ulcerations which are full-thickness in the bilateral lower extremities also improved. Drainage has generally resolved. Erythema has resolved. They're much less tender. No ulcers are seen. She finds a Silvadene to be very cooling. NEUROLOGICAL: Patient is awake, alert and oriented x3 - Labs CBC & Chem 7: 04/28/17 08:18 04/28/17 08:18 Labs: Abnormal Lab Results - Last 24 Hours (Table) 04/28/17 04/28/17 04/28/17 Range/Units 07:26 08:18 08:18 Hgb 9.2 L (11.4-16.0) gm/dL MCH 21.7 L (25.0-35.0) pg MCHC 26.2 L (31.0-37.0) g/dL RDW 20.1 H (11.5-15.5) % Carbon Dioxide 31 H (22-30) mmol/L BUN 28 H (7-17) mg/dL Glucose 157 H (74-99) mg/dL POC Glucose (mg/dL) 151 H (75-99) mg/dL 04/28/17 04/28/17 04/28/17 Range/Units 11:58 16:54 20:53 Hgb (11.4-16.0) gm/dL MCH (25.0-35.0) pg MCHC (31.0-37.0) g/dL RDW (11.5-15.5) % Carbon Dioxide (22-30) mmol/L BUN (7-17) mg/dL Glucose (74-99) mg/dL POC Glucose (mg/dL) 302 H 139 H 207 H (75-99) mg/dL Microbiology - Last 24 Hours (Table) 04/23/17 08:55 Blood Culture - Preliminary Blood No Growth after 120 hours Laboratory Results WBC 10.6 k/uL (3.8-10.6) 04/28/17 08:18 RBC 4.26 m/uL (3.80-5.40) 04/28/17 08:18 Hgb 9.2 gm/dL (11.4-16.0) L 04/28/17 08:18 Hct 35.3 % (34.0-46.0) 04/28/17 08:18 MCV 82.7 fL (80.0-100.0) 04/28/17 08:18 MCH 21.7 pg (25.0-35.0) L 04/28/17 08:18 MCHC 26.2 g/dL (31.0-37.0) L 04/28/17 08:18 RDW 20.1 % (11.5-15.5) H 04/28/17 08:18 Plt Count 192 k/uL (150-450) 04/28/17 08:18 Neutrophils % 75 % 04/26/17 08:34 Neutrophils % (Manual) 65 % 04/28/17 08:18 Lymphocytes % 16 % 04/26/17 08:34 Lymphocytes % (Manual) 29 % 04/28/17 08:18 Monocytes % 4 % 04/26/17 08:34 Monocytes % (Manual) 5 % 04/28/17 08:18 Eosinophils % 1 % 04/26/17 08:34 Eosinophils % (Manual) 1 % 04/28/17 08:18 Basophils % 0 % 04/26/17 08:34 Neutrophils # 9.4 k/uL (1.3-7.7) H 04/26/17 08:34 Neutrophils # (Manual) 6.89 k/uL (1.3-7.7) 04/28/17 08:18 Lymphocytes # 2.0 k/uL (1.0-4.8) 04/26/17 08:34 Lymphocytes # (Manual) 3.07 k/uL (1.0-4.8) 04/28/17 08:18 Monocytes # 0.6 k/uL (0-1.0) 04/26/17 08:34 Monocytes # (Manual) 0.53 k/uL (0-1.0) 04/28/17 08:18 Eosinophils # 0.1 k/uL (0-0.7) 04/26/17 08:34 Eosinophils # (Manual) 0.11 k/uL (0-0.7) 04/28/17 08:18 Basophils # 0.0 k/uL (0-0.2) 04/26/17 08:34 Nucleated RBCs 0 /100 WBC (0-0) 04/28/17 08:18 Manual Slide Review Performed 04/27/17 08:33 Toxic Granulation Present 04/27/17 08:33 Dimorphic RBCs Present 04/28/17 08:18 Hypochromasia Marked 04/28/17 08:18 Poikilocytosis (manual Present 04/28/17 08:18 Anisocytosis Moderate 04/28/17 08:18 Microcytosis Slight 04/28/17 08:18 Sodium 138 mmol/L (137-145) 04/28/17 08:18 Potassium 4.7 mmol/L (3.5-5.1) 04/28/17 08:18 Chloride 98 mmol/L (98-107) 04/28/17 08:18 Carbon Dioxide 31 mmol/L (22-30) H 04/28/17 08:18 Anion Gap 9 mmol/L 04/28/17 08:18 BUN 28 mg/dL (7-17) H 04/28/17 08:18 Creatinine 0.85 mg/dL (0.52-1.04) 04/28/17 08:18 Est GFR (MDRD) Af Amer >60 (>60 ml/min/1.73 sqM) 04/28/17 08:18 Est GFR (MDRD) Non-Af >60 (>60 ml/min/1.73 sqM) 04/28/17 08:18 Glucose 157 mg/dL (74-99) H 04/28/17 08:18 POC Glucose (mg/dL) 207 mg/dL (75-99) H 04/28/17 20:53 POC Glu [employer] Manager ID Antionette Blevins 04/28/17 20:[address] Glu mg/dL 143 04/22/17 21:14 Hemoglobin A1c 6.6 % (4.0-6.0) H 04/22/17 21:14 Calcium 8.4 mg/dL (8.4-10.2) 04/28/17 08:18 Total Bilirubin 0.6 mg/dL (0.2-1.3) 04/22/17 21:14 AST 40 U/L (14-36) H 04/22/17 21:14 ALT 30 U/L (9-52) 04/22/17 21:14 Alkaline Phosphatase 67 U/L (38-126) 04/22/17 21:14 Total Protein 6.1 g/dL (6.3-8.2) L 04/22/17 21:14 Albumin 3.3 g/dL (3.5-5.0) L 04/22/17 21:14 Urine Color Light Yellow 04/23/17 20:00 Urine Appearance Clear (Clear) 04/23/17 20:00 Urine pH 5.0 (5.0-8.0) 04/23/17 20:00 Ur Specific [place] 1.007 (1.001-1.035) 04/23/17 20:00 Urine Protein Negative (Negative) 04/23/17 20:00 Urine Glucose (UA) Negative (Negative) 04/23/17 20:00 Urine Ketones Negative (Negative) 04/23/17 20:00 Urine Blood Small (Negative) H 04/23/17 20:00 Urine Nitrite Negative (Negative) 04/23/17 20:00 Urine Bilirubin Negative (Negative) 04/23/17 20:00 Urine Urobilinogen <2.0 mg/dL (<2.0) 04/23/17 20:00 Ur Leukocyte Esterase Negative (Negative) 04/23/17 20:00 Urine RBC 4 /hpf (0-5) 04/23/17 20:00 Urine WBC 1 /hpf (0-5) 04/23/17 20:00 Urine Bacteria Rare /hpf (None) H 04/23/17 20:00 Hyaline Casts 6 /lpf (0-2) H 04/23/17 20:00 Urine Mucus Rare /hpf (None) H 04/23/17 20:00 Microbiology 04/23/17 08:55 Blood Blood Culture - Preliminary No Growth after 120 hours 04/22/17 21:14 Leg - Right Gram Stain - Final 04/22/17 21:14 Leg - Right Wound Culture - Final Staphylococcus aureus Marlene albicans Alcaligen. faecalis 04/23/17 21:46 Urine,Voided Urine Culture - Final Assessment and Plan (1) Cellulitis of both lower extremities Narrative/Plan: Patient has had an extensive worsening to her lower extremities since last being seen. She is evidence of large necrotic areas that are quite painful. Her bilateral lower extremities are cool to cold with poor capillary refill and tenderness. at this time appears to have severe peripheral vascular disease with significant ischemic changes occurring to the bilateral lower extremities with extensive ulcerations. Local wound care with Silvadene can be applied which may be soothing with only Curlex being applied with no compression. vascular surgery consult is in progress. venous Dopplers are requested and defer to vascular surgery as to the workup to the arterial status, either by Doppler or by angiography. With her history of prior staphylococcal infection as well as Pseudomonas infection Cefepime was added. Prognosis is quite poor. Patient has been seen by vascular surgery. They're not believe it will perform any further interventions at this time. As far as cultures MSSA has been isolated. However now alcilgines has been isolated. Cefuroxime was transitioned to trimethoprim sulfamethoxazole to complete her course of therapy. She is tolerating this well. It appears that she will be transferred to extended care tomorrow. To complete her course of wound care, antibiotics and therapy. Current Visit: Yes Status: Acute Code(s): L03.115 - CELLULITIS OF RIGHT LOWER LIMB; L03.116 - CELLULITIS OF LEFT LOWER LIMB SNOMED Code(s): 843442808 (2) Diabetes mellitus type 2 in obese Current Visit: No Status: Acute Code(s): E11.69 - TYPE 2 DIABETES MELLITUS WITH OTHER SPECIFIED COMPLICATION; E66.9 - OBESITY, UNSPECIFIED SNOMED Code(s) : 68459305
[2017-04-29 07:03] LABS: Glucose,Whole Blood 220 mg/dL (75-99)
[2017-04-29 07:12] VITALS: BP 134/62; PULSE 87; RESP 16; TEMP 97.6
[2017-04-29] MEDS: GABAPENTIN 100 MG CAP PO SCH (07:58)
[2017-04-29] MEDS: METOPROLOL TARTRATE 50 MG TAB PO SCH (07:58)
[2017-04-29] MEDS: metFORMIN 500 MG TAB PO SCH (07:58)
[2017-04-29] MEDS: SULFAMETHOX-TMP 800-160MG 1 EACH TAB PO SCH (07:58)
[2017-04-29] MEDS: RIVAROXABAN 10 MG TAB PO SCH (07:58)
[2017-04-29] MEDS: PANTOPRAZOLE 40 MG TABLET PO SCH (07:58)
[2017-04-29] MEDS: FUROSEMIDE 10 MG/ML 4 ML VIAL IV SCH (07:58)
[2017-04-29] MEDS: SILVER sulfADIAZINE Cream 400 GM 1 APPLIC APPLIC TOPICAL SCH (07:59)
[2017-04-29] MEDS: INSULIN ASPART 100 UNIT/ML 1 ML 10 ML VIAL SQ SCH ×4 (07:59→12:38)
[2017-04-29 08:39] LABS: Anion Gap 9 mmol/L; Blood Urea Nitrogen 31 mg/dL (7-17); Calcium 8.4 mg/dL (8.4-10.2); Carbon Dioxide 30 mmol/L (22-30); Chloride 99 mmol/L (98-107); Glucose 213 mg/dL (74-99); Potassium 4.5 mmol/L (3.5-5.1); Sodium 138 mmol/L (137-145)
[2017-04-29] MEDS: SYMBICORT 160-4.5 MCG INHALER INHALATION SCH (08:48)
[2017-04-29 08:56] LABS: Anisocytosis Moderate; HGB 8.6 gm/dL (11.4-16.0); Hypochromasia Marked; MCH 20.9 pg (25.0-35.0); MCHC 26.2 g/dL (31.0-37.0); Mean Platelet Volume 8.7; Microcytosis Slight; Platelet Count 187 k/uL (150-450); RBC 4.12 m/uL (3.80-5.40); RDW 21.8 % (11.5-15.5); WBC 8.8 k/uL (3.8-10.6)
[2017-04-29 09:26] LABS: Band Neutrophils % 1 %; Basophils # (M) 0.09 k/uL (0-0.2); Lymphocytes # (M) 1.94 k/uL (1.0-4.8); Monocytes # (M) 0.44 k/uL (0-1.0); Neutrophils % (M) 71 %; Nucleated Red Blood Cells 0 /100 WBC (0-0); Poikilocytosis (M) Present; Total Cells Counted 100
[2017-04-29 12:04] LABS: Glucose,Whole Blood 131 mg/dL (75-99)
--- NOTE | 2017-04-29 13:46 | P.DS ---
Providers Date of admission: 04/22/17 23:18 Expected date of discharge: 04/29/17 Attending physician: Cyndi Mcmillan Final Diagnoses: 1. Acute bilateral leg cellulitis with failure of outpatient treatment with MSSA, Marlene albicans as well as Alcaligenes. 2. Diabetes mellitus type 2 3. Atrial fibrillation, chronic 4. History of CHF 5. Hypertension 6. History of carotid stenosis Hospital course: This is a 67-year-old female admitted with acute bilateral leg cellulitis, failure of outpatient treatment. Evaluated by infectious disease. Maintained on IV antibiotics with significant clinical improvement. Evaluated by PT OT with subacute rehab recommended at discharge. Cleared by infectious disease for discharge. Patient is being discharged to [facility] in a stable condition with guarded prognosis. Microbiology 04/23/17 08:55 Blood Blood Culture - Final No Growth after 144 hours 04/22/17 21:14 Leg - Right Gram Stain - Final 04/22/17 21:14 Leg - Right Wound Culture - Final Staphylococcus aureus Marlene albicans Alcaligen. faecalis 04/23/17 21:46 Urine,Voided Urine Culture - Final Physical exam: Cardiovascular regular S1 and S2, respiratory bilateral bases diminished, a few scattered rhonchi, abdomen soft nontender positive bowel sounds, legs bilateral leg cellulitis and edema, dressings clean dry and intact psychiatry alert and oriented times treatment affect normal with no focal deficits. The impression and plan of care has been dictated as directed. : I performed a history and examination of this patient, discussed the same with the dictator. I agree with the dictator's note ,documented as a scribe. Any additional findings or plans will be noted. Time taken: 35 minutes Consults: 04/22/17 23:18 Consult Physician Stat Consulting Provider: Arun Cortés Consult Reason/Comments: recurrent cellulitis legs Do you want consulting provider notified?: Yes, Notify in am 04/24/17 09:04 Consult Physician Routine Consulting Provider: Horacio Taylor Consult Reason/Comments: cellulitis bilateral legs Do you want consulting provider notified?: Yes Primary care physician: Sara Reilly Patient Condition at Discharge: Stable Plan - Discharge Summary Discharge Rx Participant: Yes New Discharge Prescriptions: New Sulfamethox-Tmp 800-160Mg [Bactrim DS 800-160 mg] 1 each PO BID #10 tab ALPRAZolam [Xanax] 0.25 mg PO TID PRN #20 tab PRN Reason: Anxiety SILVER sulfADIAZINE Cream [Silvadene 1% Cream] 1 applic TOPICAL BID applic INSULIN LISPRO (HumaLOG) [humaLOG] 0 unit SQ ACHS #1 vial Continue Omeprazole [PriLOSEC] 20 mg PO AC-BRKFST Aspirin 325 mg PO HS Multivitamins, Thera [Multivitamin (formulary)] 1 tab PO HS Rivaroxaban [Xarelto] 20 mg PO DAILY metFORMIN HCL 1,000 mg PO BID Ascorbic Acid [Vitamin C] 500 mg PO HS Budesonide/Formoterol Fumarate [Symbicort 160-4.5 Mcg Inhaler] 2 puff INHALATION RT-BID Bisacodyl [Dulcolax] 10 mg RECTAL DAILY PRN supp PRN Reason: Constipation Gabapentin [Neurontin] 200 mg PO BID cap Acetaminophen Tab [Tylenol] 650 mg PO Q4H PRN PRN Reason: Pain Or Fever > 100.5 Dexamethasone [Hexadrol] 4 mg PO DAILY Furosemide [Lasix] 20 mg PO DAILY Insulin Detemir [Levemir] 35 unit SQ HS Atorvastatin [Lipitor] 10 mg PO HS@2000 Metoprolol Tartrate [Lopressor] 50 mg PO BID INSULIN LISPRO (HumaLOG) [humaLOG] 10 unit SQ AC-TID Albuterol Nebulized [Ventolin Nebulized] 2.5 mg INHALATION RT-Q6H PRN PRN Reason: RESP FAILURE INSULIN LISPRO (humaLOG) [humaLOG] See Protocol SQ AC-TID PRN PRN Reason: Blood Sugar - High HYDROcodone/APAP 10-325MG [[place] 10-325] 1 tab PO Q4H PRN #20 tab PRN Reason: Pain Discharge Medication List Aspirin 325 mg PO HS 06/17/16 [History] Multivitamins, Thera [Multivitamin (formulary)] 1 tab PO HS 06/17/16 [History] Omeprazole [PriLOSEC] 20 mg PO AC-BRKFST 06/17/16 [History] Rivaroxaban [Xarelto] 20 mg PO DAILY 06/17/16 [History] metFORMIN HCL 1,000 mg PO BID 06/17/16 [History] Ascorbic Acid [Vitamin C] 500 mg PO HS 03/15/17 [History] Budesonide/Formoterol Fumarate [Symbicort 160-4.5 Mcg Inhaler] 2 puff INHALATION RT-BID 03/15/17 [History] Bisacodyl [Dulcolax] 10 mg RECTAL DAILY PRN supp 03/27/17 [Rx] Gabapentin [Neurontin] 200 mg PO BID cap 03/27/17 [Rx] Acetaminophen Tab [Tylenol] 650 mg PO Q4H PRN 04/22/17 [History] Albuterol Nebulized [Ventolin Nebulized] 2.5 mg INHALATION RT-Q6H PRN 04/22/17 [ History] Atorvastatin [Lipitor] 10 mg PO HS@199904/22/17 [History] Dexamethasone [Hexadrol] 4 mg PO DAILY 04/22/17 [History] Furosemide [Lasix] 20 mg PO DAILY 04/22/17 [History] INSULIN LISPRO (HumaLOG) [humaLOG] 10 unit SQ AC-TID 04/22/17 [History] INSULIN LISPRO (humaLOG) [humaLOG] See Protocol SQ AC-TID PRN 04/22/17 [History] Insulin Detemir [Levemir] 35 unit SQ HS 04/22/17 [History] Metoprolol Tartrate [Lopressor] 50 mg PO BID 04/22/17 [History] Sulfamethox-Tmp 800-160Mg [Bactrim DS 800-160 mg] 1 each PO BID #10 tab [Rx] ALPRAZolam [Xanax] 0.25 mg PO TID PRN #20 tab 04/29/17 [Rx] HYDROcodone/APAP 10-325MG [[place] 10-325] 1 tab PO Q4H PRN #20 tab 04/29/17 [Rx] INSULIN LISPRO (HumaLOG) [humaLOG] 0 unit SQ ACHS #1 vial 04/29/17 [Rx] SILVER sulfADIAZINE Cream [Silvadene 1% Cream] 1 applic TOPICAL BID applic 02/04 [Rx] Follow up Appointment(s)/Referral(s): [facility], [NON-STAFF] - 1 Week Sara Reilly MD [Primary Care Provider] - 3 Days Horacio Taylor MD [STAFF PHYSICIAN] - 1 Week (Wound Center) Ambulatory/Diagnostic Orders: Complete Blood Count w/diff [LAB.AMB] Location: Determined By Patient Patient Instructions/Handouts: Wound Infection (DC), Cellulitis (DC) Activity/Diet/Wound Care/Special Instructions: Antibx. as per ID Diet: Consist. Carb, 1200cc fluid restriction Wound care: Silvadene to both legs and cover Kerlix. Change dressing twice a day. Activity: Fall precautions, change positions every 2 hours while awake. Optifoam to decub on buttocks, change as needed and every 7 days. Discharge Disposition: HOME WITH HOME HEALTH SERVICES
[2017-04-29] MEDS ORDERED: GABAPENTIN 300 MG CAP PO SCH (16:00)
--- NOTE | 2017-04-29 16:33 | CDI ---
Last Revision, March 2017 Documentation Clarification Form Date: 04/29/2017 4:09:00 PM From: Smitha Vazquez Admit Date: 04/22/2017 11:18:00 PM Patient Name: Joy Mehta Visit Number: [id number] Discharge Date: ATTENTION: The Clinical Documentation Specialists (CDI) and [facility] Coding Staff appreciate your assistance in clarifying documentation. Please respond to the clarification below the line at the bottom and electronically sign. The CDI & [facility] Coding staff will review the response and follow-up if needed. Please note: Queries are made part of the Legal Health Record. If you have any questions, please contact the author of this message via ITS. Dr. Coty Duncan History/Risk Factors:. Atrial Fibrillation, Diabetes Mellitus. CHF Clinical Indicators: Present with chronic inflammation of bilateral lower extremities with leg edema. Per past medical history and your ongoing documentations CHF Is in your progress notes and discharge summary. VS/Pulse OX: 180/81 107 20 BNP: not noted Echocardiogram Results: 03/17/17 there is moderate concentric left ventricular hypertrophy. EF between 65 -70 % Chest X Ray: Chronic elevated right diaphragm, No gross heart failure. there is clearing of the pulmonary congestion compared to last exam. Stable cardiomegaly. Treatment: Lasix PO changed to IVP In your professional opinion, can you please clarify the acuity and type of CHF if known? Systolic Heart Failure: Acute Chronic Acute on Chronic Diastolic Heart Failure: Acute Chronic Acute on Chronic Systolic & Diastolic Heart Failure: Acute Chronic Acute on Chronic Heart Failure Unable to Determine Other, please specify Diastolic Heart Failure: Chronic Please continue to document in your progress notes and discharge summary in order to capture severity of illness and risk of mortality. Include clinical findings that support your diagnosis. Under Final Diagnoses; Chronic Diastolic Heart Failure MTDD
--- NOTE | 2017-05-04 16:34 | CDI ---
Documentation Clarification Form Date: 05/03/2017 12:53:00 PM From: Meenakshi Gross Phone: Admit Date: 04/22/2017 11:18:00 PM Patient Name: Joy Mehta Visit Number: [id number] Discharge Date: ATTENTION: The Clinical Documentation Specialists (CDI) and [facility] Coding Staff appreciate your assistance in clarifying documentation. Please respond to the clarification below the line at the bottom and electronically sign. The CDI & [facility] Coding staff will review the response and follow-up if needed. Please note: Queries are made part of the Legal Health Record. If you have any questions, please contact the author of this message via ITS.Dr. Coty Duncan, Patient presented with cellulitis of the lower extremities and has diabetes type 2 insulin dependent. She was treated with broad-spectrum antibiotics. Infectious disease documents PVD with ischemic changes and ulcerations. In your professional opinion, can you please clarify? Cellulitis due to and/or complicated by Diabetes Cellulitis not due to Diabetes Other, please specify Unable to determine Please continue to document in your progress notes and discharge summary in order to capture severity of illness and risk of mortality. Include clinical findings that support your diagnosis. If you have a question about this query, please contact Michelle Silver [employer] Operator at [phone] between 8am and 5pm. Cellulitis due to and/or complicated by Diabetes MTDD
== END 2017-04-29 16:33 | DRG 637 ==
LOC: EC 19:53 → 4MS4W 23:18
PROVIDERS: ADMIT Internal Medicine; ATTEND Internal Medicine
DX: E11.628 Type 2 diabetes mellitus with other skin complications (principal); G93.41 Metabolic encephalopathy; L89.322 Pressure ulcer of left buttock, stage 2; L89.312 Pressure ulcer of right buttock, stage 2; I11.0 Hypertensive heart disease with heart failure; E11.51 Type 2 diabetes mellitus with diabetic peripheral angiopathy without gangrene; I50.9 Heart failure, unspecified; E87.1 Hypo-osmolality and hyponatremia; I48.2 Chronic atrial fibrillation; E87.5 Hyperkalemia; B37.2 Candidiasis of skin and nail; L03.114 Cellulitis of left upper limb; L03.116 Cellulitis of left lower limb; L97.909 Non-pressure chronic ulcer of unspecified part of unspecified lower leg with unspecified severity; L03.115 Cellulitis of right lower limb; E66.9 Obesity, unspecified; I25.10 Atherosclerotic heart disease of native coronary artery without angina pectoris; J45.909 Unspecified asthma, uncomplicated; K21.9 Gastro-esophageal reflux disease without esophagitis; Z79.01 Long term (current) use of anticoagulants; Z79.4 Long term (current) use of insulin; Z79.51 Long term (current) use of inhaled steroids; Z79.82 Long term (current) use of aspirin; Z79.899 Other long term (current) drug therapy; Z86.73 Personal history of transient ischemic attack (TIA), and cerebral infarction without residual deficits; Z87.891 Personal history of nicotine dependence; Z90.710 Acquired absence of both cervix and uterus; Z91.81 History of falling; Z91.030 Bee allergy status; B95.61 Methicillin susceptible Staphylococcus aureus infection as the cause of diseases classified elsewhere
CPT/HCPCS: 36415; 71045; 80048; 80053; 81001; 83036; 85025; 87040; 87070; 87077; 87086; 87186; 87205; 93005; 93970; 94640; 94760; 96360; 96361; 99285

== ENCOUNTER 2017-05-07 11:52 | Inpatient (IN) | payer MEDICARE ==
[2017-05-07] MEDS ORDERED: SODIUM CHLORIDE 0.9% 1,000 ML IV STA ×4 (12:38→15:18)
--- NOTE | 2017-05-07 12:49 | ED ---
Altered Mental Status HPI - General Chief Complaint: Altered Mental Status Stated Complaint: Altered Mental State Time Seen by Provider: 05/07/17 12:20 Source: patient, EMS, RN notes reviewed, old records reviewed Mode of arrival: EMS Limitations: physical limitation - History of Present Illness Initial Comments: This is a 67-year-old female was brought in by EMS for evaluation for confusion and altered mental status. Patient states that she had low blood sugar and ask for a candy bar but was given orange juice. Her blood sugar was 52 originally. Other concern is she has lower extremity infections she saw Dr. Cortés yesterday. She really ran out of her Bactrim. She again it refilled. No current report of nausea vomiting focal weakness fevers chills or sweats. Additionally per computer science instructor report the patient had symptoms starting yesterday with the increased confusion and altered mental status. MD Complaint: altered mental status, confusion, other - Related Data Home Medications Medication Instructions Recorded Confirmed Multivitamins, Thera [Multivitamin 1 tab PO HS 06/17/16 05/07/17 (formulary)] Omeprazole [PriLOSEC] 20 mg PO AC-BRKFST 06/17/16 05/07/17 Rivaroxaban [Xarelto] 20 mg PO HS 06/17/16 05/07/17 metFORMIN HCL 1,000 mg PO BID 06/17/16 05/07/17 Ascorbic Acid [Vitamin C] 500 mg PO HS 03/15/17 05/07/17 Budesonide/Formoterol Fumarate 2 puff INHALATION RT-BID 03/15/17 05/07/17 [Symbicort 160-4.5 Mcg Inhaler] Acetaminophen Tab [Tylenol] 650 mg PO Q4H PRN 04/22/17 05/07/17 Albuterol Nebulized [Ventolin 2.5 mg INHALATION RT-Q6H PRN 04/22/17 05/07/17 Nebulized] Atorvastatin [Lipitor] 10 mg PO HS@199904/22/17 05/07/17 Furosemide [Lasix] 20 mg PO DAILY 04/22/17 05/07/17 INSULIN LISPRO (HumaLOG) [humaLOG] 10 unit SQ AC-TID 04/22/17 05/07/17 INSULIN LISPRO (humaLOG) [humaLOG] See Protocol SQ AC-TID PRN 04/22/17 05/07/17 Insulin Detemir [Levemir] 35 unit SQ HS@199904/22/17 05/07/17 Metoprolol Tartrate [Lopressor] 50 mg PO BID 04/22/17 05/07/17 Aspirin EC [Ecotrin Low Dose] 81 mg PO HS 05/07/17 05/07/17 Gabapentin [Neurontin] 200 mg PO BID 05/07/17 05/07/17 Teresa-Lanta 30 ml PO TID PRN 05/07/17 05/07/17 Menthol/Zinc Oxide [Calmoseptine 1 applic TOPICAL TID 05/07/17 05/07/17 Ointment] SILVER sulfADIAZINE Cream 1 applic TOPICAL BID 05/07/17 05/07/17 [Silvadene 1% Cream] Sulfamethox-Tmp 800-160Mg [Bactrim 1 tab PO BID 05/07/17 05/07/17 DS 800-160 mg] Previous Rx's Medication Instructions Recorded Bisacodyl [Dulcolax] 10 mg RECTAL DAILY PRN supp 03/27/17 ALPRAZolam [Xanax] 0.25 mg PO TID PRN #20 tab 04/29/17 HYDROcodone/APAP 10-325MG [[place] 1 tab PO Q4H PRN #20 tab 04/29/17 10-325] Allergies Allergy/AdvReac Type Severity Reaction Status Date / Time bee venom protein (honey bee) Allergy Swelling Verified 05/07/17 13:30 Review of Systems ROS Statement: Those systems with pertinent positive or pertinent negative responses have been documented in the HPI. ROS Other: All systems not noted in ROS Statement are negative. Past Medical History Past Medical History: Atrial Fibrillation, Asthma, Heart Failure, Diabetes Mellitus, GERD/Reflux, Hypertension Additional Past Medical History / Comment(s): Anemia, sepsis, metabolic encephalopathy, carotid artery stenosis, BL LE cellulitis, acute kidney failure. History of Any Multi-Drug Resistant Organisms: None Reported Past Surgical History: Appendectomy, Hysterectomy, Orthopedic Surgery, Tonsillectomy Additional Past Surgical History / Comment(s): Cardioversion, arthroscopy of left knee, September 2016 - cleaned left knee and left drain tube in. Past Anesthesia/Blood Transfusion Reactions: No Reported Reaction Past Psychological History: No Psychological Hx Reported Smoking Status: Former smoker Past Alcohol Use History: Occasional Past Drug Use History: Marijuana - Past Family History Mother Family Medical History: No Reported History General Exam - General Exam Comments Initial Comments: Is a well-developed well-nourished currently awake alert female Limitations: physical limitation General appearance: alert, in no apparent distress Head exam: Present: atraumatic, normocephalic, normal inspection Eye exam: Present: normal appearance, PERRL, EOMI. Absent: scleral icterus, conjunctival injection, periorbital swelling ENT exam: Present: mucous membranes dry Neck exam: Present: normal inspection. Absent: tenderness, meningismus, lymphadenopathy Respiratory exam: Present: other (Slight crackles right base with inspiration.) . Absent: respiratory distress, wheezes, rales, rhonchi, stridor Cardiovascular Exam: Present: tachycardia GI/Abdominal exam: Present: soft, normal bowel sounds. Absent: distended, tenderness, guarding, rebound, rigid Extremities exam: Present: full ROM, tenderness, normal capillary refill, other (Dressings are applied to both lower extremities the feet reveal hyperemia is evidence of black discoloration to the toes on the left.). Absent: pedal edema , joint swelling, calf tenderness Back exam: Present: normal inspection Neurological exam: Present: alert, oriented X3, CN II-XII intact Psychiatric exam: Present: normal affect, normal mood Skin exam: Present: warm, dry, normal color. Absent: intact, rash Course Vital Signs 05/07/17 05/07/17 05/07/17 12:06 13:51 14:01 Temperature 96.9 F L Pulse Rate 117 H 77 78 Respiratory 19 Rate Blood Pressure 146/69 O2 Sat by Pulse 95 Oximetry 05/07/17 14:50 Temperature Pulse Rate 134 H Respiratory 20 Rate Blood Pressure 153/65 O2 Sat by Pulse 91 L Oximetry - Reevaluation(s) Reevaluation #1: 05/07/17 15:53 I did reevaluate patient several occasions she is in no acute distress she is somewhat tachycardic. I did discuss the findings with the patient and family members several occasions. Medical Decision Making - Medical Decision Making I did discuss [employer] the patient family members and with Dr. Degroot who did come to the emergency department to see the patient. She does demonstrate hyperkalemia with renal insufficiency and dehydration. She also has evidence of cellulitis to lower extremity be elevated lactic acid is likely a combination of the above dehydration and renal insufficiency. Patient has been afebrile. - Lab Data Result diagrams: 05/07/17 13:08 05/07/17 14:00 Lab Results 05/07/17 05/07/17 05/07/17 Range/Units 13:08 13:08 13:08 WBC 12.2 H (3.8-10.6) k/uL RBC 4.47 (3.80-5.40) m/uL Hgb 9.4 L (11.4-16.0) gm/dL Hct 35.5 (34.0-46.0) % MCV 79.5 L (80.0-100.0) fL MCH 21.1 L (25.0-35.0) pg MCHC 26.5 L (31.0-37.0) g/dL RDW 21.0 H (11.5-15.5) % Plt Count 715 H D (150-450) k/uL Neutrophils % (Manual) 76 % Lymphocytes % (Manual) 15 % Monocytes % (Manual) 9 % Neutrophils # (Manual) 9.27 H (1.3-7.7) k/uL Lymphocytes # (Manual) 1.83 (1.0-4.8) k/uL Monocytes # (Manual) 1.10 H (0-1.0) k/uL Nucleated RBCs 0 (0-0) /100 WBC Manual Slide Review Performed Hypochromasia Marked Poikilocytosis (manual Present Anisocytosis Moderate Microcytosis Slight Sodium (137-145) mmol/L Potassium (3.5-5.1) mmol/L Chloride (98-107) mmol/L Carbon Dioxide (22-30) mmol/L Anion Gap mmol/L BUN (7-17) mg/dL Creatinine (0.52-1.04) mg/dL Est GFR (MDRD) Af Amer (>60 ml/min/1.73 sqM) Est GFR (MDRD) Non-Af (>60 ml/min/1.73 sqM) Glucose (74-99) mg/dL Plasma Lactic Acid Roger 3.4 H* (0.7-2.0) mmol/L Calcium (8.4-10.2) mg/dL Magnesium (1.6-2.3) mg/dL Total Bilirubin (0.2-1.3) mg/dL AST (14-36) U/L ALT (9-52) U/L Alkaline Phosphatase (38-126) U/L Ammonia 9 (<30) umol/L Total Creatine Kinase 36 (30-135) U/L CK-MB (CK-2) 2.6 H* (0.0-2.4) ng/mL CK-MB (CK-2) Rel Index 7.2 Troponin I 0.019 (0.000-0.034) ng/mL Total Protein (6.3-8.2) g/dL Albumin (3.5-5.0) g/dL 05/07/17 05/07/17 Range/Units 13:08 14:00 WBC (3.8-10.6) k/uL RBC (3.80-5.40) m/uL Hgb (11.4-16.0) gm/dL Hct (34.0-46.0) % MCV (80.0-100.0) fL MCH (25.0-35.0) pg MCHC (31.0-37.0) g/dL RDW (11.5-15.5) % Plt Count (150-450) k/uL Neutrophils % (Manual) % Lymphocytes % (Manual) % Monocytes % (Manual) % Neutrophils # (Manual) (1.3-7.7) k/uL Lymphocytes # (Manual) (1.0-4.8) k/uL Monocytes # (Manual) (0-1.0) k/uL Nucleated RBCs (0-0) /100 WBC Manual Slide Review Hypochromasia Poikilocytosis (manual Anisocytosis Microcytosis Sodium 136 L (137-145) mmol/L Potassium 7.3 H* 7.5 H* (3.5-5.1) mmol/L Chloride 100 (98-107) mmol/L Carbon Dioxide 24 (22-30) mmol/L Anion Gap 12 mmol/L BUN 34 H (7-17) mg/dL Creatinine 1.31 H (0.52-1.04) mg/dL Est GFR (MDRD) Af Amer 49 (>60 ml/min/1.73 sqM) Est GFR (MDRD) Non-Af 40 (>60 ml/min/1.73 sqM) Glucose 140 H (74-99) mg/dL Plasma Lactic Acid Roger (0.7-2.0) mmol/L Calcium 9.3 (8.4-10.2) mg/dL Magnesium 1.7 (1.6-2.3) mg/dL Total Bilirubin 0.4 (0.2-1.3) mg/dL AST 35 (14-36) U/L ALT 31 (9-52) U/L Alkaline Phosphatase 125 (38-126) U/L Ammonia (<30) umol/L Total Creatine Kinase (30-135) U/L CK-MB (CK-2) (0.0-2.4) ng/mL CK-MB (CK-2) Rel Index Troponin I (0.000-0.034) ng/mL Total Protein 6.7 (6.3-8.2) g/dL Albumin 3.2 L (3.5-5.0) g/dL - EKG Data -: EKG Interpreted by Me (Atrial fibrillation rate of 138 QRS 90 QT since QTC of 308/466 left axis de) - Radiology Data Radiology results: report reviewed (I did review the imaging no acute findings.) , image reviewed Critical Care Time Critical Care Time: Yes Critical Care Time: 31 minutes of critical care time which includes initial presentation with discussed with paramedics history physical labs x-rays reevaluation patient several occasions discussion with multiple individuals including family members patient and the admitting physician. Admission orders and documentation of the above. Disposition Clinical Impression: Hyperkalemia, Renal insufficiency syndrome, Dehydration, Cellulitis, Lactic acidosis Disposition: ADMITTED IP TO THIS HOSP Condition: Stable Referrals: Sara Reilly MD [Primary Care Provider] - 1-2 days
[2017-05-07 13:29] LABS: Anisocytosis Moderate; HCT 35.5 % (34.0-46.0); HGB 9.4 gm/dL (11.4-16.0); Hypochromasia Marked; MCH 21.1 pg (25.0-35.0); MCHC 26.5 g/dL (31.0-37.0); MCV 79.5 fL (80.0-100.0); Mean Platelet Volume 7.8; Microcytosis Slight; RBC 4.47 m/uL (3.80-5.40); WBC 12.2 k/uL (3.8-10.6)
[2017-05-07 13:30] LABS: Platelet Count 715 k/uL (150-450)
[2017-05-07 13:35] LABS: Albumin 3.2 g/dL (3.5-5.0); Calcium 9.3 mg/dL (8.4-10.2); Magnesium 1.7 mg/dL (1.6-2.3); Total Bilirubin 0.4 mg/dL (0.2-1.3); Total Protein 6.7 g/dL (6.3-8.2)
[2017-05-07 13:37] LABS: Potassium 7.3 mmol/L (3.5-5.1)
[2017-05-07] MEDS ORDERED: DEXTROSE 50%-WATER 50 ML SYRINGE IVP STA (13:41)
[2017-05-07] MEDS ORDERED: INSULIN REGULAR 100 UNIT/ML VIAL IV ONE (13:41)
[2017-05-07] MEDS ORDERED: ALBUTEROL NEBULIZED 2.5 MG/3 ML INHALATION STA (13:41)
[2017-05-07 13:44] LABS: Lymphocytes # (M) 1.83 k/uL (1.0-4.8); Neutrophils # (M) 9.27 k/uL (1.3-7.7); Neutrophils % (M) 76 %; Nucleated Red Blood Cells 0 /100 WBC (0-0); Poikilocytosis (M) Present; Total Cells Counted 100
[2017-05-07] MEDS ORDERED: HYDROmorphone 0.5 MG/0.5 ML SYRINGE IVP STA (13:47)
[2017-05-07 14:20] LABS: Troponin I 0.019 ng/mL (0.000-0.034)
[2017-05-07 14:26] LABS: Lactic Acid, Venous 3.4 mmol/L (0.7-2.0)
[2017-05-07 14:27] LABS: Creatine Kinase MB 2.6 ng/mL (0.0-2.4)
--- NOTE | 2017-05-07 14:49 | XR ---
EXAMINATION TYPE: XR chest 1V portable DATE OF EXAM: 05/07/2017 COMPARISON: 04/23/2017 HISTORY: Confusion TECHNIQUE: Single frontal view of the chest is obtained. FINDINGS: Heart size is prominent. Elevated right hemidiaphragm stable. No pneumothorax or consolida tion. No overt failure. Arthropathy of the shoulders and diffuse osteopenia IMPRESSION: No acute process.
--- NOTE | 2017-05-07 15:09 | XR ---
EXAMINATION TYPE: XR foot limited bilateral DATE OF EXAM: 05/07/2017 COMPARISON: NONE HISTORY: 67-year-old female pain, redness, nonhealing wounds, diabetes. TECHNIQUE: 2 views each side. FINDINGS: On the left, there is a 1.3 cm long metallic foreign body embedded within the lateral plantar forefoo t soft tissues at the level of the metatarsal neck. Mild degenerative change first MTP joint. Tiny ty pe I accessory navicular. Moderate-sized plantar calcaneal spur. Diffuse soft tissue swelling is note d. On the right, small to moderate-sized plantar calcaneal spur. Diffuse soft tissue swelling. Hallux va lgus deformity with bunion. No acute fracture or dislocation. IMPRESSION: 1. Left: A 1.3 cm linear metallic foreign body, possible pin/needle fragment embedded in the lateral plantar soft tissues. Diffuse soft tissue swelling. No acute osseous abnormality seen. 2. Right: Hallux valgus deformity with bunion. Diffuse soft tissue swelling. No acute osseous abnorma lity seen.
[2017-05-07] MEDS ORDERED: PIPERACILLIN-TAZOBACTAM 3.375 GM in DEXTROSE/WATER 1 50ML.BAG IVPB STA (15:49)
[2017-05-07] MEDS ORDERED: NALOXONE 0.4 MG/ML 1 ML VIAL IV PRN (15:58)
[2017-05-07] MEDS ORDERED: SODIUM CHLORIDE 0.9% 1,000 ML IV SCH (16:00)
[2017-05-07] MEDS ORDERED: GERI LANTA PO PRN (16:02)
[2017-05-07] MEDS ORDERED: BISACODYL 10 MG SUPP RECTAL PRN (16:02)
[2017-05-07] MEDS ORDERED: ACETAMINOPHEN TAB 325 MG TAB PO PRN (16:02)
[2017-05-07] MEDS ORDERED: SODIUM POLYSTYRENE SULFONATE 15 GM/60 ML BOTTLE PO ONE (16:06)
--- NOTE | 2017-05-07 17:55 | ED ---
Medical Decision Making - Medical Decision Making Patient's heart rate continues to be elevated initially thought to be secondary to medication she was given. This accommodation of the dehydration she continues to have elevated heart rate which will be placed on Cardizem. - Lab Data Result diagrams: 05/07/17 13:08 05/07/17 16:47 Lab Results 05/07/17 05/07/17 05/07/17 Range/Units 13:08 13:08 13:08 WBC 12.2 H (3.8-10.6) k/uL RBC 4.47 (3.80-5.40) m/uL Hgb 9.4 L (11.4-16.0) gm/dL Hct 35.5 (34.0-46.0) % MCV 79.5 L (80.0-100.0) fL MCH 21.1 L (25.0-35.0) pg MCHC 26.5 L (31.0-37.0) g/dL RDW 21.0 H (11.5-15.5) % Plt Count 715 H D (150-450) k/uL Neutrophils % (Manual) 76 % Lymphocytes % (Manual) 15 % Monocytes % (Manual) 9 % Neutrophils # (Manual) 9.27 H (1.3-7.7) k/uL Lymphocytes # (Manual) 1.83 (1.0-4.8) k/uL Monocytes # (Manual) 1.10 H (0-1.0) k/uL Nucleated RBCs 0 (0-0) /100 WBC Manual Slide Review Performed Hypochromasia Marked Poikilocytosis (manual Present Anisocytosis Moderate Microcytosis Slight Sodium (137-145) mmol/L Potassium (3.5-5.1) mmol/L Chloride (98-107) mmol/L Carbon Dioxide (22-30) mmol/L Anion Gap mmol/L BUN (7-17) mg/dL Creatinine (0.52-1.04) mg/dL Est GFR (MDRD) Af Amer (>60 ml/min/1.73 sqM) Est GFR (MDRD) Non-Af (>60 ml/min/1.73 sqM) Glucose (74-99) mg/dL Lactic Ac Sepsis Rflx Plasma Lactic Acid Roger 3.4 H* (0.7-2.0) mmol/L Calcium (8.4-10.2) mg/dL Magnesium (1.6-2.3) mg/dL Total Bilirubin (0.2-1.3) mg/dL AST (14-36) U/L ALT (9-52) U/L Alkaline Phosphatase (38-126) U/L Ammonia 9 (<30) umol/L Total Creatine Kinase 36 (30-135) U/L CK-MB (CK-2) 2.6 H* (0.0-2.4) ng/mL CK-MB (CK-2) Rel Index 7.2 Troponin I 0.019 (0.000-0.034) ng/mL Total Protein (6.3-8.2) g/dL Albumin (3.5-5.0) g/dL 05/07/17 05/07/17 05/07/17 Range/Units 13:08 14:00 14:26 WBC (3.8-10.6) k/uL RBC (3.80-5.40) m/uL Hgb (11.4-16.0) gm/dL Hct (34.0-46.0) % MCV (80.0-100.0) fL MCH (25.0-35.0) pg MCHC (31.0-37.0) g/dL RDW (11.5-15.5) % Plt Count (150-450) k/uL Neutrophils % (Manual) % Lymphocytes % (Manual) % Monocytes % (Manual) % Neutrophils # (Manual) (1.3-7.7) k/uL Lymphocytes # (Manual) (1.0-4.8) k/uL Monocytes # (Manual) (0-1.0) k/uL Nucleated RBCs (0-0) /100 WBC Manual Slide Review Hypochromasia Poikilocytosis (manual Anisocytosis Microcytosis Sodium 136 L (137-145) mmol/L Potassium 7.3 H* 7.5 H* (3.5-5.1) mmol/L Chloride 100 (98-107) mmol/L Carbon Dioxide 24 (22-30) mmol/L Anion Gap 12 mmol/L BUN 34 H (7-17) mg/dL Creatinine 1.31 H (0.52-1.04) mg/dL Est GFR (MDRD) Af Amer 49 (>60 ml/min/1.73 sqM) Est GFR (MDRD) Non-Af 40 (>60 ml/min/1.73 sqM) Glucose 140 H (74-99) mg/dL Lactic Ac Sepsis Rflx Y Plasma Lactic Acid Roger (0.7-2.0) mmol/L Calcium 9.3 (8.4-10.2) mg/dL Magnesium 1.7 (1.6-2.3) mg/dL Total Bilirubin 0.4 (0.2-1.3) mg/dL AST 35 (14-36) U/L ALT 31 (9-52) U/L Alkaline Phosphatase 125 (38-126) U/L Ammonia (<30) umol/L Total Creatine Kinase (30-135) U/L CK-MB (CK-2) (0.0-2.4) ng/mL CK-MB (CK-2) Rel Index Troponin I (0.000-0.034) ng/mL Total Protein 6.7 (6.3-8.2) g/dL Albumin 3.2 L (3.5-5.0) g/dL Disposition Clinical Impression: Hyperkalemia, Renal insufficiency syndrome, Dehydration, Cellulitis, Lactic acidosis, Rapid atrial fibrillation Disposition: ADMITTED IP TO THIS HOSP Condition: Stable
[2017-05-07] MEDS ORDERED: DILTIAZEM 125 MG in SODIUM CHLORIDE 0.9% 100 ML IV SCH (18:30)
[2017-05-07] MEDS: HYDROcodone/APAP 10-325MG 1 EACH TAB PO PRN (18:39)
[2017-05-07] MEDS: metFORMIN 500 MG TAB PO SCH (18:40)
[2017-05-07] MEDS: INSULIN ASPART 100 UNIT/ML 1 ML 10 ML VIAL SQ SCH ×3 (18:41→21:54)
[2017-05-07 20:52] LABS: Glucose,Whole Blood 266 mg/dL (75-99)
[2017-05-07] MEDS ORDERED: SULFAMETHOX-TMP 800-160MG 1 EACH TAB PO SCH (21:00)
[2017-05-07] MEDS ORDERED: RIVAROXABAN 10 MG TAB PO SCH (21:00)
[2017-05-07] MEDS: ALBUTEROL NEBULIZED 2.5 MG/3 ML INHALATION SCH (21:18)
[2017-05-07] MEDS: SYMBICORT 160-4.5 MCG INHALER INHALATION SCH (21:18)
--- NOTE | 2017-05-07 21:38 | P.HPIM ---
History of Present Illness H&P Date: 05/07/17 Chief Complaint: Altered mental status Patient is a 67-year-old female with a known history of chronic Atrial Fibrillation, Asthma, Heart Failure, Diabetes Mellitus, GERD/Reflux, Hypertension who was recently admitted to the hospital about 2 weeks ago for bilateral lower activity cellulitis with wound cultures growing MSSA was sent back to ER where EMS from [facility] for evaluation of confusion and altered mental status. Patient states that she had low blood sugar and ask for a candy bar but was given orange juice. Her blood sugar was 52 originally. Other concern is she has lower extremity infections she saw Dr. Cortés yesterday. She really ran out of her Bactrim. She again got it refilled. Otherwise patient says that she has not been getting Bactrim at [facility]. No current report of nausea vomiting focal weakness fevers chills or sweats. Patient was found to have hyperkalemia with potassium level 7.2. Patient was also having atrial fibrillation with rapid ventricular rate. Currently patient is more awake and oriented and has mental status is at baseline as per her daughter at bedside Review of Systems Constitutional: Patient denies any fever or chills . No generalized weakness or weight loss. Abdomen: Patient denied nausea vomiting and diarrhea and abdominal pain. Cardiovascular: Patient denies any chest pain or short of breath no palpitations. Respiratory: patient denied any cough is from production. No shortness of breath Neurologic: Confusion and altered mental status. Patient denied any numbness or tingling headache. Musculoskeletal: Patient denies any complaints of joint swelling or deformity. Skin: Negative Psychiatric: Negative Endocrine: No heat or cold intolerance. No recent weight gain. Genitourinary: No dysuria or hematuria. All other 14 point ROS negative except the above Past Medical History Past Medical History: Atrial Fibrillation, Asthma, Heart Failure, Diabetes Mellitus, GERD/Reflux, Hypertension Additional Past Medical History / Comment(s): Anemia, sepsis, metabolic encephalopathy, carotid artery stenosis, BL LE cellulitis, acute kidney failure. History of Any Multi-Drug Resistant Organisms: None Reported Past Surgical History: Appendectomy, Hysterectomy, Orthopedic Surgery, Tonsillectomy Additional Past Surgical History / Comment(s): Cardioversion, arthroscopy of left knee, September 2016 - cleaned left knee and left drain tube in. Past Anesthesia/Blood Transfusion Reactions: No Reported Reaction Past Psychological History: No Psychological Hx Reported Smoking Status: Former smoker Past Alcohol Use History: Occasional Past Drug Use History: Marijuana - Past Family History Mother Family Medical History: No Reported History Father Family Medical History: AFIB, Congestive Heart Failure (CHF), Myocardial Infarction ([place]), Renal Disease Medications and Allergies Home Medications Medication Instructions Recorded Confirmed Type Multivitamins, Thera [Multivitamin 1 tab PO HS 06/17/16 05/07/17 History (formulary)] Omeprazole [PriLOSEC] 20 mg PO AC-BRKFST 06/17/16 05/07/17 History Rivaroxaban [Xarelto] 20 mg PO HS 06/17/16 05/07/17 History metFORMIN HCL 1,000 mg PO BID 06/17/16 05/07/17 History Ascorbic Acid [Vitamin C] 500 mg PO HS 03/15/17 05/07/17 History Budesonide/Formoterol Fumarate 2 puff INHALATION RT-BID 03/15/17 05/07/17 History [Symbicort 160-4.5 Mcg Inhaler] Bisacodyl [Dulcolax] 10 mg RECTAL DAILY PRN supp 03/27/17 05/07/17 Rx Acetaminophen Tab [Tylenol] 650 mg PO Q4H PRN 04/22/17 05/07/17 History Albuterol Nebulized [Ventolin 2.5 mg INHALATION RT-Q6H PRN 04/22/17 05/07/17 History Nebulized] Atorvastatin [Lipitor] 10 mg PO HS@199904/22/17 05/07/17 History Furosemide [Lasix] 20 mg PO DAILY 04/22/17 05/07/17 History INSULIN LISPRO (HumaLOG) [humaLOG] 10 unit SQ AC-TID 04/22/17 05/07/17 History INSULIN LISPRO (humaLOG) [humaLOG] See Protocol SQ AC-TID PRN 04/22/17 05/07/17 History Insulin Detemir [Levemir] 35 unit SQ HS@199904/22/17 05/07/17 History Metoprolol Tartrate [Lopressor] 50 mg PO BID 04/22/17 05/07/17 History ALPRAZolam [Xanax] 0.25 mg PO TID PRN #20 tab 04/29/17 05/07/17 Rx HYDROcodone/APAP 10-325MG [Indian 1 tab PO Q4H PRN #20 tab 04/29/17 05/07/17 Rx 10-325] Aspirin EC [Ecotrin Low Dose] 81 mg PO HS 05/07/17 05/07/17 History Gabapentin [Neurontin] 200 mg PO BID 05/07/17 05/07/17 History Teresa-Lanta 30 ml PO TID PRN 05/07/17 05/07/17 History Menthol/Zinc Oxide [Calmoseptine 1 applic TOPICAL TID 05/07/17 05/07/17 History Ointment] SILVER sulfADIAZINE Cream 1 applic TOPICAL BID 05/07/17 05/07/17 History [Silvadene 1% Cream] Sulfamethox-Tmp 800-160Mg [Bactrim 1 tab PO BID 05/07/17 05/07/17 History DS 800-160 mg] Allergies Allergy/AdvReac Type Severity Reaction Status Date / Time bee venom protein (honey bee) Allergy Swelling Verified 05/07/17 13:30 Physical Exam Vitals: Vital Signs Temp Pulse Resp BP Pulse Ox 05/07/17 15:35 120 H 20 150/81 95 05/07/17 14:50 134 H 20 153/65 91 L 05/07/17 14:01 78 05/07/17 13:51 77 05/07/17 12:06 96.9 F L 117 H 19 146/69 95 Intake and Output 05/07/17 05/07/17 05/07/17 06:59 14:59 22:59 Other: Weight 116.12 kg Patient Weight 05/08/17 06:59 Weight 116.12 kg PHYSICAL EXAMINATION: Patient is lying in the bed comfortably, no acute distress, awake alert and oriented.. HEENT: Normocephalic. Neck is supple. Pupils reactive. Nostrils clear. Oral cavity is moist. Ears reveal no drainage. Neck reveals no JVD, carotid bruits, or thyromegaly. CHEST EXAMINATION: Trachea is central. Symmetrical expansion. Lung hernandez clear to auscultation and percussion. Diminished basally. CARDIAC: Normal S1, S2 with no gallops. No murmurs, atrial fibrillation ABDOMEN: Soft. Bowel sounds normal. No organomegaly. No abdominal bruits. Extremities: reveal no edema. No clubbing or cyanosis Neurologically awake, alert, oriented x3 with well-coordinated movements. No focal deficits noted Skin: Bilateral feet swollen and red with multiple scabbed wounds. Redness extending up to about ankle on both sides. Psychiatric: Cooperative. Nonsuicidal Musculoskeletal: No joint swelling or deformity. Normal range of motion. Results CBC & Chem 7: 05/07/17 13:08 05/07/17 16:47 Labs: Abnormal Lab Results - Last 24 Hours (Table) 05/07/17 05/07/17 05/07/17 Range/Units 13:08 13:08 13:08 WBC 12.2 H (3.8-10.6) k/uL Hgb 9.4 L (11.4-16.0) gm/dL MCV 79.5 L (80.0-100.0) fL MCH 21.1 L (25.0-35.0) pg MCHC 26.5 L (31.0-37.0) g/dL RDW 21.0 H (11.5-15.5) % Plt Count 715 H D (150-450) k/uL Neutrophils # (Manual) 9.27 H (1.3-7.7) k/uL Monocytes # (Manual) 1.10 H (0-1.0) k/uL Sodium (137-145) mmol/L Potassium (3.5-5.1) mmol/L BUN (7-17) mg/dL Creatinine (0.52-1.04) mg/dL Glucose (74-99) mg/dL Plasma Lactic Acid Roger 3.4 H* (0.7-2.0) mmol/L CK-MB (CK-2) 2.6 H* (0.0-2.4) ng/mL Albumin (3.5-5.0) g/dL 05/07/17 05/07/17 05/07/17 Range/Units 13:08 14:00 16:47 WBC (3.8-10.6) k/uL Hgb (11.4-16.0) gm/dL MCV (80.0-100.0) fL MCH (25.0-35.0) pg MCHC (31.0-37.0) g/dL RDW (11.5-15.5) % Plt Count (150-450) k/uL Neutrophils # (Manual) (1.3-7.7) k/uL Monocytes # (Manual) (0-1.0) k/uL Sodium 136 L (137-145) mmol/L Potassium 7.3 H* 7.5 H* 6.3 H* (3.5-5.1) mmol/L BUN 34 H (7-17) mg/dL Creatinine 1.31 H (0.52-1.04) mg/dL Glucose 140 H (74-99) mg/dL Plasma Lactic Acid Roger (0.7-2.0) mmol/L CK-MB (CK-2) (0.0-2.4) ng/mL Albumin 3.2 L (3.5-5.0) g/dL Assessment and Plan Assessment: Altered mental status with possible metabolic encephalopathy due to hypoglycemia and infection Severe hyperkalemia due to acute kidney injury and lactic acidosis Acute kidney injury Acute on chronic bilateral lower exudate or cellulitis with recent wound cultures growing MSSA, Marlene albicans as well as Alcaligenes Atrial fibrillation with rapid ventricular rate. Started on Cardizem drip Diabetes type 2 Chronic atrial fibrillation CHF chronic with diastolic dysfunction Hypertension history of carotid artery stenosis Obesity Microcytic anemia. Rule out iron deficiency Plan: Patient will be continued on IV hydration and monitor for fluid overload. Patient was given Kayexalate insulin and albuterol inhalation for hyper kalemia. We will continue the telemetry monitoring and follow closely. Patient was started on antibiotics in the form of Zosyn and ID has been reconsulted. We will hold Bactrim due to hyperkalemia. Further recommendations based on the clinical course. Prognosis is guarded with multiple medical problems and comorbid conditions. Time with Patient: Greater than 30
[2017-05-07] MEDS: ASPIRIN 81 MG PO SCH (21:48)
[2017-05-07] MEDS: ASCORBIC ACID 500 MG TAB PO SCH (21:48)
[2017-05-07] MEDS: ATORVASTATIN 10 MG TAB PO SCH (21:48)
[2017-05-07] MEDS: GABAPENTIN 100 MG CAP PO SCH (21:49)
[2017-05-07] MEDS: METOPROLOL TARTRATE 50 MG TAB PO SCH (21:49)
[2017-05-07] MEDS: MULTIVITAMINS, THERA 1 EACH TAB PO SCH (21:49)
[2017-05-07] MEDS: INSULIN DETEMIR 100 UNIT/ML 10 ML VIAL SQ SCH (21:54)
[2017-05-07] MEDS: MENTHOL-ZINC OXIDE OINT 113 GM TUBE TOPICAL SCH (22:19)
[2017-05-07] MEDS: cefTRIAXone IN SWFI 1,000 MG/10 ML SYRINGE IVP SCH (22:47)
[2017-05-08] MEDS: ALBUTEROL NEBULIZED 2.5 MG/3 ML INHALATION SCH ×5 (00:40→15:42)
[2017-05-08] MEDS: HYDROcodone/APAP 10-325MG 1 EACH TAB PO PRN ×4 (01:18→15:49)
[2017-05-08 02:17] LABS: Glucose,Whole Blood 126 mg/dL (75-99)
[2017-05-08 05:28] LABS: Anisocytosis Moderate; HCT 29.1 % (34.0-46.0); Hypochromasia Marked; MCH 20.7 pg (25.0-35.0); MCHC 26.1 g/dL (31.0-37.0); MCV 79.2 fL (80.0-100.0); Mean Platelet Volume 8.3; Microcytosis Slight; Platelet Count 503 k/uL (150-450); RBC 3.67 m/uL (3.80-5.40); RDW 21.1 % (11.5-15.5); WBC 7.3 k/uL (3.8-10.6)
[2017-05-08 05:33] LABS: HGB 7.6 gm/dL (11.4-16.0)
[2017-05-08 05:39] LABS: Calcium 8.2 mg/dL (8.4-10.2); Potassium 5.5 mmol/L (3.5-5.1)
[2017-05-08 06:09] LABS: Glucose,Whole Blood 96 mg/dL (75-99)
[2017-05-08 06:12] LABS: Eosinophils # (M) 0.07 k/uL (0-0.7); Lymphocytes # (M) 1.97 k/uL (1.0-4.8); Monocytes # (M) 0.73 k/uL (0-1.0); Neutrophils # (M) 4.53 k/uL (1.3-7.7); Neutrophils % (M) 62 %; Nucleated Red Blood Cells 0 /100 WBC (0-0); Total Cells Counted 100
[2017-05-08] MEDS: INSULIN ASPART 100 UNIT/ML 1 ML 10 ML VIAL SQ SCH ×7 (06:22→21:23)
[2017-05-08] MEDS: metFORMIN 500 MG TAB PO SCH ×2 (07:02→19:32)
[2017-05-08] MEDS: PANTOPRAZOLE 40 MG TABLET PO SCH (07:03)
[2017-05-08] MEDS: SYMBICORT 160-4.5 MCG INHALER INHALATION SCH ×2 (07:24→20:03)
[2017-05-08] MEDS: FUROSEMIDE 20 MG TAB PO SCH (09:17)
[2017-05-08] MEDS: METOPROLOL TARTRATE 50 MG TAB PO SCH ×2 (09:18→21:12)
[2017-05-08] MEDS: GABAPENTIN 100 MG CAP PO SCH (09:18)
[2017-05-08 12:05] LABS: Glucose,Whole Blood 85 mg/dL (75-99)
--- NOTE | 2017-05-08 14:34 | P.CONS ---
History of Present Illness - Reason for Consult Consult date: 05/08/17 Lower extremity cellulitis - History of Present Illness This is a 67-year-old female patient well-known to ID service as she was seen on on October admission after a fall on her left knee causing a rug burn. She underwent an I&D of the site and was then placed on Rocephin for 21 day course which she has completed and had complete healing of the left knee. She then presented on March 15 status post ablation of the vein in the right leg done by Dr. Bonilla at [facility]. 2 weeks following cellulitis, sepsis and septic shock, acute respiratory failure, acute kidney injury, [facility] [place] on cefepime 2 g every 12 hours through April 08. Patient presented to [facility] April 23 and was treated again for bilateral lower extremity cellulitis with cultures positive for MSSA and was discharged back to the long term on Bactrim for 5 day course. At the long term, patient developed mental status changes and was found to have a blood sugar of 52 and came back into [facility] emergency center for evaluation. She was afebrile but tachycardic. She's been started on Cardizem drip. Her white count was 12.2 and now at 7.3, hemoglobin 7.6. Potassium was initially 7.3 and now down to 5.5. Creatinine 1.3. Lactic acid 2. 9 repeat at 1.7. Blood cultures status received. Patient is noted to be still confused per she's been admitted to the selective care unit and continued on Rocephin. She underwent bilateral foot x-rays which showed a left 1.3 cm metallic foreign body in the lateral plantar soft tissue. Diffuse soft tissue swelling and no acute osseous abnormality. On the right there was bunions, diffuse soft tissue swelling and no acute osseous abnormality. Review of Systems ROS unobtainable: due to mental status All systems: negative Constitutional: Denies chills, Denies fever Eyes: denies blurred vision, denies pain Ears, nose, mouth and throat: Denies headache, Denies sore throat Cardiovascular: Denies chest pain, Denies shortness of breath Respiratory: Denies cough Gastrointestinal: Denies abdominal pain, Denies diarrhea, Denies nausea, Denies vomiting Genitourinary: Denies dysuria, Denies hematuria Musculoskeletal: Denies myalgias Integumentary: Denies pruritus, Denies rash Neurological: Denies numbness, Denies weakness Psychiatric: Denies anxiety, Denies depression Endocrine: Denies fatigue, Denies weight change Past Medical History Past Medical History: Atrial Fibrillation, Asthma, Heart Failure, Diabetes Mellitus, GERD/Reflux, Hypertension Additional Past Medical History / Comment(s): Anemia, sepsis, metabolic encephalopathy, carotid artery stenosis, BL LE cellulitis, acute kidney failure. History of Any Multi-Drug Resistant Organisms: None Reported Past Surgical History: Appendectomy, Hysterectomy, Orthopedic Surgery, Tonsillectomy Additional Past Surgical History / Comment(s): Cardioversion, arthroscopy of left knee, September 2016 - cleaned left knee and left drain tube in. Past Anesthesia/Blood Transfusion Reactions: No Reported Reaction Past Psychological History: No Psychological Hx Reported Smoking Status: Former smoker Past Alcohol Use History: Occasional Past Drug Use History: Marijuana - Past Family History Mother Family Medical History: No Reported History Father Family Medical History: AFIB, Congestive Heart Failure (CHF), Myocardial Infarction ([place]), Renal Disease Medications and Allergies Home Medications Medication Instructions Recorded Confirmed Type Multivitamins, Thera [Multivitamin 1 tab PO HS 06/17/16 05/07/17 History (formulary)] Omeprazole [PriLOSEC] 20 mg PO AC-BRKFST 06/17/16 05/07/17 History Rivaroxaban [Xarelto] 20 mg PO HS 06/17/16 05/07/17 History metFORMIN HCL 1,000 mg PO BID 06/17/16 05/07/17 History Ascorbic Acid [Vitamin C] 500 mg PO HS 03/15/17 05/07/17 History Budesonide/Formoterol Fumarate 2 puff INHALATION RT-BID 03/15/17 05/07/17 History [Symbicort 160-4.5 Mcg Inhaler] Bisacodyl [Dulcolax] 10 mg RECTAL DAILY PRN supp 03/27/17 05/07/17 Rx Acetaminophen Tab [Tylenol] 650 mg PO Q4H PRN 04/22/17 05/07/17 History Albuterol Nebulized [Ventolin 2.5 mg INHALATION RT-Q6H PRN 04/22/17 05/07/17 History Nebulized] Atorvastatin [Lipitor] 10 mg PO HS@199904/22/17 05/07/17 History Furosemide [Lasix] 20 mg PO DAILY 04/22/17 05/07/17 History INSULIN LISPRO (HumaLOG) [humaLOG] 10 unit SQ AC-TID 04/22/17 05/07/17 History INSULIN LISPRO (humaLOG) [humaLOG] See Protocol SQ AC-TID PRN 04/22/17 05/07/17 History Insulin Detemir [Levemir] 35 unit SQ HS@199904/22/17 05/07/17 History Metoprolol Tartrate [Lopressor] 50 mg PO BID 04/22/17 05/07/17 History ALPRAZolam [Xanax] 0.25 mg PO TID PRN #20 tab 04/29/17 05/07/17 Rx HYDROcodone/APAP 10-325MG [[place] 1 tab PO Q4H PRN #20 tab 04/29/17 05/07/17 Rx 10-325] Aspirin EC [Ecotrin Low Dose] 81 mg PO HS 05/07/17 05/07/17 History Gabapentin [Neurontin] 200 mg PO BID 05/07/17 05/07/17 History Teresa-Lanta 30 ml PO TID PRN 05/07/17 05/07/17 History Menthol/Zinc Oxide [Calmoseptine 1 applic TOPICAL TID 05/07/17 05/07/17 History Ointment] SILVER sulfADIAZINE Cream 1 applic TOPICAL BID 05/07/17 05/07/17 History [Silvadene 1% Cream] Sulfamethox-Tmp 800-160Mg [Bactrim 1 tab PO BID 05/07/17 05/07/17 History DS 800-160 mg] Allergies Allergy/AdvReac Type Severity Reaction Status Date / Time bee venom protein (honey bee) Allergy Swelling Verified 05/07/17 13:30 Physical Exam Vitals: Vital Signs Temp Pulse Pulse Resp BP BP Pulse Ox 05/08/17 07:47 96.4 F L 96 16 142/57 95 05/08/17 04:00 97.6 F 93 18 125/60 91 L 05/08/17 03:54 88 18 05/08/17 00:00 96.8 F L 102 H 18 111/56 95 05/07/17 20:00 97.7 F 133 H 18 135/60 05/07/17 18:34 135 H 19 145/88 98 05/07/17 15:35 120 H 20 150/81 95 05/07/17 14:50 134 H 20 153/65 91 L 05/07/17 14:01 78 05/07/17 13:51 77 05/07/17 12:06 96.9 F L 117 H 19 146/69 95 Intake and Output 05/07/17 05/08/17 05/08/17 22:59 06:59 14:59 Intake Total 910 240 Balance 910 240 Intake: Intake, IV Titration 560 Amount Diltiazem 125 mg In 35 Sodium Chloride 0.9% 100 ml @ 5 MG/HR 5 mls/hr IV .Q24H NEREIDA Rx#:[id number] Sodium Chloride 0.9% 1, 525 000 ml @ 75 mls/hr IV . [id number] STA Rx#:[id number] Oral 350 240 Other: Voiding Method Diaper Incontinent # Voids 1 Weight 110.8 kg Gen: This is a morbidly obese 67-year-old female. She is sitting on the edge of the bed and appears to be in no acute distress. HEENT: Head is atraumatic, normocephalic. Pupils equal, round. Sclerae is anicteric. Conjunctiva pink. Oral mucous membranes moist. No thrush noted. NECK: Supple. No JVD. No lymphadenopathy. No thyromegaly. LUNGS: Scattered wheezes. No intercostal retractions. HEART: Regular rate and rhythm. No murmur. ABDOMEN: Obese Soft. Bowel sounds are present. No masses. No tenderness. EXTREMITIES: Significant edema and ulcerations to bilateral lower extremities most severe on the right. NEUROLOGICAL: Patient is awake, alert and oriented x1. Cranial nerves 2 through 12 are grossly intact. Generalized weakness noted. Results Results: Laboratory Results WBC 7.3 k/uL (3.8-10.6) 05/08/17 05:10 RBC 3.67 m/uL (3.80-5.40) L 05/08/17 05:10 Hgb 7.6 gm/dL (11.4-16.0) L D 05/08/17 05:10 Hct 29.1 % (34.0-46.0) L 05/08/17 05:10 MCV 79.2 fL (80.0-100.0) L 05/08/17 05:10 MCH 20.7 pg (25.0-35.0) L 05/08/17 05:10 MCHC 26.1 g/dL (31.0-37.0) L 05/08/17 05:10 RDW 21.1 % (11.5-15.5) H 05/08/17 05:10 Plt Count 503 k/uL (150-450) H 05/08/17 05:10 Neutrophils % (Manual) 62 % 05/08/17 05:10 Lymphocytes % (Manual) 27 % 05/08/17 05:10 Monocytes % (Manual) 10 % 05/08/17 05:10 Eosinophils % (Manual) 1 % 05/08/17 05:10 Neutrophils # (Manual) 4.53 k/uL (1.3-7.7) 05/08/17 05:10 Lymphocytes # (Manual) 1.97 k/uL (1.0-4.8) 05/08/17 05:10 Monocytes # (Manual) 0.73 k/uL (0-1.0) 05/08/17 05:10 Eosinophils # (Manual) 0.07 k/uL (0-0.7) 05/08/17 05:10 Nucleated RBCs 0 /100 WBC (0-0) 05/08/17 05:10 Manual Slide Review Performed 05/08/17 05:10 Hypochromasia Marked 05/08/17 05:10 Poikilocytosis (manual Present 05/07/17 13:08 Anisocytosis Moderate 05/08/17 05:10 Microcytosis Slight 05/08/17 05:10 Sodium 136 mmol/L (137-145) L 05/08/17 05:10 Potassium 5.5 mmol/L (3.5-5.1) H 05/08/17 05:10 Chloride 103 mmol/L (98-107) 05/08/17 05:10 Carbon Dioxide 26 mmol/L (22-30) 05/08/17 05:10 Anion Gap 7 mmol/L 05/08/17 05:10 BUN 27 mg/dL (7-17) H 05/08/17 05:10 Creatinine 1.30 mg/dL (0.52-1.04) H 05/08/17 05:10 Est GFR (MDRD) Af Amer 50 (>60 ml/min/1.73 sqM) 05/08/17 05:10 Est GFR (MDRD) Non-Af 41 (>60 ml/min/1.73 sqM) 05/08/17 05:10 Glucose 92 mg/dL (74-99) 05/08/17 05:10 POC Glucose (mg/dL) 85 mg/dL (75-99) 05/08/17 12:03 POC Glu Rn [employer] Nasrin Cobian 05/08/17 12:03 Lactic Ac Sepsis Rflx Y 05/07/17 23:45 Plasma Lactic Acid Roger 1.7 mmol/L (0.7-2.0) 05/08/17 05:10 Calcium 8.2 mg/dL (8.4-10.2) L 05/08/17 05:10 Magnesium 1.7 mg/dL (1.6-2.3) 05/07/17 13:08 Total Bilirubin 0.4 mg/dL (0.2-1.3) 05/07/17 13:08 AST 35 U/L (14-36) 05/07/17 13:08 ALT 31 U/L (9-52) 05/07/17 13:08 Alkaline Phosphatase 125 U/L (38-126) 05/07/17 13:08 Ammonia 9 umol/L (<30) 05/07/17 13:08 Total Creatine Kinase 36 U/L (30-135) 05/07/17 13:08 CK-MB (CK-2) 2.6 ng/mL (0.0-2.4) H* 05/07/17 13:08 CK-MB (CK-2) Rel Index 7.2 05/07/17 13:08 Troponin I 0.019 ng/mL (0.000-0.034) 05/07/17 13:08 Total Protein 6.7 g/dL (6.3-8.2) 05/07/17 13:08 Albumin 3.2 g/dL (3.5-5.0) L 05/07/17 13:08 CBC & Chem 7: 05/08/17 05:10 05/08/17 05:10 Labs: Abnormal Lab Results - Last 24 Hours (Table) 05/07/17 05/07/17 05/07/17 Range/Units 13:08 13:08 13:08 WBC 12.2 H (3.8-10.6) k/uL RBC (3.80-5.40) m/uL Hgb 9.4 L (11.4-16.0) gm/dL Hct (34.0-46.0) % MCV 79.5 L (80.0-100.0) fL MCH 21.1 L (25.0-35.0) pg MCHC 26.5 L (31.0-37.0) g/dL RDW 21.0 H (11.5-15.5) % Plt Count 715 H D (150-450) k/uL Neutrophils # (Manual) 9.27 H (1.3-7.7) k/uL Monocytes # (Manual) 1.10 H (0-1.0) k/uL Sodium (137-145) mmol/L Potassium (3.5-5.1) mmol/L BUN (7-17) mg/dL Creatinine (0.52-1.04) mg/dL Glucose (74-99) mg/dL POC Glucose (mg/dL) (75-99) mg/dL Plasma Lactic Acid Roger 3.4 H* (0.7-2.0) mmol/L Calcium (8.4-10.2) mg/dL CK-MB (CK-2) 2.6 H* (0.0-2.4) ng/mL Albumin (3.5-5.0) g/dL 05/07/17 05/07/17 05/07/17 Range/Units 13:08 14:00 16:47 WBC (3.8-10.6) k/uL RBC (3.80-5.40) m/uL Hgb (11.4-16.0) gm/dL Hct (34.0-46.0) % MCV (80.0-100.0) fL MCH (25.0-35.0) pg MCHC (31.0-37.0) g/dL RDW (11.5-15.5) % Plt Count (150-450) k/uL Neutrophils # (Manual) (1.3-7.7) k/uL Monocytes # (Manual) (0-1.0) k/uL Sodium 136 L (137-145) mmol/L Potassium 7.3 H* 7.5 H* 6.3 H* (3.5-5.1) mmol/L BUN 34 H (7-17) mg/dL Creatinine 1.31 H (0.52-1.04) mg/dL Glucose 140 H (74-99) mg/dL POC Glucose (mg/dL) (75-99) mg/dL Plasma Lactic Acid Roger (0.7-2.0) mmol/L Calcium (8.4-10.2) mg/dL CK-MB (CK-2) (0.0-2.4) ng/mL Albumin 3.2 L (3.5-5.0) g/dL 05/07/17 05/07/17 05/07/17 Range/Units 18:46 20:51 23:24 WBC (3.8-10.6) k/uL RBC (3.80-5.40) m/uL Hgb (11.4-16.0) gm/dL Hct (34.0-46.0) % MCV (80.0-100.0) fL MCH (25.0-35.0) pg MCHC (31.0-37.0) g/dL RDW (11.5-15.5) % Plt Count (150-450) k/uL Neutrophils # (Manual) (1.3-7.7) k/uL Monocytes # (Manual) (0-1.0) k/uL Sodium (137-145) mmol/L Potassium (3.5-5.1) mmol/L BUN (7-17) mg/dL Creatinine (0.52-1.04) mg/dL Glucose (74-99) mg/dL POC Glucose (mg/dL) 266 H (75-99) mg/dL Plasma Lactic Acid Roger 3.4 H* 2.9 H* (0.7-2.0) mmol/L Calcium (8.4-10.2) mg/dL CK-MB (CK-2) (0.0-2.4) ng/mL Albumin (3.5-5.0) g/dL 05/08/17 05/08/17 05/08/17 Range/Units 02:15 05:10 05:10 WBC (3.8-10.6) k/uL RBC 3.67 L (3.80-5.40) m/uL Hgb 7.6 L D (11.4-16.0) gm/dL Hct 29.1 L (34.0-46.0) % MCV 79.2 L (80.0-100.0) fL MCH 20.7 L (25.0-35.0) pg MCHC 26.1 L (31.0-37.0) g/dL RDW 21.1 H (11.5-15.5) % Plt Count 503 H (150-450) k/uL Neutrophils # (Manual) (1.3-7.7) k/uL Monocytes # (Manual) (0-1.0) k/uL Sodium 136 L (137-145) mmol/L Potassium 5.5 H (3.5-5.1) mmol/L BUN 27 H (7-17) mg/dL Creatinine 1.30 H (0.52-1.04) mg/dL Glucose (74-99) mg/dL POC Glucose (mg/dL) 126 H (75-99) mg/dL Plasma Lactic Acid Roger (0.7-2.0) mmol/L Calcium 8.2 L (8.4-10.2) mg/dL CK-MB (CK-2) (0.0-2.4) ng/mL Albumin (3.5-5.0) g/dL Assessment and Plan Plan: This is a 67-year-old female who presented to the hospital with significant bilateral lower extremity cellulitis with ulcerations. Patient is currently on Rocephin and most recent wound culture from previous admission was MSSA. Local wound care will be addressed. Continue supportive care. Patient will need tight glucose control. Will follow cultures. Further recommendations as patient progresses. The above dictated assessment and findings were discussed with Dr. Cortés. The impression and plan of care have been directed as dictated. Anupama Perales nurse practitioner acting as scribe for Dr. Cortés.
[2017-05-08] MEDS ORDERED: ALBUTEROL NEBULIZED 2.5 MG/3 ML INHALATION PRN (15:51)
[2017-05-08] MEDS: MENTHOL-ZINC OXIDE OINT 113 GM TUBE TOPICAL SCH ×3 (16:09→21:23)
[2017-05-08 17:06] LABS: Glucose,Whole Blood 126 mg/dL (75-99)
--- NOTE | 2017-05-08 18:20 | P.CON ---
Consult Note - . Consult date: 05/08/17 Assessment/Plan:: This is a 67-year-old female patient well-known to ID service as she was seen on on October admission after a fall on her left knee causing a rug burn. She underwent an I&D of the site and was then placed on Rocephin for 21 day course which she has completed and had complete healing of the left knee. She then presented on March 15 status post ablation of the vein in the right leg done by Dr. Bonilla at [facility]. 2 weeks following cellulitis, sepsis and septic shock, acute respiratory failure, [facility] 2 g every 12 hours through April 08. Patient presented to [facility] April 23 and was treated again for bilateral lower extremity cellulitis with cultures positive for MSSA and was discharged back to the group home on Bactrim for 5 day course. At the group home, patient developed mental status changes and was found to have a blood sugar of 52 and came back into [facility] emergency center for evaluation. She was afebrile but tachycardic. She's been started on Cardizem drip. Her white count was 12.2 and now at 7.3, hemoglobin 7.6. Potassium was initially 7.3 and now down to 5.5. Creatinine 1.3. Lactic acid 2. 9 repeat at 1.7. Blood cultures status received. Patient is noted to be still confused per she's been admitted to the selective care unit and continued on Rocephin. She underwent bilateral foot x-rays which showed a left 1.3 cm metallic foreign body in the lateral plantar soft tissue. Diffuse soft tissue swelling and no acute osseous abnormality. On the right there was bunions, diffuse soft tissue swelling and no acute osseous abnormality. Please see the consult note as dictated by nurse practitioner Mrs. Anupama Perales. It is noted patient was seen in the office doing quite well. Now is evidence of the marked increasing amount of pain to her lower extremities. At admission she was ill with evidence of the lactic acidosis, increased creatinine and increased potassium. It is possible the acute kidney injury was responsible for the lactic acidosis rather than sepsis. She's now been treated and is doing somewhat better but still has significant intermittent confusion and complaints of severe pain to her legs. He does appear that the trimethoprim sulfamethoxazole was likely etiology for the elevated potassium and transient acute renal failure. We'll need to avoid in the future. For antimicrobial therapy Rocephin is being utilized. Silvadene for lower extremity treatment of the extensive ulcerations that has been showing some marked improvement with this treatment. The gabapentin will be increased to 3 times a day attempts to improve her severe pain syndrome. Family relates that at time of discharge she' ll going to home rather than back to extended care. Cultures are being monitored and will need to have home care arranged at discharge for the ongoing care to her limbs. I agree with evaluation, assessment and plan as dictated by nurse practitioner Mrs. Anupama Perales.
[2017-05-08] MEDS: GABAPENTIN 300 MG CAP PO SCH ×2 (19:34→21:20)
[2017-05-08 21:02] LABS: Glucose,Whole Blood 205 mg/dL (75-99)
[2017-05-08] MEDS: ASCORBIC ACID 500 MG TAB PO SCH (21:11)
[2017-05-08] MEDS: ASPIRIN 81 MG PO SCH (21:11)
[2017-05-08] MEDS: ATORVASTATIN 10 MG TAB PO SCH (21:11)
[2017-05-08] MEDS: MULTIVITAMINS, THERA 1 EACH TAB PO SCH (21:11)
[2017-05-08] MEDS: RIVAROXABAN 15 MG TAB PO SCH (21:12)
[2017-05-08] MEDS: cefTRIAXone IN SWFI 1,000 MG/10 ML SYRINGE IVP SCH (21:19)
[2017-05-08] MEDS: INSULIN DETEMIR 100 UNIT/ML 10 ML VIAL SQ SCH (21:23)
--- NOTE | 2017-05-08 22:45 | P.PN ---
Subjective Progress Note Date: 05/08/17 Principal diagnosis: Bilateral lower extremity cellulitis and hyperkalemia Patient is a 67-year-old female with a known history of chronic Atrial Fibrillation, Asthma, Heart Failure, Diabetes Mellitus, GERD/Reflux, Hypertension who was recently admitted to the hospital about 2 weeks ago for bilateral lower activity cellulitis with wound cultures growing MSSA was sent back to ER where EMS from extended care facility for evaluation of confusion and altered mental status. Patient states that she had low blood sugar and ask for a candy bar but was given orange juice. Her blood sugar was 52 originally. Other concern is she has lower extremity infections she saw Dr. Cortés yesterday. She really ran out of her Bactrim. She again got it refilled. Otherwise patient says that she has not been getting Bactrim at [facility]. No current report of nausea vomiting focal weakness fevers chills or sweats. Patient was found to have hyperkalemia with potassium level 7.2. Patient was also having atrial fibrillation with rapid ventricular rate. Currently patient is more awake and oriented and has mental status is at baseline as per her daughter at bedside. 05/08/2017 Patient's bilateral lower activity redness is much improved now. Wound cultures were sent. Patient was started on ceftriaxone as per ID recommendations. Hypokalemia improved. Heart rate is controlled. Cardizem drip has been discontinued. Otherwise no fever no chills. Patient mental status improved as well. Lactic acidosis resolved. Patient's hemoglobin dropped to 7.6 today. Patient will be given 1 unit of PRBC. All other review of systems negative except the above Current medications reviewed. Objective - Vital Signs Vital signs: Vital Signs Temp 98.1 F 05/08/17 11:17 Pulse 86 05/08/17 11:19 Resp 18 05/08/17 11:17 BP 112/55 05/08/17 11:17 Pulse Ox 95 05/08/17 11:17 Intake & Output 05/07/17 05/08/17 05/08/17 18:59 06:59 18:59 Intake Total 910 480 Balance 910 480 Weight 116.12 kg 110.8 kg 110.8 kg Intake: Intake, IV Titration 560 Amount Diltiazem 125 mg In 35 Sodium Chloride 0.9% 100 ml @ 5 MG/HR 5 mls/hr IV .Q24H [facility] Rx#:[id number] Sodium Chloride 0.9% 1, 525 000 ml @ 75 mls/hr IV . [id number] [facility] Rx#:[id number] Oral 350 480 Other: Voiding Method Diaper Diaper Incontinent Incontinent # Voids 1 1 - Exam Patient is lying in the bed comfortably, no acute distress, awake alert and oriented.. HEENT: Normocephalic. Neck is supple. Pupils reactive. Nostrils clear. Oral cavity is moist. Ears reveal no drainage. Neck reveals no JVD, carotid bruits, or thyromegaly. CHEST EXAMINATION: Trachea is central. Symmetrical expansion. Lung hernandez clear to auscultation and percussion. Diminished basally. CARDIAC: Normal S1, S2 with no gallops. No murmurs, atrial fibrillation ABDOMEN: Soft. Bowel sounds normal. No organomegaly. No abdominal bruits. Extremities: reveal no edema. No clubbing or cyanosis Neurologically awake, alert, oriented x3 with well-coordinated movements. No focal deficits noted Skin: Bilateral feet swollen and red with multiple scabbed wounds. Redness extending up to about ankle on both sides. Redness improved. Psychiatric: Cooperative. Nonsuicidal Musculoskeletal: No joint swelling or deformity. Normal range of motion. - Labs CBC & Chem 7: 05/08/17 05:10 05/08/17 05:10 Labs: Abnormal Lab Results - Last 24 Hours (Table) 05/07/17 05/07/17 05/07/17 Range/Units 16:47 18:46 20:51 RBC (3.80-5.40) m/uL Hgb (11.4-16.0) gm/dL Hct (34.0-46.0) % MCV (80.0-100.0) fL MCH (25.0-35.0) pg MCHC (31.0-37.0) g/dL RDW (11.5-15.5) % Plt Count (150-450) k/uL Sodium (137-145) mmol/L Potassium 6.3 H* (3.5-5.1) mmol/L BUN (7-17) mg/dL Creatinine (0.52-1.04) mg/dL POC Glucose (mg/dL) 266 H (75-99) mg/dL Plasma Lactic Acid Roger 3.4 H* (0.7-2.0) mmol/L Calcium (8.4-10.2) mg/dL 05/07/17 05/08/17 05/08/17 Range/Units 23:24 02:15 05:10 RBC 3.67 L (3.80-5.40) m/uL Hgb 7.6 L D (11.4-16.0) gm/dL Hct 29.1 L (34.0-46.0) % MCV 79.2 L (80.0-100.0) fL MCH 20.7 L (25.0-35.0) pg MCHC 26.1 L (31.0-37.0) g/dL RDW 21.1 H (11.5-15.5) % Plt Count 503 H (150-450) k/uL Sodium (137-145) mmol/L Potassium (3.5-5.1) mmol/L BUN (7-17) mg/dL Creatinine (0.52-1.04) mg/dL POC Glucose (mg/dL) 126 H (75-99) mg/dL Plasma Lactic Acid Roger 2.9 H* (0.7-2.0) mmol/L Calcium (8.4-10.2) mg/dL 05/08/17 Range/Units 05:10 RBC (3.80-5.40) m/uL Hgb (11.4-16.0) gm/dL Hct (34.0-46.0) % MCV (80.0-100.0) fL MCH (25.0-35.0) pg MCHC (31.0-37.0) g/dL RDW (11.5-15.5) % Plt Count (150-450) k/uL Sodium 136 L (137-145) mmol/L Potassium 5.5 H (3.5-5.1) mmol/L BUN 27 H (7-17) mg/dL Creatinine 1.30 H (0.52-1.04) mg/dL POC Glucose (mg/dL) (75-99) mg/dL Plasma Lactic Acid Roger (0.7-2.0) mmol/L Calcium 8.2 L (8.4-10.2) mg/dL Assessment and Plan Assessment: Altered mental status with possible metabolic encephalopathy due to hypoglycemia and infection. Improved. Severe hyperkalemia due to acute kidney injury and lactic acidosis. Resolved Acute kidney injury Acute on chronic bilateral lower exudate or cellulitis with recent wound cultures growing MSSA, Marlene albicans as well as Alcaligenes Atrial fibrillation with rapid ventricular rate. Started on Cardizem drip. Rate controlled. DC'd Cardizem drip. Continue with beta blockers. Diabetes type 2 Chronic atrial fibrillation CHF chronic with diastolic dysfunction Hypertension history of carotid artery stenosis Obesity Microcytic anemia. Rule out iron deficiency Plan: Patient will be continued on antibiotics in the form of ceftriaxone. Continue with metoprolol. Follow-up renal function. Continue with other home medications. Further recommendations based on the clinical course. Prognosis is guarded with multiple medical problems and comorbid conditions. Time with Patient: Greater than 30
[2017-05-09 02:38] LABS: Glucose,Whole Blood 204 mg/dL (75-99)
[2017-05-09 05:59] LABS: Glucose,Whole Blood 204 mg/dL (75-99)
[2017-05-09 06:48] LABS: Anisocytosis Slight; HCT 33.5 % (34.0-46.0); HGB 8.6 gm/dL (11.4-16.0); Hypochromasia Marked; MCH 20.8 pg (25.0-35.0); MCHC 25.6 g/dL (31.0-37.0); MCV 81.3 fL (80.0-100.0); Mean Platelet Volume 6.8; Microcytosis Slight; Platelet Count 724 k/uL (150-450); RBC 4.13 m/uL (3.80-5.40); RDW 19.2 % (11.5-15.5); WBC 9.7 k/uL (3.8-10.6)
[2017-05-09 06:56] LABS: Anion Gap 9 mmol/L; Blood Urea Nitrogen 21 mg/dL (7-17); Calcium 9.1 mg/dL (8.4-10.2); Carbon Dioxide 24 mmol/L (22-30); Chloride 103 mmol/L (98-107); Glucose 170 mg/dL (74-99); Potassium 5.3 mmol/L (3.5-5.1); Sodium 136 mmol/L (137-145)
[2017-05-09] MEDS: metFORMIN 500 MG TAB PO SCH ×2 (07:06→17:26)
[2017-05-09] MEDS: PANTOPRAZOLE 40 MG TABLET PO SCH (07:06)
[2017-05-09] MEDS: INSULIN ASPART 100 UNIT/ML 1 ML 10 ML VIAL SQ SCH ×7 (07:07→22:12)
[2017-05-09 07:18] LABS: Lymphocytes # (M) 2.04 k/uL (1.0-4.8); Monocytes # (M) 0.58 k/uL (0-1.0); Neutrophils # (M) 7.08 k/uL (1.3-7.7); Neutrophils % (M) 73 %; Nucleated Red Blood Cells 0 /100 WBC (0-0); Total Cells Counted 100
[2017-05-09] MEDS: MENTHOL-ZINC OXIDE OINT 113 GM TUBE TOPICAL SCH ×3 (08:58→22:16)
[2017-05-09] MEDS: GABAPENTIN 300 MG CAP PO SCH ×3 (08:58→20:51)
[2017-05-09] MEDS: FUROSEMIDE 20 MG TAB PO SCH (08:58)
[2017-05-09] MEDS: METOPROLOL TARTRATE 50 MG TAB PO SCH ×2 (08:59→20:51)
[2017-05-09] MEDS: HYDROcodone/APAP 10-325MG 1 EACH TAB PO PRN ×3 (09:01→17:14)
[2017-05-09] MEDS: SYMBICORT 160-4.5 MCG INHALER INHALATION SCH ×2 (10:06→20:38)
[2017-05-09] MEDS: ALPRAZolam 0.25 MG TAB PO PRN (10:51)
[2017-05-09 11:58] LABS: Glucose,Whole Blood 118 mg/dL (75-99)
[2017-05-09 16:38] LABS: Glucose,Whole Blood 223 mg/dL (75-99)
[2017-05-09 20:34] LABS: Glucose,Whole Blood 171 mg/dL (75-99)
[2017-05-09] MEDS: ASPIRIN 81 MG PO SCH (20:51)
[2017-05-09] MEDS: RIVAROXABAN 15 MG TAB PO SCH (20:51)
[2017-05-09] MEDS: ASCORBIC ACID 500 MG TAB PO SCH (20:51)
[2017-05-09] MEDS: MULTIVITAMINS, THERA 1 EACH TAB PO SCH (20:51)
[2017-05-09] MEDS: ATORVASTATIN 10 MG TAB PO SCH (20:51)
[2017-05-09] MEDS: cefTRIAXone IN SWFI 1,000 MG/10 ML SYRINGE IVP SCH (22:08)
[2017-05-09] MEDS: INSULIN DETEMIR 100 UNIT/ML 10 ML VIAL SQ SCH (22:12)
[2017-05-10 05:38] LABS: Glucose,Whole Blood 119 mg/dL (75-99)
[2017-05-10] MEDS: INSULIN ASPART 100 UNIT/ML 1 ML 10 ML VIAL SQ SCH ×7 (06:53→21:05)
[2017-05-10] MEDS: PANTOPRAZOLE 40 MG TABLET PO SCH (06:54)
[2017-05-10] MEDS: metFORMIN 500 MG TAB PO SCH ×2 (06:54→17:59)
[2017-05-10] MEDS: FUROSEMIDE 20 MG TAB PO SCH (08:32)
[2017-05-10] MEDS: METOPROLOL TARTRATE 50 MG TAB PO SCH ×2 (08:33→20:36)
[2017-05-10] MEDS: GABAPENTIN 300 MG CAP PO SCH ×3 (08:33→21:05)
[2017-05-10] MEDS: HYDROcodone/APAP 10-325MG 1 EACH TAB PO PRN ×4 (08:35→22:18)
[2017-05-10] MEDS: SYMBICORT 160-4.5 MCG INHALER INHALATION SCH ×2 (08:47→19:33)
[2017-05-10 09:08] LABS: Anion Gap 9 mmol/L; Blood Urea Nitrogen 21 mg/dL (7-17); Calcium 8.4 mg/dL (8.4-10.2); Carbon Dioxide 26 mmol/L (22-30); Chloride 105 mmol/L (98-107); Glucose 122 mg/dL (74-99); Magnesium 1.4 mg/dL (1.6-2.3); Potassium 4.8 mmol/L (3.5-5.1); Sodium 140 mmol/L (137-145)
[2017-05-10] MEDS: MENTHOL-ZINC OXIDE OINT 113 GM TUBE TOPICAL SCH ×2 (09:43→18:00)
[2017-05-10] MEDS ORDERED: Magnesium Replacement Protocol 1 EACH MISC MISCELLANE PRN (10:24)
[2017-05-10 11:30] LABS: Glucose,Whole Blood 90 mg/dL (75-99)
[2017-05-10] MEDS: MAGNESIUM SULFATE-D5W PMX 1 GM in DEXTROSE/WATER 1 100ML.BAG IVPB SCH ×3 (11:33→13:44)
[2017-05-10 16:34] LABS: Glucose,Whole Blood 151 mg/dL (75-99)
[2017-05-10] MEDS: COLLAGENASE 250 UNIT/GM OINTMENT 30 GM TUBE TOPICAL SCH (17:59)
[2017-05-10] MEDS: RIVAROXABAN 15 MG TAB PO SCH (20:36)
[2017-05-10] MEDS: ASPIRIN 81 MG PO SCH (20:36)
[2017-05-10] MEDS: ATORVASTATIN 10 MG TAB PO SCH (20:36)
[2017-05-10] MEDS: MULTIVITAMINS, THERA 1 EACH TAB PO SCH (20:36)
[2017-05-10] MEDS: ASCORBIC ACID 500 MG TAB PO SCH (20:36)
[2017-05-10] MEDS: INSULIN DETEMIR 100 UNIT/ML 10 ML VIAL SQ SCH (20:36)
[2017-05-10] MEDS: CEFUROXIME 250 MG TAB PO SCH (20:38)
[2017-05-10 20:59] LABS: Glucose,Whole Blood 243 mg/dL (75-99)
[2017-05-10] MEDS: ALPRAZolam 0.25 MG TAB PO PRN (22:18)
[2017-05-11] MEDS: MENTHOL-ZINC OXIDE OINT 113 GM TUBE TOPICAL SCH ×4 (00:13→21:02)
--- NOTE | 2017-05-11 01:41 | P.PN ---
Subjective Progress Note Date: 05/09/17 Principal diagnosis: Bilateral lower extremity cellulitis and hyperkalemia Patient is a 67-year-old female with a known history of chronic Atrial Fibrillation, Asthma, Heart Failure, Diabetes Mellitus, GERD/Reflux, Hypertension who was recently admitted to the hospital about 2 weeks ago for bilateral lower activity cellulitis with wound cultures growing MSSA was sent back to ER where EMS from extended care facility for evaluation of confusion and altered mental status. Patient states that she had low blood sugar and ask for a candy bar but was given orange juice. Her blood sugar was 52 originally. Other concern is she has lower extremity infections she saw Dr. Cortés yesterday. She really ran out of her Bactrim. She again got it refilled. Otherwise patient says that she has not been getting Bactrim at [facility]. No current report of nausea vomiting focal weakness fevers chills or sweats. Patient was found to have hyperkalemia with potassium level 7.2. Patient was also having atrial fibrillation with rapid ventricular rate. Currently patient is more awake and oriented and has mental status is at baseline as per her daughter at bedside. 05/08/2017 Patient's bilateral lower activity redness is much improved now. Wound cultures were sent. Patient was started on ceftriaxone as per ID recommendations. Hypokalemia improved. Heart rate is controlled. Cardizem drip has been discontinued. Otherwise no fever no chills. Patient mental status improved as well. Lactic acidosis resolved. Patient's hemoglobin dropped to 7.6 today. Patient will be given 1 unit of PRBC. 05/09/2017 swelling of the feet and redness is much improved now. Hemoglobin improved to8.6 today Otherwise heart rate isbetter controlled in 90s.. no complaints of chest pain or shortness of breath No fever no chills.potassium 5.3 today All other review of systems negative except the above Current medications reviewed. Objective - Vital Signs Vital signs: Vital Signs Temp 97.1 F L 05/09/17 15:39 Pulse 110 H 05/09/17 15:39 Resp 18 05/09/17 15:39 BP 134/74 05/09/17 15:39 Pulse Ox 95 05/09/17 15:39 Intake & Output 05/09/17 05/09/17 05/10/17 06:59 18:59 06:59 Intake Total 250 1180 Balance 250 1180 Intake: Oral 250 1180 Other: Voiding Method Diaper Diaper Incontinent Incontinent # Voids 1 1 # Bowel Movements 1 - Exam Patient is lying in the bed comfortably, no acute distress, awake alert and oriented.. HEENT: Normocephalic. Neck is supple. Pupils reactive. Nostrils clear. Oral cavity is moist. Ears reveal no drainage. Neck reveals no JVD, carotid bruits, or thyromegaly. CHEST EXAMINATION: Trachea is central. Symmetrical expansion. Lung hernandez clear to auscultation and percussion. Diminished basally. CARDIAC: Normal S1, S2 with no gallops. No murmurs, atrial fibrillation ABDOMEN: Soft. Bowel sounds normal. No organomegaly. No abdominal bruits. Extremities: reveal no edema. No clubbing or cyanosis Neurologically awake, alert, oriented x3 with well-coordinated movements. No focal deficits noted Skin: Bilateral feet swollen and red with multiple scabbed wounds. Redness extending up to about ankle on both sides. Redness improved. Psychiatric: Cooperative. Nonsuicidal Musculoskeletal: No joint swelling or deformity. Normal range of motion. - Labs CBC & Chem 7: 05/09/17 06:01 05/10/17 08:34 Labs: Abnormal Lab Results - Last 24 Hours (Table) 05/09/17 05/09/17 05/09/17 Range/Units 02:17 05:58 06:01 Hgb 8.6 L (11.4-16.0) gm/dL Hct 33.5 L (34.0-46.0) % MCH 20.8 L (25.0-35.0) pg MCHC 25.6 L (31.0-37.0) g/dL RDW 19.2 H (11.5-15.5) % Plt Count 724 H (150-450) k/uL Sodium (137-145) mmol/L Potassium (3.5-5.1) mmol/L BUN (7-17) mg/dL Glucose (74-99) mg/dL POC Glucose (mg/dL) 204 H 204 H (75-99) mg/dL 05/09/17 05/09/17 05/09/17 Range/Units 06:01 11:53 16:36 Hgb (11.4-16.0) gm/dL Hct (34.0-46.0) % MCH (25.0-35.0) pg MCHC (31.0-37.0) g/dL RDW (11.5-15.5) % Plt Count (150-450) k/uL Sodium 136 L (137-145) mmol/L Potassium 5.3 H (3.5-5.1) mmol/L BUN 21 H (7-17) mg/dL Glucose 170 H (74-99) mg/dL POC Glucose (mg/dL) 118 H 223 H (75-99) mg/dL 05/09/17 Range/Units 20:32 Hgb (11.4-16.0) gm/dL Hct (34.0-46.0) % MCH (25.0-35.0) pg MCHC (31.0-37.0) g/dL RDW (11.5-15.5) % Plt Count (150-450) k/uL Sodium (137-145) mmol/L Potassium (3.5-5.1) mmol/L BUN (7-17) mg/dL Glucose (74-99) mg/dL POC Glucose (mg/dL) 171 H (75-99) mg/dL Microbiology - Last 24 Hours (Table) 05/07/17 13:08 Blood Culture - Preliminary Blood No Growth after 48 hours Assessment and Plan Assessment: Altered mental status with possible metabolic encephalopathy due to hypoglycemia and infection. Improved. Severe hyperkalemia due to acute kidney injury and lactic acidosis. Resolved Acute kidney injury Acute on chronic bilateral lower exudate or cellulitis with recent wound cultures growing MSSA, Marlene albicans as well as Alcaligenes Atrial fibrillation with rapid ventricular rate. Started on Cardizem drip. Rate controlled. DC'd Cardizem drip. Continue with beta blockers. Diabetes type 2 Chronic atrial fibrillation CHF chronic with diastolic dysfunction Hypertension history of carotid artery stenosis Obesity Microcytic anemia. Rule out iron deficiency Plan: Patient will be continued on antibiotics in the form of ceftriaxone. Continue with metoprolol. Follow-up renal function. Continue with other home medications. Further recommendations based on the clinical course. Prognosis is guarded with multiple medical problems and comorbid conditions. Time with Patient: Greater than 30
--- NOTE | 2017-05-11 01:43 | P.PN ---
Subjective Progress Note Date: 05/10/17 Principal diagnosis: Bilateral lower extremity cellulitis and hyperkalemia Patient is a 67-year-old female with a known history of chronic Atrial Fibrillation, Asthma, Heart Failure, Diabetes Mellitus, GERD/Reflux, Hypertension who was recently admitted to the hospital about 2 weeks ago for bilateral lower activity cellulitis with wound cultures growing MSSA was sent back to ER where EMS from [facility] for evaluation of confusion and altered mental status. Patient states that she had low blood sugar and ask for a candy bar but was given orange juice. Her blood sugar was 52 originally. Other concern is she has lower extremity infections she saw Dr. Cortés yesterday. She really ran out of her Bactrim. She again got it refilled. Otherwise patient says that she has not been getting Bactrim at [facility]. No current report of nausea vomiting focal weakness fevers chills or sweats. Patient was found to have hyperkalemia with potassium level 7.2. Patient was also having atrial fibrillation with rapid ventricular rate. Currently patient is more awake and oriented and has mental status is at baseline as per her daughter at bedside. 05/08/2017 Patient's bilateral lower activity redness is much improved now. Wound cultures were sent. Patient was started on ceftriaxone as per ID recommendations. Hypokalemia improved. Heart rate is controlled. Cardizem drip has been discontinued. Otherwise no fever no chills. Patient mental status improved as well. Lactic acidosis resolved. Patient's hemoglobin dropped to 7.6 today. Patient will be given 1 unit of PRBC. 05/09/2017 swelling of the feet and redness is much improved now. Hemoglobin improved to8.6 today Otherwise heart rate isbetter controlled in 90s.. no complaints of chest pain or shortness of breath No fever no chills.potassium 5.3 today 05/10/2017 Patient's heart rate is slightly elevated at 100. We will increasemetoprolol to 100 mg twice a day. potassium 4.8 today No complaints ofchest pain or of breath. No nausea vomiting or abdominal pain. Patient did have a bowel movement . Patient was complaining of headache. All other review of systems negative except the above Current medications reviewed. Objective - Vital Signs Vital signs: Vital Signs Temp 96.9 F L 05/10/17 20:00 Pulse 91 05/10/17 20:00 Resp 18 05/10/17 20:00 BP 160/73 05/10/17 20:00 Pulse Ox 95 05/10/17 19:33 Intake & Output 05/10/17 05/10/17 05/11/17 06:59 18:59 06:59 Intake Total 2139 Output Total 400 Balance 1739 Intake: Oral 9 Output: Urine 400 Other: Voiding Method Bedpan Bedpan Diaper Diaper Diaper Incontinent Incontinent Incontinent # Voids 2 1 # Bowel Movements 1 - Exam Patient is lying in the bed comfortably, no acute distress, awake alert and oriented.. HEENT: Normocephalic. Neck is supple. Pupils reactive. Nostrils clear. Oral cavity is moist. Ears reveal no drainage. Neck reveals no JVD, carotid bruits, or thyromegaly. CHEST EXAMINATION: Trachea is central. Symmetrical expansion. Lung hernandez clear to auscultation and percussion. Diminished basally. CARDIAC: Normal S1, S2 with no gallops. No murmurs, atrial fibrillation ABDOMEN: Soft. Bowel sounds normal. No organomegaly. No abdominal bruits. Extremities: reveal no edema. No clubbing or cyanosis Neurologically awake, alert, oriented x3 with well-coordinated movements. No focal deficits noted Skin: Bilateral feet swollen and red with multiple scabbed wounds. Redness extending up to about ankle on both sides. Redness improved. Psychiatric: Cooperative. Nonsuicidal Musculoskeletal: No joint swelling or deformity. Normal range of motion. - Labs CBC & Chem 7: 05/09/17 06:01 05/10/17 08:34 Labs: Abnormal Lab Results - Last 24 Hours (Table) 05/10/17 05/10/17 05/10/17 Range/Units 05:32 08:34 16:23 BUN 21 H (7-17) mg/dL Glucose 122 H (74-99) mg/dL POC Glucose (mg/dL) 119 H 151 H (75-99) mg/dL Magnesium 1.4 L (1.6-2.3) mg/dL 05/10/17 Range/Units 20:57 BUN (7-17) mg/dL Glucose (74-99) mg/dL POC Glucose (mg/dL) 243 H (75-99) mg/dL Magnesium (1.6-2.3) mg/dL Microbiology - Last 24 Hours (Table) 05/07/17 13:08 Blood Culture - Preliminary Blood No Growth after 72 hours Assessment and Plan Assessment: Altered mental status with possible metabolic encephalopathy due to hypoglycemia and infection. Improved. Severe hyperkalemia due to acute kidney injury and lactic acidosis. Resolved Acute kidney injury Acute on chronic bilateral lower exudate or cellulitis with recent wound cultures growing MSSA, Marlene albicans as well as Alcaligenes Atrial fibrillation with rapid ventricular rate. Started on Cardizem drip. Rate controlled. DC'd Cardizem drip. Continue with beta blockers. Diabetes type 2 Chronic atrial fibrillation CHF chronic with diastolic dysfunction Hypertension history of carotid artery stenosis Obesity Microcytic anemia. Rule out iron deficiency Plan: Patient will be continued on antibiotics in the form of ceftriaxone. Continue with metoprolol. increased to 100 mg twice a day. Follow-up renal function. Continue with other home medications. Further recommendations based on the clinical course. Prognosis is guarded with multiple medical problems and comorbid conditions. Time with Patient: Greater than 30
[2017-05-11] MEDS: HYDROcodone/APAP 10-325MG 1 EACH TAB PO PRN ×4 (04:14→21:23)
[2017-05-11 06:12] LABS: Glucose,Whole Blood 97 mg/dL (75-99)
[2017-05-11] MEDS: INSULIN ASPART 100 UNIT/ML 1 ML 10 ML VIAL SQ SCH ×7 (06:18→21:37)
[2017-05-11 06:29] LABS: Anisocytosis Moderate; HCT 32.8 % (34.0-46.0); HGB 8.4 gm/dL (11.4-16.0); Hypochromasia Marked; MCH 20.6 pg (25.0-35.0); MCHC 25.6 g/dL (31.0-37.0); MCV 80.5 fL (80.0-100.0); Mean Platelet Volume 6.9; Microcytosis Slight; Platelet Count 641 k/uL (150-450); RBC 4.07 m/uL (3.80-5.40); RDW 20.3 % (11.5-15.5); WBC 9.2 k/uL (3.8-10.6)
[2017-05-11 06:35] LABS: Anion Gap 10 mmol/L; Blood Urea Nitrogen 29 mg/dL (7-17); Calcium 8.6 mg/dL (8.4-10.2); Carbon Dioxide 26 mmol/L (22-30); Chloride 102 mmol/L (98-107); Glucose 86 mg/dL (74-99); Potassium 5.1 mmol/L (3.5-5.1); Sodium 138 mmol/L (137-145)
[2017-05-11] MEDS: PANTOPRAZOLE 40 MG TABLET PO SCH (07:10)
[2017-05-11] MEDS: metFORMIN 500 MG TAB PO SCH ×2 (07:10→17:00)
--- NOTE | 2017-05-11 07:42 | PN ---
PROGRESS NOTE DATE OF SERVICE: 05/10/2017 REASON FOR FOLLOWUP: Lower extremity wound and cellulitis. The patient with no IV and recommend oral antibiotic. INTERVAL HISTORY: The patient is a 67-year-old, female, currently being treated by Dr. Cortés for bilateral lower extremity wound with secondary cellulitis. The patient did have a positive culture with MSSA on her last admission and currently has been treated with IV Rocephin. However, the patient had lost her IV and the RN to place another peripheral IV on her. Hence, the RN called me to re-evaluate the patient and possibility of oral antibiotics per instruction of the admitting physician. The patient is currently afebrile. She denies having any pain in the leg area. She has multiple wounds currently treated with Silvadene cream. Denies having any chest pain, cough. No abdominal pain or any diarrhea. PHYSICAL EXAMINATION: On examination, blood pressure 162/73 with a pulse of 91, temperature of 96.8. She is 95% on room air. General description is an elderly female up in the chair, in no distress. RESPIRATORY SYSTEM: Unlabored breathing, clear to auscultation anteriorly. HEART: S1, S2. Regular rate and rhythm. ABDOMEN: Soft, no tenderness. Her leg wound with significant amount of slough tissue. Minimal surrounding erythema. No foul smelling drainage. LABS: BUN of 21, creatinine 0.94. Blood culture this admission has been negative. DIAGNOSTIC IMPRESSION AND PLAN: Patient with bilateral lower extremity venous stasis ulcers with secondary cellulitis with recent culture positive for MSSA on IV Rocephin. Now with no IV access, antibiotic can be switched over to Ceftin 500 b.i.d. Local wound care with Raulyl in view of significant amount of slough that was noticed on today's examination. Further care per Dr. Cortés when he gets back in town tomorrow. MMODL / IJN: [id number] / DARIANA
[2017-05-11 07:46] LABS: Monocytes # (M) 1.29 k/uL (0-1.0); Neutrophils # (M) 4.32 k/uL (1.3-7.7); Neutrophils % (M) 47 %
[2017-05-11 07:47] LABS: Eosinophils # (M) 0.09 k/uL (0-0.7); Nucleated Red Blood Cells 0 /100 WBC (0-0); Total Cells Counted 100
[2017-05-11 07:49] LABS: Polychromasia Present; Stomatocytes Present
[2017-05-11] MEDS: CEFUROXIME 250 MG TAB PO SCH ×2 (07:52→21:00)
[2017-05-11] MEDS: COLLAGENASE 250 UNIT/GM OINTMENT 30 GM TUBE TOPICAL SCH (07:52)
[2017-05-11] MEDS: FUROSEMIDE 20 MG TAB PO SCH (07:54)
[2017-05-11] MEDS: GABAPENTIN 300 MG CAP PO SCH ×3 (07:55→21:01)
[2017-05-11] MEDS: METOPROLOL TARTRATE 50 MG TAB PO SCH ×2 (07:55→21:01)
[2017-05-11] MEDS: SYMBICORT 160-4.5 MCG INHALER INHALATION SCH ×2 (08:12→20:13)
[2017-05-11 12:21] LABS: Glucose,Whole Blood 75 mg/dL (75-99)
[2017-05-11 14:45] VITALS: BMI 35.7
[2017-05-11 16:46] LABS: Glucose,Whole Blood 87 mg/dL (75-99)
[2017-05-11] MEDS: MULTIVITAMINS, THERA 1 EACH TAB PO SCH (21:00)
[2017-05-11] MEDS: RIVAROXABAN 15 MG TAB PO SCH (21:01)
[2017-05-11] MEDS: ASPIRIN 81 MG PO SCH (21:01)
[2017-05-11] MEDS: ATORVASTATIN 10 MG TAB PO SCH (21:01)
[2017-05-11] MEDS: ASCORBIC ACID 500 MG TAB PO SCH (21:01)
[2017-05-11] MEDS: ALPRAZolam 0.25 MG TAB PO PRN (21:23)
[2017-05-11] MEDS: INSULIN DETEMIR 100 UNIT/ML 10 ML VIAL SQ SCH (21:37)
[2017-05-11 21:48] LABS: Glucose,Whole Blood 157 mg/dL (75-99)
--- NOTE | 2017-05-11 22:59 | P.PN ---
Subjective Progress Note Date: 05/11/17 Principal diagnosis: ulcers of legs This is a 67-year-old female patient well-known to ID service as she was seen on on October admission after a fall on her left knee causing a rug burn. She underwent an I&D of the site and was then placed on Rocephin for 21 day course which she has completed and had complete healing of the left knee. She then presented on March 15 status post ablation of the vein in the right leg done by Dr. Bonilla at [facility]. 2 weeks following cellulitis, sepsis and septic shock, acute respiratory failure, [facility] 2 g every 12 hours through April 08. Patient presented to [facility] April 23 and was treated again for bilateral lower extremity cellulitis with cultures positive for MSSA and was discharged back to the long term on Bactrim for 5 day course. At the long term, patient developed mental status changes and was found to have a blood sugar of 52 and came back into [facility] emergency center for evaluation. She was afebrile but tachycardic. She's been started on Cardizem drip. Her white count was 12.2 and now at 7.3, hemoglobin 7.6. Potassium was initially 7.3 and now down to 5.5. Creatinine 1.3. Lactic acid 2. 9 repeat at 1.7. Blood cultures status received. Patient is noted to be still confused per she's been admitted to the selective care unit and continued on Rocephin. She underwent bilateral foot x-rays which showed a left 1.3 cm metallic foreign body in the lateral plantar soft tissue. Diffuse soft tissue swelling and no acute osseous abnormality. On the right there was bunions, diffuse soft tissue swelling and no acute osseous abnormality. Definitely feeling better today. Sitting upright. Is eating her meal without any difficulties. Is not complaining of pain at this time. After her stroke she is definitely having difficulties with her vision Objective - Vital Signs Vital signs: Vital Signs Temp 96.8 F L 05/11/17 18:24 Pulse 95 05/11/17 18:24 Resp 20 05/11/17 18:24 BP 156/67 05/11/17 18:24 Pulse Ox 96 05/11/17 18:24 Intake & Output 05/11/17 05/11/17 05/12/17 06:59 18:59 06:59 Intake Total 120 Output Total 300 Balance -300 120 Weight 109.9 kg 109.9 kg Intake: Oral 120 Output: Urine 300 Other: Voiding Method Bedside Commode Bedside Commode # Voids 1 1 # Bowel Movements 1 - Exam Gen: This is a morbidly obese 67-year-old female. She is sitting on the edge of the bed and appears to be in no acute distress. HEENT: Head is atraumatic, normocephalic. Pupils equal, round. Sclerae is anicteric. Conjunctiva pink. Oral mucous membranes moist. No thrush noted. NECK: Supple. No JVD. No lymphadenopathy. No thyromegaly. LUNGS: Scattered wheezes. No intercostal retractions. HEART: Regular rate and rhythm. No murmur. ABDOMEN: Obese Soft. Bowel sounds are present. No masses. No tenderness. EXTREMITIES: Significant edema and ulcerations to bilateral lower extremities most severe on the right. Please see the nursing photography NEUROLOGICAL: Patient is awake, alert and oriented x2 - Labs CBC & Chem 7: 05/11/17 05:49 05/11/17 05:49 Labs: Abnormal Lab Results - Last 24 Hours (Table) 05/11/17 05/11/17 05/11/17 Range/Units 05:49 05:49 21:31 Hgb 8.4 L (11.4-16.0) gm/dL Hct 32.8 L (34.0-46.0) % MCH 20.6 L (25.0-35.0) pg MCHC 25.6 L (31.0-37.0) g/dL RDW 20.3 H (11.5-15.5) % Plt Count 641 H (150-450) k/uL Monocytes # (Manual) 1.29 H (0-1.0) k/uL BUN 29 H (7-17) mg/dL POC Glucose (mg/dL) 157 H (75-99) mg/dL Microbiology - Last 24 Hours (Table) 05/07/17 13:08 Blood Culture - Preliminary Blood No Growth after 96 hours Laboratory Results WBC 9.2 k/uL (3.8-10.6) 05/11/17 05:49 RBC 4.07 m/uL (3.80-5.40) 05/11/17 05:49 Hgb 8.4 gm/dL (11.4-16.0) L 05/11/17 05:49 Hct 32.8 % (34.0-46.0) L 05/11/17 05:49 MCV 80.5 fL (80.0-100.0) 05/11/17 05:49 MCH 20.6 pg (25.0-35.0) L 05/11/17 05:49 MCHC 25.6 g/dL (31.0-37.0) L 05/11/17 05:49 RDW 20.3 % (11.5-15.5) H 05/11/17 05:49 Plt Count 641 k/uL (150-450) H 05/11/17 05:49 Neutrophils % (Manual) 47 % 05/11/17 05:49 Lymphocytes % (Manual) 38 % 05/11/17 05:49 Monocytes % (Manual) 14 % 05/11/17 05:49 Eosinophils % (Manual) 1 % 05/11/17 05:49 Neutrophils # (Manual) 4.32 k/uL (1.3-7.7) 05/11/17 05:49 Lymphocytes # (Manual) 3.50 k/uL (1.0-4.8) 05/11/17 05:49 Monocytes # (Manual) 1.29 k/uL (0-1.0) H 05/11/17 05:49 Eosinophils # (Manual) 0.09 k/uL (0-0.7) 05/11/17 05:49 Nucleated RBCs 0 /100 WBC (0-0) 05/11/17 05:49 Manual Slide Review Performed 05/09/17 06:01 Polychromasia Present 05/11/17 05:49 Hypochromasia Marked 05/11/17 05:49 Poikilocytosis (manual Present 05/07/17 13:08 Anisocytosis Moderate 05/11/17 05:49 Microcytosis Slight 05/11/17 05:49 Stomatocytes Present 05/11/17 05:49 Sodium 138 mmol/L (137-145) 05/11/17 05:49 Potassium 5.1 mmol/L (3.5-5.1) 05/11/17 05:49 Chloride 102 mmol/L (98-107) 05/11/17 05:49 Carbon Dioxide 26 mmol/L (22-30) 05/11/17 05:49 Anion Gap 10 mmol/L 05/11/17 05:49 BUN 29 mg/dL (7-17) H 05/11/17 05:49 Creatinine 0.88 mg/dL (0.52-1.04) 05/11/17 05:49 Est GFR (MDRD) Af Amer >60 (>60 ml/min/1.73 sqM) 05/11/17 05:49 Est GFR (MDRD) Non-Af >60 (>60 ml/min/1.73 sqM) 05/11/17 05:49 Glucose 86 mg/dL (74-99) 05/11/17 05:49 POC Glucose (mg/dL) 157 mg/dL (75-99) H 05/11/17 21:31 POC Glu Patcher ID Gabriel Jose 05/11/17 21:31 Lactic Ac Sepsis Rflx Y 05/07/17 23:45 Plasma Lactic Acid Roger 1.7 mmol/L (0.7-2.0) 05/08/17 05:10 Calcium 8.6 mg/dL (8.4-10.2) 05/11/17 05:49 Magnesium 2.1 mg/dL (1.6-2.3) 05/10/17 16:37 Total Bilirubin 0.4 mg/dL (0.2-1.3) 05/07/17 13:08 AST 35 U/L (14-36) 05/07/17 13:08 ALT 31 U/L (9-52) 05/07/17 13:08 Alkaline Phosphatase 125 U/L (38-126) 05/07/17 13:08 Ammonia 9 umol/L (<30) 05/07/17 13:08 Total Creatine Kinase 36 U/L (30-135) 05/07/17 13:08 CK-MB (CK-2) 2.6 ng/mL (0.0-2.4) H* 05/07/17 13:08 CK-MB (CK-2) Rel Index 7.2 05/07/17 13:08 Troponin I 0.019 ng/mL (0.000-0.034) 05/07/17 13:08 Total Protein 6.7 g/dL (6.3-8.2) 05/07/17 13:08 Albumin 3.2 g/dL (3.5-5.0) L 05/07/17 13:08 Microbiology 05/07/17 13:08 Blood Blood Culture - Preliminary No Growth after 96 hours Assessment and Plan (1) Renal insufficiency syndrome Current Visit: Yes Status: Acute Code(s): N28.9 - DISORDER OF KIDNEY AND URETER, UNSPECIFIED SNOMED Code(s): 793059913 (2) Diabetes mellitus type 2 in obese Current Visit: No Status: Acute Code(s): E11.69 - TYPE 2 DIABETES MELLITUS WITH OTHER SPECIFIED COMPLICATION; E66.9 - OBESITY, UNSPECIFIED SNOMED Code(s) : 90454414 (3) Hyperkalemia Current Visit: Yes Status: Acute Code(s): E87.5 - HYPERKALEMIA SNOMED Code (s): 85368819 (4) Bilateral leg ulcer Narrative/Plan: 67-year-old woman presents to Hospital for further evaluation of the significant pain swelling ulcerations of her lower extremity. The presentation she was very weak and ill. There was evidence of acute renal failure with an elevated creatinine and elevated potassium. With hydration and withdrawal of sulfa medication she is not considerably better. She's improved her mental status somewhat still having ongoing sequela of her recent strokes. She appears to be having the difficulty with a adboul-anopsia with her vision. She is improving is likely the family will take her home and care for her in that setting. Local wound care was changed to Santyl which she is actually tolerating much better than last time it was tried she's not complaining of severe burning like she had in the past. Tolerated oral antibiotics of cefuroxime very well. This will be completed in the home setting. The leukocytosis, hyperkalemia, and acute renal failure have all resolved. Current Visit: Yes Status: Acute Code(s): L97.919 - NON-PRS CHRONIC ULC UNSP PRT OF R LOW LEG W UNSP SEVERITY; L97.929 - NON-PRS CHRONIC ULC UNSP PRT OF L LOW LEG W UNSP SEVERITY SNOMED Code(s): 32059482
--- NOTE | 2017-05-11 23:37 | P.PN ---
Subjective Progress Note Date: 05/11/17 Principal diagnosis: Bilateral lower extremity cellulitis and hyperkalemia Patient is a 67-year-old female with a known history of chronic Atrial Fibrillation, Asthma, Heart Failure, Diabetes Mellitus, GERD/Reflux, Hypertension who was recently admitted to the hospital about 2 weeks ago for bilateral lower activity cellulitis with wound cultures growing MSSA was sent back to ER where EMS from [facility] for evaluation of confusion and altered mental status. Patient states that she had low blood sugar and ask for a candy bar but was given orange juice. Her blood sugar was 52 originally. Other concern is she has lower extremity infections she saw Dr. Cortés yesterday. She really ran out of her Bactrim. She again got it refilled. Otherwise patient says that she has not been getting Bactrim at [facility]. No current report of nausea vomiting focal weakness fevers chills or sweats. Patient was found to have hyperkalemia with potassium level 7.2. Patient was also having atrial fibrillation with rapid ventricular rate. Currently patient is more awake and oriented and has mental status is at baseline as per her daughter at bedside. 05/08/2017 Patient's bilateral lower activity redness is much improved now. Wound cultures were sent. Patient was started on ceftriaxone as per ID recommendations. Hypokalemia improved. Heart rate is controlled. Cardizem drip has been discontinued. Otherwise no fever no chills. Patient mental status improved as well. Lactic acidosis resolved. Patient's hemoglobin dropped to 7.6 today. Patient will be given 1 unit of PRBC. 05/09/2017 swelling of the feet and redness is much improved now. Hemoglobin improved to8.6 today Otherwise heart rate isbetter controlled in 90s.. no complaints of chest pain or shortness of breath No fever no chills.potassium 5.3 today 05/10/2017 Patient's heart rate is slightly elevated at 100. We will increasemetoprolol to 100 mg twice a day. potassium 4.8 today No complaints ofchest pain or of breath. No nausea vomiting or abdominal pain. Patient did have a bowel movement . Patient was complaining of headache. 05/11/2017 Patient denied any complaints of chest pain or shortness of. Breath. Patient does have confusion on and off and also some vision issues from recent CVA. Otherwise bilateral leg swelling and redness is much improved now. Anticipate discharged to rehab tomorrow with oral antibiotics per ID recommendations. Continue with bilateral lower to wound care. All other review of systems negative except the above Current medications reviewed. Objective - Vital Signs Vital signs: Vital Signs Temp 96.8 F L 05/11/17 18:24 Pulse 95 05/11/17 18:24 Resp 20 05/11/17 18:24 BP 156/67 05/11/17 18:24 Pulse Ox 96 05/11/17 18:24 Intake & Output 05/11/17 05/11/17 05/12/17 06:59 18:59 06:59 Intake Total 120 Output Total 300 Balance -300 120 Weight 109.9 kg 109.9 kg Intake: Oral 120 Output: Urine 300 Other: Voiding Method Bedside Commode Bedside Commode # Voids 1 1 # Bowel Movements 1 - Exam Patient is lying in the bed comfortably, no acute distress, awake alert and oriented.. HEENT: Normocephalic. Neck is supple. Pupils reactive. Nostrils clear. Oral cavity is moist. Ears reveal no drainage. Neck reveals no JVD, carotid bruits, or thyromegaly. CHEST EXAMINATION: Trachea is central. Symmetrical expansion. Lung hernandez clear to auscultation and percussion. Diminished basally. CARDIAC: Normal S1, S2 with no gallops. No murmurs, atrial fibrillation ABDOMEN: Soft. Bowel sounds normal. No organomegaly. No abdominal bruits. Extremities: reveal no edema. No clubbing or cyanosis Neurologically awake, alert, oriented x3 with well-coordinated movements. No focal deficits noted Skin: Bilateral feet swollen and red with multiple scabbed wounds. Redness extending up to about ankle on both sides. Redness improved. Psychiatric: Cooperative. Nonsuicidal Musculoskeletal: No joint swelling or deformity. Normal range of motion. - Labs CBC & Chem 7: 05/11/17 05:49 05/11/17 05:49 Labs: Abnormal Lab Results - Last 24 Hours (Table) 05/11/17 05/11/17 05/11/17 Range/Units 05:49 05:49 21:31 Hgb 8.4 L (11.4-16.0) gm/dL Hct 32.8 L (34.0-46.0) % MCH 20.6 L (25.0-35.0) pg MCHC 25.6 L (31.0-37.0) g/dL RDW 20.3 H (11.5-15.5) % Plt Count 641 H (150-450) k/uL Monocytes # (Manual) 1.29 H (0-1.0) k/uL BUN 29 H (7-17) mg/dL POC Glucose (mg/dL) 157 H (75-99) mg/dL Microbiology - Last 24 Hours (Table) 05/07/17 13:08 Blood Culture - Preliminary Blood No Growth after 96 hours Assessment and Plan Assessment: Altered mental status with possible metabolic encephalopathy due to hypoglycemia and infection. Improved. Severe hyperkalemia due to acute kidney injury and lactic acidosis. Resolved Acute kidney injury Acute on chronic bilateral lower exudate or cellulitis with recent wound cultures growing MSSA, Marlene albicans as well as Alcaligenes Atrial fibrillation with rapid ventricular rate. Started on Cardizem drip. Rate controlled. DC'd Cardizem drip. Continue with beta blockers. Diabetes type 2 Chronic atrial fibrillation CHF chronic with diastolic dysfunction Hypertension history of carotid artery stenosis Obesity Microcytic anemia. Rule out iron deficiency Plan: Patient will be continued on antibiotics in the form of ceftriaxone. Continue with metoprolol. increased to 100 mg twice a day. Heart rate is better controlled now. Follow-up renal function. Continue with other home medications. Anticipate discharge to rehab tomorrow with oral antibiotics for lower activity cellulitis Further recommendations based on the clinical course. Prognosis is guarded with multiple medical problems and comorbid conditions. Time with Patient: Greater than 30
[2017-05-12] MEDS: HYDROcodone/APAP 10-325MG 1 EACH TAB PO PRN ×3 (04:13→14:56)
[2017-05-12 07:45] LABS: Glucose,Whole Blood 138 mg/dL (75-99)
[2017-05-12] MEDS: SYMBICORT 160-4.5 MCG INHALER INHALATION SCH (07:56)
[2017-05-12 08:04] VITALS: RESP 22
[2017-05-12] MEDS: INSULIN ASPART 100 UNIT/ML 1 ML 10 ML VIAL SQ SCH ×6 (08:58→17:35)
[2017-05-12] MEDS: metFORMIN 500 MG TAB PO SCH ×2 (08:59→17:35)
[2017-05-12] MEDS: PANTOPRAZOLE 40 MG TABLET PO SCH (09:00)
[2017-05-12] MEDS: GABAPENTIN 300 MG CAP PO SCH ×2 (09:00→16:08)
[2017-05-12] MEDS: FUROSEMIDE 20 MG TAB PO SCH (09:00)
[2017-05-12] MEDS: CEFUROXIME 250 MG TAB PO SCH (09:00)
[2017-05-12] MEDS: COLLAGENASE 250 UNIT/GM OINTMENT 30 GM TUBE TOPICAL SCH (09:00)
[2017-05-12] MEDS: MENTHOL-ZINC OXIDE OINT 113 GM TUBE TOPICAL SCH ×2 (09:01→16:08)
[2017-05-12] MEDS: METOPROLOL TARTRATE 50 MG TAB PO SCH (09:01)
[2017-05-12 12:16] LABS: Glucose,Whole Blood 157 mg/dL (75-99)
[2017-05-12 15:56] VITALS: BP 126/60; PULSE 97; TEMP 96.1
[2017-05-12 17:34] LABS: Glucose,Whole Blood 102 mg/dL (75-99)
--- NOTE | 2017-05-31 22:39 | DS ---
DISCHARGE SUMMARY ADMISSION DIAGNOSES: 1. Altered mental status, metabolic encephalopathy secondary to hypoglycemia and infection, severe hyperkalemia, acute renal injury with lactic acidosis, acute on chronic bilateral lower extremity cellulitis with recent wound growth of methicillin resistant staphylococcus aureus (MRSA) and Marlene. 2. Atrial fibrillation with rapid ventricular response. 3. Diabetes mellitus type 2. 4. Diastolic congestive heart failure. 5. Hypertension. 6. Obesity. BRIEF HISTORY: A 67-year-old female presented, who was recently discharged from the hospital 2 weeks prior to the admission for bilateral lower extremity cellulitis, at which time she grew MRSA. The patient's cellulitis got worse. She was sent back to the ER from the extended care facility. Also, for evaluation of confusion and mental status change. The patient did have low blood sugar at the extended care facility. She had was given a candy bar and orange juice and eventually her blood sugar came up to 52. Nursing was also concerned about worsening erythema. The patient saw Dr. Cortés outpatient and was started on Bactrim, but according to patient, she had not been getting that at the senior living. The patient's potassium level in the ED was found to be 7.2. She was also in atrial fibrillation with RVR. PAST MEDICAL HISTORY: Significant for atrial fibrillation, asthma, coronary artery disease, CHF, diabetes mellitus, gastroesophageal reflux disease, history of hypertension, anemia. MEDICATIONS ON ADMISSION: 1. Multivitamins 1 p.o. at bedtime. 2. Omeprazole 20 mg with breakfast. 3. Xarelto 20 mg p.o. at bedtime. 4. Metformin 1000 mg b.i.d. 5. Ascorbic acid 500 at bedtime. 6. Symbicort 2 puffs b.i.d. 7. Dulcolax 10 mg rectal suppository daily p.r.n. 8. Ventolin nebulizer 2 inhalations every 6 hours p.r.n. 9. Lipitor 10 mg p.o. at bedtime. 10.Lasix 20 mg p.o. daily. 11.Insulin 10 units with meals and at bedtime. 12.Lopressor 50 mg b.i.d. 13.Xanax 0.25 mg p.o. t.i.d. 14.Hydrocodone 10/325 one p.o. every 4 hours p.r.n. 15.Aspirin 81 p.o. at bedtime. 16.Neurontin 200 mg p.o. b.i.d. BRIEF HOSPITAL COURSE: The patient was admitted to telemetry. She was started on cautious IV fluid hydration and monitoring for renal function and electrolytes. The patient was given Kayexalate and insulin and albuterol inhalation for hyperkalemia, which did improve the potassium level. She was started on IV fluids. ID consultation was done. Nephrology was consulted secondary to hyperkalemia. She was seen by ID. She was also started on IV Cardizem drip for atrial fibrillation which was slowly discontinued when the heart rate settled down. The patient was seen by ID and antibiotics escalated to ceftriaxone. Wound cultures and blood cultures were followed. The patient's acid reflux improved. While in the hospital the patient's hemoglobin dropped down to 6 with no obvious source of bleeding. She was given 1 unit of packed RBCs to keep the hemoglobin stable. The patient did not have any further complications while in the hospital. Her metoprolol was increased to twice daily for heart rate. She continued to stay stable. She was discharged back to the extended care facility with oral antibiotics twice a day for 10 more days and continue following medications. MEDICATIONS: 1. Xanax 0.2 mg p.o. t.i.d. 2. Tylenol 650 mg every hours p.r.n. 3. Albuterol nebulizer treatments every 6 hours p.r.n. 4. Vitamin D 500 mg at bedtime. 5. Aspirin 81 mg daily. 6. Lipitor 10 mg at bedtime. 7. Symbicort 2 puffs b.i.d. 8. Lasix 20 mg daily. 9. Neurontin 200 mg b.i.d. MMODL / IJN: [id number] / MTDD
== END 2017-05-12 18:24 | disposition home health service (06) | DRG 602 ==
LOC: EC 11:52 → 6SEL 15:58 → 4MS4W 05-11 18:11
PROVIDERS: ADMIT Internal Medicine; ATTEND Internal Medicine
DX: L03.115 Cellulitis of right lower limb (principal); G93.41 Metabolic encephalopathy; N17.9 Acute kidney failure, unspecified; E87.2 Acidosis; I48.2 Chronic atrial fibrillation; E11.649 Type 2 diabetes mellitus with hypoglycemia without coma; E87.5 Hyperkalemia; E86.0 Dehydration; I50.32 Chronic diastolic (congestive) heart failure; I11.0 Hypertensive heart disease with heart failure; I65.29 Occlusion and stenosis of unspecified carotid artery; D50.9 Iron deficiency anemia, unspecified; E66.9 Obesity, unspecified; I87.2 Venous insufficiency (chronic) (peripheral); L03.116 Cellulitis of left lower limb; J45.909 Unspecified asthma, uncomplicated; K21.9 Gastro-esophageal reflux disease without esophagitis; M21.611 Bunion of right foot; R32 Unspecified urinary incontinence; T37.0X5A Adverse effect of sulfonamides, initial encounter; Z68.35 Body mass index [BMI] 35.0-35.9, adult; Z79.01 Long term (current) use of anticoagulants; Z79.4 Long term (current) use of insulin; Z79.51 Long term (current) use of inhaled steroids; Z79.899 Other long term (current) drug therapy; Z79.82 Long term (current) use of aspirin; Z91.030 Bee allergy status; Z90.710 Acquired absence of both cervix and uterus; Z87.891 Personal history of nicotine dependence; Z86.73 Personal history of transient ischemic attack (TIA), and cerebral infarction without residual deficits; Z82.49 Family history of ischemic heart disease and other diseases of the circulatory system; Y92.9 Unspecified place or not applicable
CPT/HCPCS: 36415; 71045; 80048; 80053; 81003; 82140; 82550; 82553; 83605; 83735; 84132; 84484; 85025; 87040; 87086; 93005; 94640; 94760; 96361; 96374; 96375; 99285

== ENCOUNTER → 2017-07-15 | Outpatient (CLI) | payer MEDICARE ==
--- NOTE | 2017-07-21 09:26 | P.ARTDOP ---
Arterial Doppler LOWER EXTREMITY ARTERIAL DOPPLER: DATE OF SERVICE: 07/15/2017 Reason for study: Ulcers bilateral lower legs and heels. Doppler waveforms: Atypical bilaterally throughout.. Pulse volume recording: Mildly blunted bilaterally. Toe plethysmography waveforms are fairly flattened.. Pressure gradients: Below the knee bilaterally. Ankle-brachial indices: Greater than 1 on the left and 0.9 on the right. Toe pressures: [] on the right, [] on the left Impression: Suspect calcific wall disease bilaterally. Suspect at least moderate bilateral femoral popliteal disease. Clinical correlation recommended..
== END | disposition home or self-care (01) ==
LOC: RADUSWWP 14:06
PROVIDERS: ATTEND Thoracic Surgery (Cardiothoracic Vascular Surgery)
DX: M79.604 Pain in right leg (principal); M79.605 Pain in left leg
CPT/HCPCS: 93923

== ENCOUNTER 2017-08-05 10:21 | Day surgery (SDC) | payer MEDICARE ==
[2017-08-03 12:04] VITALS: BMI 38.9
--- NOTE | 2017-08-04 11:41 | P.GSHP ---
History of Present Illness H&P Date: 08/04/17 Chief Complaint: Bilateral lower leg ulcers This is a morbidly obese 67-year-old woman who had chronic swelling in the lower legs and developed severe cellulitis and lower leg ulcerations. These are too painful to be debridement in the wound center and she requires IV sedation for debridement. - Constitutional Constitutional: Reports weakness, Denies chills, Denies fever - EENT Eyes: denies blurred vision, denies pain Ears, nose, mouth and throat: Denies headache, Denies sore throat - Cardiovascular Cardiovascular: Reports decreased exercise tolerance, Reports edema, Reports leg edema, Denies chest pain, Denies orthopnea, Denies paroxysmal nocturnal dyspnea, Denies shortness of breath - Respiratory Respiratory: Denies cough, Denies cough with sputum, Denies hemoptysis - Gastrointestinal Gastrointestinal: Denies abdominal pain, Denies coffee ground emesis, Denies diarrhea, Denies hematochezia, Denies jaundice, Denies melena, Denies nausea, Denies vomiting - Genitourinary (Female) Genitourinary: Denies dysuria, Denies hematuria - Genitourinary (Male) Genitourinary: Denies dysuria, Denies hematuria - Musculoskeletal Musculoskeletal: Denies myalgias - Integumentary Integumentary: Denies pruritus, Denies rash - Neurological Neurological: Denies convulsions, Denies numbness, Denies paralysis, Denies syncope, Denies tremors, Denies weakness - Psychiatric Psychiatric: Denies anxiety, Denies depression - Endocrine Endocrine: Denies fatigue, Denies weight change - Hematologic/Lymphatic Hematologic/Lymphatic: Denies easy bleeding, Denies easy bruising - Allergic/Immunologic Allergic/Immunologic: Denies anaphylaxis, Denies angioedema, Denies urticaria Past Medical History Past Medical History: Atrial Fibrillation, Asthma, Blood Disorder, Heart Failure , CVA/TIA, Diabetes Mellitus, GERD/Reflux, Hypertension, Renal Disease, Skin Disorder Additional Past Medical History / Comment(s): Anemia, sepsis, metabolic encephalopathy, carotid artery stenosis, BL LE cellulitis, acute kidney failure , CVA 03/22/17 w/ LT sided peripheral vision loss. ULCERS VICKY LOWER LEGS, LT 2ND TOE. EDEMA LOWER LEGS; ON AB FOR CURRENT CELLULITIS. History of Any Multi-Drug Resistant Organisms: MRSA Date of last positivie culture/infection: 05/16/17 MDRO Source:: right and left leg Past Surgical History: Appendectomy, Hysterectomy, Orthopedic Surgery, Tonsillectomy Additional Past Surgical History / Comment(s): Cardioversion, arthroscopy of left knee, September 2016 - cleaned left knee and left drain tube in. Past Anesthesia/Blood Transfusion Reactions: No Reported Reaction Smoking Status: Former smoker - Past Family History Mother Family Medical History: No Reported History Father Family Medical History: AFIB, Congestive Heart Failure (CHF), Myocardial Infarction (DE), Renal Disease Medications and Allergies Home Medications Medication Instructions Recorded Confirmed Type Omeprazole [PriLOSEC] 20 mg PO AC-BRKFST 06/17/16 08/03/17 History Rivaroxaban [Xarelto] 20 mg PO HS 06/17/16 08/03/17 History Ascorbic Acid [Vitamin C] 500 mg PO HS 03/15/17 08/03/17 History Budesonide/Formoterol Fumarate 2 puff INHALATION RT-BID 03/15/17 08/03/17 History [Symbicort 160-4.5 Mcg Inhaler] Acetaminophen Tab [Tylenol] 650 mg PO Q6H PRN 04/22/17 08/03/17 History Albuterol Nebulized [Ventolin 2.5 mg INHALATION RT-Q6H PRN 04/22/17 08/03/17 History Nebulized] Furosemide [Lasix] 20 mg PO BID 04/22/17 08/03/17 History Metoprolol Tartrate [Lopressor] 50 mg PO TID 04/22/17 08/03/17 History Gabapentin [Neurontin] 200 mg PO BID 05/07/17 08/03/17 History Menthol/Zinc Oxide [Calmoseptine 1 applic TOPICAL TID 05/07/17 08/03/17 History Ointment] metFORMIN HCL 1,000 mg PO BID #1 tab 05/20/17 08/03/17 Rx Hydrocodone/Acetaminophen 1 each PO Q6HR PRN 07/01/17 08/03/17 History [Hydrocodon-Acetaminophen 5-325] Aspirin EC [Ecotrin Low Dose] 81 mg PO HS 08/03/17 08/03/17 History Atorvastatin [Lipitor] 40 mg PO HS 08/03/17 08/03/17 History Doxycycline Monohydrate [Monodox] 100 mg PO BID 08/03/17 08/03/17 History Ferrous Sulfate [Feosol] 325 mg PO PC-SUPPER 08/03/17 08/03/17 History INSULIN LISPRO (HumaLOG) [humaLOG] 0 unit SQ AC-TID 08/03/17 08/03/17 History Insulin Detemir [Levemir] 25 unit SQ HS 08/03/17 08/03/17 History Magnesium Oxide [Mag-Ox] 400 mg PO BID 08/03/17 08/03/17 History Miconazole Nitrate [Lotrimin AF 1 applic TOPICAL BID 08/03/17 08/03/17 History Powder] Potassium Chloride ER [K-Dur 20] 20 meq PO BID 08/03/17 08/03/17 History QUEtiapine [SEROquel] 25 mg PO HS 08/03/17 08/03/17 History Allergies Allergy/AdvReac Type Severity Reaction Status Date / Time bee venom protein (honey bee) Allergy Swelling Verified 07/31/17 11:10 Surgical - Exam Osteopathic Statement: *. No significant issues noted on an osteopathic structural exam other than those noted in the History and Physical/Consult. - General well developed, well nourished, no distress, obese - Eyes normal ocular movement, no icteric - ENT no hearing loss, no congestion - Neck no masses, trachea midline - Respiratory normal expansion, normal respiratory effort, clear to auscultation - Cardiovascular Rhythm: regular - Abdomen Massively obese Abdomen: soft, non tender, no guarding, no rigid, no rebound - Integumentary Large ulcers bilateral lower legs no rash, no abnormal pigmentation - Neurologic no disoriented, no combative - Musculoskeletal normal gait, normal posture - Psychiatric oriented to time, oriented to person, oriented to place, speech is normal, memory intact Assessment and Plan (1) Bilateral cellulitis of lower leg Status: Acute Code(s): L03.116 - CELLULITIS OF LEFT LOWER LIMB; L03.115 - CELLULITIS OF RIGHT LOWER LIMB SNOMED Code(s): 365176698 (2) Bilateral leg ulcer Status: Acute Code(s): L97.919 - NON-PRS CHRONIC ULC UNSP PRT OF R LOW LEG W UNSP SEVERITY; L97.929 - NON-PRS CHRONIC ULC UNSP PRT OF L LOW LEG W UNSP SEVERITY SNOMED Code(s): 63032738 Plan: Patient is to be admitted on 08/05/2017 for debridement of both lower legs. She will require IV sedation.
[~2017-08-05 10:21] MED LIST: DEXAMETHASONE SOD PHOSPHATE 10 MG/ML 1 ML VIAL IV ONE; LACTATED RINGERS 1,000 ML IV SCH; LIDOCAINE 1% 20 ML VIAL (10MG/ML) FOR IV START INTRADERMA PRN; MORPHINE SULFATE 2 MG/ML SYRINGE IV PRN; ONDANSETRON 4 MG/2 ML VIAL IVP ONE; Pre Op ABX Message 1 EACH MISC MISCELLANE ONE; SCOPOLAMINE 1.5MG/72HR PATCH TRANSDERM ONE
[2017-08-05 11:19] LABS: Glucose,Whole Blood 124 mg/dL (75-99)
[2017-08-05] MEDS ORDERED: LIDOCAINE 1% INJ 10MG/ML (20 ML MDV) ONE (11:28)
[2017-08-05] MEDS ORDERED: fentaNYL (PF) 50 MCG/ML 2 ML AMP ONE (11:28)
[2017-08-05] MEDS ORDERED: MIDAZOLAM 2 MG/2 ML VIAL ONE (11:28)
[2017-08-05] MEDS ORDERED: PROPOFOL 10 MG/ML 20 ML VIAL IV ONE (11:28)
[2017-08-05] MEDS ORDERED: MORPHINE SULFATE 10 MG/ML SYRINGE ONE (11:28)
[2017-08-05] MEDS: MIDAZOLAM 2 MG/2 ML VIAL IVP ONE ×3 (12:18→12:54)
[2017-08-05] MEDS: fentaNYL (PF) 50 MCG/ML 2 ML AMP IVP ONE ×3 (12:19→12:54)
[2017-08-05 12:24] VITALS: TEMP 97.2
[2017-08-05 13:06] LABS: Glucose,Whole Blood 113 mg/dL (75-99)
--- NOTE | 2017-08-05 13:07 | P.WCSRGD ---
[facility]ound [facility]tr Surgical Debridement Date of service: 08/05/2017 Surgeon: Maddy Pre-and postop diagnosis: Chronic stasis ulcers bilateral lower legs with fatty layer exposed Type of debridement: Excisional surgical Chief complaint: ulcer of anterior posterior lateral and medial bilateral lower legs Anesthesia: 2% lidocaine gel applied to the ulcer Signs of infection: Mild redness Extent of necrotic, devitalized or non-viable tissue: Slough and nonviable soft tissue Other material in the wound that is expected to inhibit healing or promote adjacent tissue breakdown: Same Degree of epithelialization: % Method and instrument: Surgical debridement with scalpel and sharp curette Character of the wound after debridement: Bloody subcutaneous bed Description of necrotic material present: Nonviable soft tissue and slough Description of tissue removed: Same Pre-debridement measurement: Left leg cluster of 4 10 x 11.5. Right leg cluster of 4, 12 x 8 cm lateral right leg posterior 17 x 10 cm and each was about 0.2cm in depth Postoperative debridement measurement: No change in external dimensions cm and each was 0.4 cm in depth Control of bleeding:Bleeding was easily controlled with saline moistened gauze and light pressure Post debridement dressing: Absorptive silver and Vinay wrap Patient tolerated procedure well
[2017-08-05 14:26] VITALS: BP 124/58; PULSE 100; RESP 16
== END 2017-08-05 14:45 | disposition home or self-care (01) ==
LOC: OR 10:21
PROVIDERS: ATTEND Thoracic Surgery (Cardiothoracic Vascular Surgery)
DX: E11.622 Type 2 diabetes mellitus with other skin ulcer (principal); L97.812 Non-pressure chronic ulcer of other part of right lower leg with fat layer exposed; L97.822 Non-pressure chronic ulcer of other part of left lower leg with fat layer exposed; L97.522 Non-pressure chronic ulcer of other part of left foot with fat layer exposed; L03.116 Cellulitis of left lower limb; L03.115 Cellulitis of right lower limb; I87.2 Venous insufficiency (chronic) (peripheral); I48.91 Unspecified atrial fibrillation; J45.909 Unspecified asthma, uncomplicated; I11.0 Hypertensive heart disease with heart failure; I50.9 Heart failure, unspecified; K21.9 Gastro-esophageal reflux disease without esophagitis; N28.9 Disorder of kidney and ureter, unspecified; D64.9 Anemia, unspecified; E66.01 Morbid (severe) obesity due to excess calories; Z68.39 Body mass index [BMI] 39.0-39.9, adult; I65.29 Occlusion and stenosis of unspecified carotid artery; I69.398 Other sequelae of cerebral infarction; H53.8 Other visual disturbances; Z86.14 Personal history of Methicillin resistant Staphylococcus aureus infection; Z79.01 Long term (current) use of anticoagulants; Z79.82 Long term (current) use of aspirin; Z79.4 Long term (current) use of insulin; Z79.51 Long term (current) use of inhaled steroids; Z79.899 Other long term (current) drug therapy; Z91.030 Bee allergy status; Z87.440 Personal history of urinary (tract) infections; Z87.891 Personal history of nicotine dependence
CPT/HCPCS: 11042; 11045 ×19; J2250; J2270; J2001; J3010; J2704

== ENCOUNTER → 2021-05-30 | Outpatient (CLI) | payer MEDICARE ==
--- NOTE | 2021-06-03 04:58 | CT ---
EXAMINATION TYPE: CT upper extremity LT wo con DATE OF EXAM: 05/30/2021 COMPARISON: Outside left shoulder and humeral x-ray January 29, 2021 HISTORY: pain and swelling around surgical site of left humerus, patient estimates surgery was perfor med 4 years earlier. No history of prior cancer per referring physicians. CT DLP: 390 mGycm Automated exposure control for dose reduction was used. FINDINGS: Evaluation is limited by artifact from patient's large body habitus. Evaluation is also jay ited by lack of imaging in true anatomical planes. Metallic screws in the left humeral head on x-ray are not included in [id number]. There is metalli c fixating plate causing streak artifact through the mid shaft of the left humerus with malunion, dis scott screws displaced out of the plate into the bone. Focal expansion at the distal aspect of the plat e with cortical thinning with suggestion of soft tissue mass bulging and destroying the medial aspect of the bone is present for reference axial images series 5 images 36 through 45. Left elbow joint appears within normal limits. Cardiomegaly is suspected on localizer. Prominent but subcentimeter left axillary lymph nodes seen ax ial image 11 series 6 for reference. Coronary artery calcification is present, noted marker of underl karen coronary artery disease coronal image 60 series 8. IMPRESSION: Malunion is present as detailed above. Suspicion for underlying neoplasm. Advise orthoped ic oncology referral to further evaluate.
== END | disposition home or self-care (01) ==
LOC: RADCTMAIN 14:15
PROVIDERS: ATTEND Orthopaedic Surgery
DX: T84.328A Displacement of other bone devices, implants and grafts, initial encounter (principal)